=== PATIENT | female | born 1955 | race Caucasian/White ===

== ENCOUNTER → 2017-07-17 09:44 | Outpatient (CLI) | payer OTHER, SELFPAY ==
[2017-07-17 12:32] LABS: AST(SGOT) 17 U/L (15-37); Alanine Aminotransfer ALT/SGPT 29 U/L (13-56); Albumin, Serum 3.7 g/dL (3.2-5.0); Alkaline Phosphatase 55 U/L (45-117); Anion Gap 7 (5-15); BUN 16 mg/dL (7-18); Calcium,Total 8.9 mg/dL (8.5-10.1); Chloride 99 mmol/L (98-107); Cholesterol 250 mg/dL (200); Creatinine, Serum 0.89 mg/dL (0.55-1.02); EST Glomerular Filtration Rate 68 mL/min (>60); Est Glom Filt Rate - Afr Amer 82 mL/min (>60); Globulin 3.8 g/dL (2.2-4.2); Glucose 155 mg/dL (74-106); High Density Lipoprotein 63 mg/dL; Protein, Total 7.5 g/dL (6.4-8.2); Sodium Level 135 mmol/L (136-145); Triglycerides 165 mg/dL; Very Low Density Lipoprotein 33 mg/dL (5-40)
[2017-07-17 12:33] LABS: Hemoglobin A1c 7.2 % (4.2-6.3)
[2017-07-17 12:39] LABS: Microalbumin,Random Urine 6.4 mg/L (NO RANGE EST.); Microalbumin:Creatinine Ratio 12.1 mg/g CRE (<30 mg/g CRE)
== END ==
PROVIDERS: Family Provider Family Medicine; PCP Family Medicine; Visit Provider Family Medicine
DX: E11.9 Type 2 diabetes mellitus without complications (principal)
CPT/HCPCS: 36415; 80053; 80061; 82043; 82570; 83036

== ENCOUNTER → 2017-10-10 11:53 | Outpatient (CLI) | payer OTHER, SELFPAY ==
--- NOTE | 2017-10-10 11:53 | DT_ITS ---
This patient was seen during an EMR downtime October 06, 2017 - October 13, 2017. This patient may have a combination of paper and electronic documentation or all paper documentation. All documentation is viewable within the e-chart portion of [facility] for each patient visit.
[2017-10-11 06:08] LABS: Cholesterol 139 mg/dL (200); Free T3 2.9 pg/mL (2.18-3.98); High Density Lipoprotein 65 mg/dL; T4 Free Direct 1.27 ng/dL (0.76-1.46); Thyroid Stim Hormone (TSH) 0.29 uIU/mL (0.358-3.74); Triglycerides 185 mg/dL; Very Low Density Lipoprotein 37 mg/dL (5-40)
[2017-10-13 09:34] LABS: Vitamin B12 1177 pg/mL (211-911); Vitamin D,25 Hydroxy 42.1 ng/mL (29.95-100.01)
== END ==
PROVIDERS: Family Provider Family Medicine; PCP Family Medicine; Visit Provider Family Medicine
DX: Z00.00 Encounter for general adult medical examination without abnormal findings (principal); E03.9 Hypothyroidism, unspecified; E11.9 Type 2 diabetes mellitus without complications; E89.0 Postprocedural hypothyroidism; E78.00 Pure hypercholesterolemia, unspecified
CPT/HCPCS: 36415; 80061; 82306; 82607; 84439; 84443; 84481

== ENCOUNTER → 2018-02-02 09:44 | Outpatient (CLI) | payer OTHER, SELFPAY ==
[2018-02-02 12:11] LABS: Erythrocyte Sedimentation Rate 36 mm/hr (0-30)
[2018-02-02 12:22] LABS: ALB/GLOB Ratio 0.9 RATIO (0.9-2.4); AST(SGOT) 15 U/L (15-37); Alanine Aminotransfer ALT/SGPT 24 U/L (13-56); Albumin, Serum 3.8 g/dL (3.2-5.0); Alkaline Phosphatase 61 U/L (45-117); Anion Gap 11 (5-15); BUN 24 mg/dL (7-18); BUN/Creat Ratio 23.1 RATIO (10-20); Calcium,Total 9.5 mg/dL (8.5-10.1); Chloride 101 mmol/L (98-107); Cholesterol 156 mg/dL (200); Creatinine, Serum 1.04 mg/dL (0.55-1.02); EST Glomerular Filtration Rate 57 mL/min (>60); Est Glom Filt Rate - Afr Amer 69 mL/min (>60); Globulin 4.1 g/dL (2.2-4.2); Glucose 136 mg/dL (74-106); High Density Lipoprotein 65 mg/dL; Potassium 4.2 mmol/L (3.5-5.1); Protein, Total 7.9 g/dL (6.4-8.2); Rheumatoid Factor < 10.0 IU/mL (<15); Sodium Level 138 mmol/L (136-145); T4 Free Direct 1.23 ng/dL (0.76-1.46); Thyroid Stim Hormone (TSH) 0.99 uIU/mL (0.358-3.74); Triglycerides 135 mg/dL; Very Low Density Lipoprotein 27 mg/dL (5-40); Vitamin B12 1313 pg/mL (211-911); Vitamin D,25 Hydroxy 65.8 ng/mL (29.95-100.01)
[2018-02-02 12:28] LABS: Microalbumin,Random Urine < 5.0 mg/L (NO RANGE EST.)
[2018-02-04 11:43] LABS: ANTINUCLEAR ANTIBODIES DIRECT Negative (Negative)
[2018-02-05 13:31] LABS: C-Peptide 3.9 ng/mL (1.1-4.4)
== END ==
PROVIDERS: PCP Family Medicine; Visit Provider Internal Medicine Endocrinology, Diabetes & Metabolism
DX: E11.65 Type 2 diabetes mellitus with hyperglycemia (principal); R61 Generalized hyperhidrosis
CPT/HCPCS: 36415; 80053; 80061; 82043; 82306; 82570; 82607; 83520; 84439; 84443; 84681; 85652; 86038; 86431

== ENCOUNTER → 2018-03-17 10:37 | Outpatient (CLI) | payer OTHER, SELFPAY ==
--- NOTE | 2018-03-17 10:49 | BD_ITS ---
STUDY: DUAL ENERGY X-RAY ABSORPTIOMETRY / DXA REASON FOR EXAM: Female, 62 years old. The patient is postmenopausal. Loss of height. TECHNIQUE: Bone Mineral Density (BMD) measurements of lumbar spine and bilateral hips were obtained. COMPARISON: Comparison is made with prior study dated July 01, 2002. FINDINGS: Lumbar Spine (L1-L4): g/cm2 (0.915) / T-score (-2.2) / Z-score (-0.7) Findings are suggestive of osteopenia with a moderate fracture risk. Left Femur Total: g/cm2 (0.855) / T-score (-1.2) / Z-score (-0.1) Left Femoral Neck: g/cm2 (0.719) / T-score (-2.3) / Z-score (0.9) Right Femur Total: g/cm2 (0.846) / T-score (-1.3) / Z-score (-0.1) Right Femoral Neck: g/cm2 (0.761) / T-score (-2.0) / Z-score (-0.6) The T-Scores on the most recent prior examination were: Lumbar Spine (L1-L4): There has been worsening of bone density since the previous examination. Left Femur Total: which represents a worsening of 8.5%. BD/Dexa Bone Density Study IMPRESSION: The patient is considered osteopenic as outlined below according to World Randall Organization (WHO) criteria with a moderate fracture risk. There has been worsening of bone density since the previous examination. Reference Information: The T-score is the number of standard deviations above or below the standard which is normal for young adults at their peak bone mineral density. The World Health Organization (WHO) interprets the T-scores as follows: Above -1 Normal bone density Between -1 and -2.5 Osteopenia Equal to / or below -2.5 Osteoporosis As a practical clinical guideline, osteopenia may be graded as follows: Mild -1 through -1.5 Moderate -1.6 through -2.0 Severe -2.1 through -2.4 The Z-score is the number of standard deviations above or below age-matched controls. A Z-score of less than -1.5 would be considered abnormal. References: 1. NIH Osteoporosis and Related Bone Diseases http://www.osteo.org 2. International Society for Clinical Densitometry http://www.iscd.org 3. National Osteoporosis Foundation http://www.nof.org Electronically Signed: Kemal Adams MD at 15:44 EST Tel [phone], Service support ,
== END ==
PROVIDERS: PCP Family Medicine; Visit Provider Internal Medicine Endocrinology, Diabetes & Metabolism
DX: Z13.820 Encounter for screening for osteoporosis (principal)
CPT/HCPCS: 77080

== ENCOUNTER → 2018-05-27 08:54 | Outpatient (CLI) | payer OTHER, SELFPAY ==
[2018-05-27 12:50] LABS: AST(SGOT) 20 U/L (15-37); Alanine Aminotransfer ALT/SGPT 26 U/L (13-56); Albumin, Serum 3.9 g/dL (3.2-5.0); Alkaline Phosphatase 72 U/L (45-117); Anion Gap 12 (5-15); BUN 23 mg/dL (7-18); BUN/Creat Ratio 24.3 RATIO (10-20); Calcium,Total 9.7 mg/dL (8.5-10.1); Chloride 103 mmol/L (98-107); Cholesterol 164 mg/dL (200); Creatinine, Serum 0.95 mg/dL (0.55-1.02); EST Glomerular Filtration Rate 63 mL/min (>60); Est Glom Filt Rate - Afr Amer 76 mL/min (>60); Globulin 3.9 g/dL (2.2-4.2); Glucose 111 mg/dL (74-106); High Density Lipoprotein 66 mg/dL; Protein, Total 7.8 g/dL (6.4-8.2); Sodium Level 139 mmol/L (136-145); Triglycerides 192 mg/dL; Very Low Density Lipoprotein 38 mg/dL (5-40)
[2018-05-27 13:27] LABS: Hemoglobin A1c 7.3 % (4.2-6.3)
--- OUTSIDE RECORDS SUMMARY | 2018-07-29 05:25 | XMS RPT_ITS ---
:1955 Author Organization OHIP Care Team Providers Name Role Phone Betty Blake Attending Unavailable Betty Blake Attending Unavailable Betty Blake Primary Care Unavailable Betty Blake Attending Unavailable Betty Blake Primary Care Unavailable Sarita Khan Attending Unavailable Sarita Khan Attending Unavailable PROBLEMS PROBLEMS DATE TYPE CONDITION / CODE ATTENDING STATUS SOURCE 02/20/2018 Unknown E11.65 - Type 2 Erin Active [place] diabetes mellitus Sarita N. [facility] / E11.65(ICD-10) Repository 10/29/2017 Unknown Z00.00 - Encounter Betty Blake Active [place] for general adult [facility] without abnormal Repository findings / Z00.00(ICD-10) 08/11/2017 Active Unknown / NA Active [facility] UNK(Unknown) Main [place] Repository PROCEDURES PROCEDURES No Procedure Records FoundRESULTS RESULTS COMPREHENSIVE METABOLIC Collected: 05/27/2018 Status: F Source: [place] YARELY 8:56 AM [facility] REPOSITORY TYPE CODE TESTS RESULT OUT OF RANGE REFERENCE UNITS LAB L501.0100 74-106 mg/dL High GLU 111 Result Comment: Fasting Glucose result from 100 to 125 mg/dL suggests IMPAIRED HOMEOSTASIS per A.D.A. criteria. Please note revised GLUCOSE reference range effective 2017. LAB L501.1000 7-18 mg/dL High BUN 23 LAB L501.1100 0.55-1.02 mg/dL Normal CREAT,SERUM 0.95 Result Comment: The validity of the calculated GFR AND GFRAA in patients over 70 years has not been determined. Clinical correlation is essential. LAB L501.1110 >60 mL/min Normal EST GFR 63 Result Comment: Non- GFR Calc LAB L501.1115 >60 mL/min Normal EST GFR - AA 76 Result Comment: GFR Calc LAB L501.1300 10-20 RATIO High BUN/CRE 24.3 LAB L501.1500 6.4-8.2 g/dL T Normal PROT 7.8 LAB L501.1800 3.2-5.0 g/dL Normal ALB 3.9 LAB L501.1950 2.2-4.2 g/dL Normal GLOB 3.9 LAB L501.2000 0.9-2.4 RATIO Normal A/G 1.0 LAB L501.2200 8.5-10.1 mg/dL CA Normal 9.7 LAB L501.4100 15-37 U/L Normal AST 20 LAB L501.4305 45-117 U/L Normal ALK P 72 LAB L501.4405 13-56 U/L Normal ALT 26 LAB L501.4600 0.20-1.00 mg/dL T Normal BILI 0.40 LAB L501.5300 136-145 mmol/L NA Normal 139 LAB L501.5600 3.5-5.1 mmol/L K Normal 4.0 LAB L501.5900 98-107 mmol/L CL Normal 103 LAB L501.6100 21.0-32.0 mmol/L Normal CO2 24.0 LAB L501.6200 5-15 Normal GAP 12 Performed By: #### L500.4050, L500.4100, L501.9520 #### [facility] [address] [place], [place], [address] LIPID PROFILE Collected: 05/27/2018 Status: F Source: [place] 8:[address] [facility] REPOSITORY TYPE CODE TESTS RESULT OUT OF RANGE REFERENCE UNITS LAB L501.4900 200 mg/dL Normal CHOL 164 Result Comment: <200 mg/dL Desirable 200-240 mg/dL Borderline >240 mg/dL High Risk LAB L501.5000 mg/dL Normal TRIG 192 Result Comment: The drugs N-Acetylcysteine and Metamizole may falsely depress this assay. Serum Triglycerides Reference Interval Normal <150 mg/dL Borderline high 150 - 199 mg/dL High 200 - 499 mg/dL Very High > or = 500 mg/dL LAB L501.6400 mg/dL Normal HDL 66 Result Comment: The drugs N-Acetylcysteine and Metamizole may falsely depress this assay. Reference Range HDL <40 mg/dL Low HDL Cholesterol HDL >or= 60 mg/dL High HDL Cholesterol LAB L501.6500 0-130 mg/dL Normal LDL 60 LAB L501.6600 5-40 mg/dL Normal VLDL 38 Performed By: #### L500.4050, L500.4100, L501.9520 #### [facility] [address] [place], [address] THYROID STIM HORMONE Collected: 05/27/2018 Status: F Source: [place] (TSH) 8:[address] [facility] REPOSITORY TYPE CODE TESTS RESULT OUT OF RANGE REFERENCE UNITS LAB L501.9520 0.358-3.74 uIU/mL Normal TSH 0.60 Performed By: #### L500.4050, L500.4100, L501.9520 #### [facility] [address] [facility] [place], [address] HEMOGLOBIN A1C Collected: 05/27/2018 Status: F Source: [place] 8:[address] [facility] REPOSITORY TYPE CODE TESTS RESULT OUT OF RANGE REFERENCE UNITS LAB L501.9985 4.2-6.3 % High HGB A1C 7.3 Performed By: #### L501.9985 #### [facility] [address] [place], [address] DEXA BONE DENSITY Observed: 03/17/2018 Status: F Source: [place] STUDY 10:[address] [facility] REPOSITORY [facility] Imaging Services [address] [place] [address] Dexa Bone Density Study MR#: [id number] Acct: [id number] Name: CHAYA JAMA Rep #: [id number] : 1955 F 62 From: Kemal Adams MD PCP: Betty Blake MD Status: REG CLI Study: Dexa Bone Density Study Date of Exam: 03/17/18 Exam# [id number] Ordering Dr: Sarita Khan MD STUDY: DUAL ENERGY X-RAY ABSORPTIOMETRY / DXA REASON FOR EXAM: Female, 62 years old. The patient is postmenopausal. Loss of height. TECHNIQUE: Bone Mineral Density (BMD) measurements of lumbar spine and bilateral hips were obtained. COMPARISON: Comparison is made with prior study dated July 01, 2002. FINDINGS: Lumbar Spine (L1-L4): g/cm2 (0.915) / T-score (-2.2) / Z-score (-0.7) Findings are suggestive of osteopenia with a moderate fracture risk. Left Femur Total: g/cm2 (0.855) / T-score (-1.2) / Z- score (-0.1) Left Femoral Neck: g/cm2 (0.719) / T-score (-2.3) / Z- score (0.9) Right Femur Total: g/cm2 (0.846) / T-score (-1.3) / Z- score (-0.1) Right Femoral Neck: g/cm2 (0.761) / T-score (-2.0) / Z-score (-0.6) The T-Scores on the most recent prior examination were: Lumbar Spine (L1-L4): There has been worsening of bone density since the previous examination. Left Femur Total: which represents a worsening of 8.5%. BD/Dexa Bone Density Study IMPRESSION: The patient is considered osteopenic as outlined below according to World Randall Organization (WHO) criteria with a moderate fracture risk. There has been worsening of bone density since the previous examination. Reference Information: The T-score is the number of standard deviations above or below the standard which is normal for young adults at their peak bone mineral density. The World Health Organization (WHO) interprets the T-scores as follows: Above -1 Normal bone density Between -1 and -2.5 Osteopenia Equal to / or below -2.5 Osteoporosis As a practical clinical guideline, osteopenia may be graded as follows: Mild -1 through -1.5 Moderate -1.6 through -2.0 Severe -2.1 through -2.4 The Z-score is the number of standard deviations above or below age-matched controls. A Z-score of less than -1.5 would be considered abnormal. References: 1. NIH Osteoporosis and Related Bone Diseases http://www.osteo.org 2. International Society for Clinical Densitometry http://www.iscd.org 3. National Osteoporosis Foundation http://www.nof.org Electronically Signed: Kemal Adams MD at 15:44 EST Tel [phone], Service support , CC: Sarita Khan MD; Betty Blake MD Invas Tech: Signed ERYTHROCYTE SED RATE Collected: 02/02/2018 Status: F Source: [place] 9:[address] [facility] REPOSITORY TYPE CODE TESTS RESULT OUT OF RANGE REFERENCE UNITS LAB L102.0000 0-30 mm/hr High SED RATE 36 Performed By: #### L101.9900 #### [facility] [place], [place], [address] COMPREHENSIVE METABOLIC Collected: 02/02/2018 Status: F Source: [place]TT 9:[address] [facility] REPOSITORY Order Comment: Comments: [id number] METANEPHRINES EDTA PLASMA REF TYPE CODE TESTS RESULT OUT OF RANGE REFERENCE UNITS LAB L501.0100 74-106 mg/dL High GLU 136 Result Comment: Fasting Glucose result greater than or equal to 126 mg/dL suggests DIABETES MELLITUS per A.D.A. criteria. Please note revised GLUCOSE reference range effective 2017. LAB L501.1000 7-18 mg/dL High BUN 24 LAB L501.1100 0.55-1.02 mg/dL High CREAT,SERUM 1.04 Result Comment: The validity of the calculated GFR AND GFRAA in patients over 70 years has not been determined. Clinical correlation is essential. LAB L501.1110 >60 mL/min Low EST GFR 57 Result Comment: Non- GFR Calc LAB L501.1115 >60 mL/min Normal EST GFR - AA 69 Result Comment: GFR Calc LAB L501.1300 10-20 RATIO High BUN/CRE 23.1 LAB L501.1500 6.4-8.2 g/dL T Normal PROT 7.9 LAB L501.1800 3.2-5.0 g/dL Normal ALB 3.8 LAB L501.1950 2.2-4.2 g/dL Normal GLOB 4.1 LAB L501.2000 0.9-2.4 RATIO Normal A/G 0.9 LAB L501.2200 8.5-10.1 mg/dL CA Normal 9.5 LAB L501.4100 15-37 U/L Normal AST 15 LAB L501.4305 45-117 U/L Normal ALK P 61 LAB L501.4405 13-56 U/L Normal ALT 24 LAB L501.4600 0.20-1.00 mg/dL T Normal BILI 0.40 LAB L501.5300 136-145 mmol/L NA Normal 138 LAB L501.5600 3.5-5.1 mmol/L K Normal 4.2 LAB L501.5900 98-107 mmol/L CL Normal 101 LAB L501.6100 21.0-32.0 mmol/L Normal CO2 26.0 LAB L501.6200 5-15 Normal GAP 11 Performed By: #### L500.4050, L500.4100, L501.9520, L505.7010, L506.0400 #### [facility] [address] [place], [place], [address] LIPID PROFILE Collected: 02/02/2018 Status: F Source: [place] 9:[address] [facility] REPOSITORY Order Comment: Comments: [id number] METANEPHRINES EDTA PLASMA REF TYPE CODE TESTS RESULT OUT OF RANGE REFERENCE UNITS LAB L501.4900 200 mg/dL Normal CHOL 156 Result Comment: <200 mg/dL Desirable 200-240 mg/dL Borderline >240 mg/dL High Risk LAB L501.5000 mg/dL Normal TRIG 135 Result Comment: The drugs N-Acetylcysteine and Metamizole may falsely depress this assay. Serum Triglycerides Reference Interval Normal <150 mg/dL Borderline high 150 - 199 mg/dL High 200 - 499 mg/dL Very High > or = 500 mg/dL LAB L501.6400 mg/dL Normal HDL 65 Result Comment: The drugs N-Acetylcysteine and Metamizole may falsely depress this assay. Reference Range HDL <40 mg/dL Low HDL Cholesterol HDL >or= 60 mg/dL High HDL Cholesterol LAB L501.6500 0-130 mg/dL Normal LDL 64 LAB L501.6600 5-40 mg/dL Normal VLDL 27 Performed By: #### L500.4050, L500.4100, L501.9520, L505.7010, L506.0400 #### [facility] [address] [place], [place], [address] THYROID STIM HORMONE Collected: 02/02/2018 Status: F Source: [place] (TSH) 9:[address] [facility] REPOSITORY Order Comment: Comments: [id number] METANEPHRINES EDTA PLASMA REF TYPE CODE TESTS RESULT OUT OF RANGE REFERENCE UNITS LAB L501.9520 0.358-3.74 uIU/mL Normal TSH 0.99 Performed By: #### L500.4050, L500.4100, L501.9520, L505.7010, L506.0400 #### [facility] [address] [place], [address] RHEUMATOID FACTOR Collected: 02/02/2018 Status: F Source: [place] 9:[address] [facility] REPOSITORY Order Comment: Comments: [id number] METANEPHRINES EDTA PLASMA REF TYPE CODE TESTS RESULT OUT OF RANGE REFERENCE UNITS LAB L505.7010 <15 IU/mL Normal RHEUMATOID FAC < 10.0 Performed By: #### L500.4050, L500.4100, L501.9520, L505.7010, L506.0400 #### [facility] [address] [place], [address] T4 FREE DIRECT Collected: 02/02/2018 Status: F Source: [place] 9:[address] [facility] REPOSITORY Order Comment: Comments: [id number] METANEPHRINES EDTA PLASMA REF TYPE CODE TESTS RESULT OUT OF RANGE REFERENCE UNITS LAB L506.0400 0.76-1.46 ng/dL Normal T4 FREE 1.23 DIRECT Performed By: #### L500.4050, L500.4100, L501.9520, L505.7010, L506.0400 #### [facility] [address] [place], [address] VITAMIN B12 Collected: 02/02/2018 Status: F Source: [place] 9:[address] [facility] REPOSITORY TYPE CODE TESTS RESULT OUT OF REFERENCE UNITS RANGE LAB L503.0105 211-911 pg/mL High Vitamin B12 1313 Performed By: #### L503.0105, L506.1000 #### [facility] [address] [place], [address] VITAMIN D,25 HYDROXY Collected: 02/02/2018 Status: F Source: [place] 9:[address] [facility] REPOSITORY TYPE CODE TESTS RESULT OUT OF RANGE REFERENCE UNITS LAB L506.1000 29.95-100.01 ng/mL Normal Vitamin D 65.8 25-OH Result Comment: Vitamin D 25(OH) Status Range Deficiency <20 ng/mL (50nmol/L) Insuffciency 20 - 30 ng/mL (50 - 75 nmol/L) Sufficiency 30 - 100 ng/mL (75 - 250 nmol/L) Toxicity >100 ng/mL (>250 nmol/L) Performed By: #### L503.0105, L506.1000 #### [facility] [address] [place], [place], [address] MICROALB:CREAT Collected: 02/02/2018 Status: F Source: [place] RATIO,RANDOM UR 9:[address] [facility] REPOSITORY TYPE CODE TESTS RESULT OUT OF RANGE REFERENCE UNITS LAB L501.1200 NO RANGE EST. mg/dL 31.60 Normal UR CREAT LAB L502.0500 NO RANGE EST. mg/L < 5.0 Normal MICROALBUMI N,UR LAB L502.0600 <30 mg/g CRE mg/g CRE Test Normal not performed MALB:CREAT Performed By: #### L502.0250 #### [facility] [address], [address] ANTINUCLEAR ANTIBODIES Collected: 02/02/2018 Status: F Source: [place] DIRECT 9:[address] [facility] REPOSITORY TYPE CODE TESTS RESULT OUT OF RANGE REFERENCE UNITS LAB L3100.5475 Negative Normal Negative KIM-DIRECT Result Comment: Performed at: [address] [id number] Car Park Attendant: Jan Lorenzo PhD, Phone: [phone] Performed By: #### L3100.5475 #### [facility] (refer to report for specific site) refer to report for address and phone number C-PEPTIDE Collected: 02/02/2018 Status: F Source: [place] 9:[address] [facility] REPOSITORY TYPE CODE TESTS RESULT OUT OF RANGE REFERENCE UNITS LAB L3100.7750 1.1-4.4 ng/mL Normal C PEPTIDE 3.9 [address]258 Result Comment: C-Peptide reference interval is for fasting patients. Performed at: [address] [id number] [place] Attendant: Raj Granados MD, Phone: [phone] Performed at: [address], [place] [id number] [place] Attendant: Jan Lorenzo PhD, Phone: [phone] Performed By: #### L3100.7750, L3400.5105 #### [facility] (refer to report for specific site) refer to report for address and phone number TRYPTASE Collected: 02/02/2018 Status: F Source: [place] 9:[address] [facility] REPOSITORY TYPE CODE TESTS RESULT OUT OF REFERENCE UNITS RANGE LAB L3400.5105 2.2-13.2 ug/L High TRYPTASE 18.9 Performed By: #### L3100.7750, L3400.5105 #### [facility] (refer to report for specific site) refer to report for address and phone number MISCELLANEOUS LAB Collected: 02/02/2018 Status: F Source: [place] PROCEDURE 9:[address] [facility] REPOSITORY Order Comment: Comments: [id number] METANEPHRINES EDTA PLASMA REF Test(s) Ordered: [id number] METANEPHRINES EDTA PLASMA REF TYPE CODE TESTS RESULT OUT OF RANGE REFERENCE UNITS LAB L801.1541 Normal [facility] LAB TEST Result Comment: TEST RESULT LIMITS Metanephrines, Frac., Pl. Free Normetanephrine, Pl 101 pg/mL 0 - 145 Metanephrine, Pl 22 pg/mL 0 - 62 Concentrations of Normetanephrine between 146 and 487 pg/mL, and Metanephrine between 63 and 255 pg/mL are considered indeterminate. Follow-up biochemical testing is recommended when patient levels fall within this indeterminate range. These tests include repeat testing of plasma/urinary fractionated metanephrines and plasma catecholamines. TESTING PERFORMED AT [facility]. ORIGINAL REPORT ON FILE IN LAB CONTAINS ADDITIONAL TEST SITE INFORMATION. Performed By: #### L801.1541 #### [facility] [address] [place], [address] DOWNTIME REPORT Observed: 10/23/2017 Status: F Source: [place] 12:[address] [facility] REPOSITORY [facility] Medical Records Department [address] [place] [address] Downtime Report MR#: [id number] Acct: [id number] Name: CHAYA JAMA Rep #: [id number] : 1955 61 From: Martínez Russell PCP: Betty Blake MD Status: REG CLI This patient was seen during an EMR downtime October 06, 2017 - October 13, 2017. This patient may have a combination of paper and electronic documentation or all paper documentation. All documentation is viewable within the e-chart portion of [facility] for each patient visit. LIPID PROFILE Collected: 10/10/2017 Status: F Source: [place] 11:[address] [facility] REPOSITORY TYPE CODE TESTS RESULT OUT OF RANGE REFERENCE UNITS LAB L501.4900 200 mg/dL Normal CHOL 139 Result Comment: <200 mg/dL Desirable 200-240 mg/dL Borderline >240 mg/dL High Risk LAB L501.5000 mg/dL Normal TRIG 185 Result Comment: The drugs N-Acetylcysteine and Metamizole may falsely depress this assay. Serum Triglycerides Reference Interval Normal <150 mg/dL Borderline high 150 - 199 mg/dL High 200 - 499 mg/dL Very High > or = 500 mg/dL LAB L501.6400 mg/dL Normal HDL 65 Result Comment: The drugs N-Acetylcysteine and Metamizole may falsely depress this assay. Reference Range HDL <40 mg/dL Low HDL Cholesterol HDL >or= 60 mg/dL High HDL Cholesterol LAB L501.6500 0-130 mg/dL Normal LDL 37 LAB L501.6600 5-40 mg/dL Normal VLDL 37 Performed By: #### L500.4100, L501.49130, L501.9520, L506.0400 #### [facility] [address] [place], [address] FREE T3 Collected: 10/10/2017 Status: F Source: [place] 11:[address] [facility] REPOSITORY TYPE CODE TESTS RESULT OUT OF RANGE REFERENCE UNITS LAB L501.72741 2.18-3.98 pg/mL Normal FREE T3 2.9 Performed By: #### L500.4100, L501.49509, L501.9520, L506.0400 #### [facility] [address] [place], [address] THYROID STIM HORMONE Collected: 10/10/2017 Status: F Source: [place] (TSH) 11:[address] [facility] REPOSITORY TYPE CODE TESTS RESULT OUT OF RANGE REFERENCE UNITS LAB L501.9520 0.358-3.74 uIU/mL Low TSH 0.29 Performed By: #### L500.4100, L501.41445, L501.9520, L506.0400 #### [facility] [address] [place], [address] T4 FREE DIRECT Collected: 10/10/2017 Status: F Source: [place] 11:[address] [facility] REPOSITORY TYPE CODE TESTS RESULT OUT OF RANGE REFERENCE UNITS LAB L506.0400 0.76-1.46 ng/dL Normal T4 FREE 1.27 DIRECT Performed By: #### L500.4100, L501.40347, L501.9520, L506.0400 #### [facility] [address] [place], [address] VITAMIN B12 Collected: 10/10/2017 Status: F Source: [place] 11:[address] [facility] REPOSITORY TYPE CODE TESTS RESULT OUT OF REFERENCE UNITS RANGE LAB L503.0105 211-911 pg/mL High Vitamin B12 1177 Performed By: #### L503.0105, L506.1000 #### [facility] [address] [place], [address] VITAMIN D,25 HYDROXY Collected: 10/10/2017 Status: F Source: [place] 11:[address] [facility] REPOSITORY TYPE CODE TESTS RESULT OUT OF RANGE REFERENCE UNITS LAB L506.1000 29.95-100.01 ng/mL Normal Vitamin D 42.1 25-OH Result Comment: Vitamin D 25(OH) Status Range Deficiency <20 ng/mL (50nmol/L) Insuffciency 20 - 30 ng/mL (50 - 75 nmol/L) Sufficiency 30 - 100 ng/mL (75 - 250 nmol/L) Toxicity >100 ng/mL (>250 nmol/L) Performed By: #### L503.0105, L506.1000 #### [facility] [address] [place], [address] CNCO Observed: 08/11/2017 Status: COMPLETED Source: [place] 4:15 PM [facility] REPOSITORY HNO ID: [id number] Author: Mammography Coordinator Service: (none) Author Type: Physician Type: Letter Filed: 08/12/2017 11:33 PM Note Text: August 11, 2017 PID: [id number] Chaya Jama [address] [place] [address] Dear Nathan Tobias, We are pleased to inform you that the results of your recent breast imaging exam on 08/11/2017 are normal. Your mammogram demonstrates that you have dense breast tissue, which could hide abnormalities. Dense breast tissue, in and of itself, is a relatively common condition. Therefore, this information is not provided to cause undue concern; rather, it is to raise your awareness and promote discussion with your health care provider regarding the presence of dense breast tissue in addition to other risk factors. Early detection of cancer is very important. We also understand recommendations regarding breast cancer screening are controversial. Please discuss with your primary care provider which strategy is best for you and whether a mammogram is right for you. Your imaging studies and report will be kept on file at [facility] as part of your permanent medical record and are available for your continuing care. Thank you for allowing us to help in meeting your health care needs. Sincerely, Dr. Ro Interpreting Radiologist [facility] (Normal over 40) DELONTE SCREENING Observed: 08/11/2017 Status: F Source: [place] 1:35 PM [facility] REPOSITORY * * *Final Report* * * DATE OF EXAM: Aug 11 2017 1:35PM PUNEET 0581 - DELONTE SCREENING / PROCEDURE REASON: ROUTINE * * * * Physician Interpretation * * * * RESULT: #[id number] - [facility] SCREENING BILATERAL DIGITAL SCREENING MAMMOGRAM WITH CAD: 08/11/2017 HISTORY: Routine /Screening Mammogram - patient reports NO breast symptoms /Priors available for comparison. RESULT: TECHNIQUE: The study was acquired using full field digital technology and interpreted from soft copy. Current study was also evaluated with a Computer Aided Detection (CAD). Comparison is made to exams dated: 07/26/2016 mammogram, 07/26/2015 mammogram, and 04/12/2014 mammogram - [facility]. The tissue of both breasts is heterogeneously dense. This may lower the sensitivity of mammography. No significant masses, calcifications, or other findings are seen in either breast. There has been no significant interval change. IMPRESSION: NEGATIVE There is no mammographic evidence of malignancy.A 1 year screening mammogram is recommended. Jyoti aguillon/carrie:08/11/2017 16:15:04 Internal Sales Engineer: Pippa CORDOVA (R)), [facility] letter sent: Normal over 40 Mammogram BI-RADS: 1 Negative Invas Tech: Carrie Transcribe Date/Time: Aug 11 2017 1:20P Dictated by: JYOTI RO MD This examination was interpreted and the report reviewed and electronically signed by: JYOTI RO MD on Aug 11 2017 4:15PM EST [id number] COMPREHENSIVE METABOLIC Collected: 07/17/2017 Status: F Source: [facility] 9:[address] [facility] REPOSITORY TYPE CODE TESTS RESULT OUT OF RANGE REFERENCE UNITS LAB L501.0100 74-106 mg/dL High GLU 155 Result Comment: Fasting Glucose result greater than or equal to 126 mg/dL suggests DIABETES MELLITUS per A.D.A. criteria. Please note revised GLUCOSE reference range effective 2017. LAB L501.1000 7-18 mg/dL Normal BUN 16 LAB L501.1100 0.55-1.02 mg/dL Normal CREAT,SERUM 0.89 Result Comment: The validity of the calculated GFR AND GFRAA in patients over 70 years has not been determined. Clinical correlation is essential. LAB L501.1110 >60 mL/min Normal EST GFR 68 Result Comment: Non- GFR Calc LAB L501.1115 >60 mL/min Normal EST GFR - AA 82 Result Comment: GFR Calc LAB L501.1300 10-20 RATIO Normal BUN/CRE 18.0 LAB L501.1500 6.4-8.2 g/dL T Normal PROT 7.5 LAB L501.1800 3.2-5.0 g/dL Normal ALB 3.7 LAB L501.1950 2.2-4.2 g/dL Normal GLOB 3.8 LAB L501.2000 0.9-2.4 RATIO Normal A/G 1.0 LAB L501.2200 8.5-10.1 mg/dL CA Normal 8.9 LAB L501.4100 15-37 U/L Normal AST 17 LAB L501.4305 45-117 U/L Normal ALK P 55 LAB L501.4405 13-56 U/L Normal ALT 29 Result Comment: Please note revised ALT reference range effective 2017. LAB L501.4600 0.20-1.00 mg/dL Normal T BILI 0.40 LAB L501.5300 136-145 mmol/L Low NA 135 LAB L501.5600 3.5-5.1 mmol/L Normal K 4.0 LAB L501.5900 98-107 mmol/L Normal CL 99 LAB L501.6100 21.0-32.0 mmol/L Normal CO2 29.0 LAB L501.6200 5-15 Normal GAP 7 Performed By: #### L500.4050, L500.4100 #### [facility] [address] [place], [address] LIPID PROFILE Collected: 07/17/2017 Status: F Source: [place] 9:[address] [facility] REPOSITORY TYPE CODE TESTS RESULT OUT OF RANGE REFERENCE UNITS LAB L501.4900 200 mg/dL High CHOL 250 Result Comment: <200 mg/dL Desirable 200-240 mg/dL Borderline >240 mg/dL High Risk LAB L501.5000 mg/dL Normal TRIG 165 Result Comment: The drugs N-Acetylcysteine and Metamizole may falsely depress this assay. Serum Triglycerides Reference Interval Normal <150 mg/dL Borderline high 150 - 199 mg/dL High 200 - 499 mg/dL Very High > or = 500 mg/dL LAB L501.6400 mg/dL Normal HDL 63 Result Comment: The drugs N-Acetylcysteine and Metamizole may falsely depress this assay. Reference Range HDL <40 mg/dL Low HDL Cholesterol HDL >or= 60 mg/dL High HDL Cholesterol LAB L501.6500 0-130 mg/dL High LDL 154 LAB L501.6600 5-40 mg/dL Normal VLDL 33 Performed By: #### L500.4050, L500.4100 #### [facility] [address] [place], [address] HEMOGLOBIN A1C Collected: 07/17/2017 Status: F Source: TRUDY 9:[address] [facility] REPOSITORY TYPE CODE TESTS RESULT OUT OF RANGE REFERENCE UNITS LAB L501.9985 4.2-6.3 % High HGB A1C 7.2 Performed By: #### L501.9985 #### [facility] [address] [place], [address] MICROALB:CREAT Collected: 07/17/2017 Status: F Source: TRUDY RATIO,RANDOM UR 9:[address] [facility] REPOSITORY TYPE CODE TESTS RESULT OUT OF RANGE REFERENCE UNITS LAB L501.1200 NO RANGE EST. mg/dL Normal UR CREAT 52.90 LAB L502.0500 NO RANGE EST. mg/L Normal 6.4 MICROALBUMIN ,UR LAB L502.0600 <30 mg/g CRE mg/g CRE Normal 12.1 MALB:CREAT Performed By: #### L502.0250 #### [facility] [address] [place], [address] ALLERGIES ALLERGIES DATE TYPE / CODE NAME / CODE REACTION SEVERITY SOURCE Drug NO KNOWN [facility] Class/30412 ALLERGIES Main [place] 1003(SNOMED Repository CT) ENCOUNTERS ENCOUNTERS ADMIT/DISCHARGE ACCOUNT ADMITTING ENCOUNTER LOCATION SOURCE NUMBER CLASS 05/27/2018 [id number] [facility] ing:BFHLAB Repository 03/17/2018 [id number] [facility] ing:OPBD Repository 02/02/2018 [id number] [facility] ing:BFHLAB Repository 10/10/2017 [id number] [facility] ing:LAB.FUTUR Repository E 08/11/2017/08/14/19 [id number] Ambulatory [address] Repository 07/17/2017 [id number] Ambulatory Tr[place] [facility] ing:BFHLAB Repository PAYERS PAYERS ENCOUNTER GUARANTOR PAYER SUBSCRIBER SOURCE 05/27/2018 CHAYA K Primary CHAYA K Trudy [id number] [place] Insurance:[employer] WOODDOB: [place], [place] icy Number: [id number] [address]Wgc: [phone]) [id number] Repository [phone] () e Date:7197-14-81NR [facility] [address] [place] [id number]: 05/27/2018 Secondary NOT GIVENUNK Trudy Insurance:SELF PAY [facility] Number: Effective Repository Date:2018-05-27 03/17/2018 CHAYA K Primary CHAYA K [place] [id number] [facility]:[employer] WOODDOB: [place] Number: [id number] [id number]: [phone]) [id number] Repository [phone] () e Date:[id number] [address]EW: 03/17/2018 Secondary NOT GIVENUNK Trudy Insurance:SELF PAY [facility] Number: Effective Repository Date:2018-03-09 02/02/2018 CHAYA K Primary CHAYA K [place] [id number] [place] Insurance:[employer] WOODDOB: [place] Number: [id number] [address]Pxz: [phone]) [id number] Repository [phone] () e Date:0844-08-29IO[address] [address]FI: 02/02/2018 Secondary NOT GIVENUNK [place] Insurance:SELF PAY [facility] Number: Effective Repository Date:2018-02-02 10/10/2017 ELIAS [id number] Primary CHAYA K [place] Insurance:[employer] WOODDOB: [place] Number: [id number] [address]Kvd: 330 [id number] Repository [phone] () e Date:0798-04-10BO [address] [address]DY: 10/10/2017 Secondary NOT GIVENUNK Trudy Insurance:SELF PAY [facility] Number: Effective Repository Date:2017-09-23 07/17/2017 ELIAS [id number] Primary CHAYA Zeinab Yates [place] Insurance:[facility]: [place] icy Number: [id number] [address]Mgm: ([phone] [id number] Repository [phone] () e Date:0523-11-30EQ [facility] [address] [place] [id number]: 07/17/2017 Secondary NOT GIVENUNK [place] Insurance:SELF PAY [facility] Number: Effective Repository Date:2017-07-17
== END ==
PROVIDERS: PCP Family Medicine; Visit Provider Family Medicine
DX: R74.8 Abnormal levels of other serum enzymes (principal)
CPT/HCPCS: 36415; 80053; 80061; 83036; 84443

== ENCOUNTER 2018-07-21 05:21 | Day surgery (SDC) | payer OTHER, SELFPAY ==
[2018-07-21] VITALS (13 sets, daily range): BP systolic 53–123; BP diastolic 24–89; PULSE 61–83; RESP 16–18; TEMP 36.1–36.4; O2SAT 92–100; BMI 22.8
[2018-07-21] MEDS: Ondansetron 4 MG/2 ML Vial (06:23)
--- NOTE | 2018-07-21 06:26 | SUR.PREOP ---
PT. GO NAUSEATED AND HAD EMESIS. WHILE HAVING EMESIS HAD SOME STOOL THAT WAS BROWN. DR. RIVERS NOTIFIED AND NS ENEMA GIVEN.
--- NOTE | 2018-07-21 06:30 | COLBX_PTH ---
PATIENT: CHAYA JAMA LOC: EN U#:[id number] AGE/SX: 62/F ROOM: RE07/21/[address]: Dr. Rafael Riley MD : [id number] BED: DIS: 07/21/2018 SPEC #: [id number] RECD: 07/21/18 08:59 STATUS: DIEGO SARITA #: [id number] ESTEE: 07/21/18 06:[address]: Rafael Riley DEPT: SURGICAL PATHOLOGY RECD BY: Gato Box ENTERED: 07/21/18 12:58 SP TYPE: COLON BX KANDI DR: Dr. Betty Blake MD Tissues: A - Sigmoid colon biopsy B - Transverse colon Procedures: Surgery Specimen Level IV HEADER OPERATION: Colonoscopy (MOD) PRE-OP DIAGNOSIS: Screening TISSUE SUBMITTED: A - Proximal sigmoid polyp, B - Mid transverse polyp biopsy MICROSCOPIC DIAGNOSIS A. Proximal sigmoid colon polyp, biopsy: Fragments of tubular adenoma. B. Mid transverse colon polyp, biopsy: Tubular adenoma. AM:tacho 07/22/18 COMMENT Case has been reviewed in consultation with Dr. Bobo who concurs with the above diagnosis. IDC:JUSTINE MICROSCOPIC DESCRIPTION Slides are reviewed. GROSS DESCRIPTION A - Received in fixative is one container labeled with the patient's name and designated proximal sigmoid polyp. The specimen consists of multiple irregular fragments of light jorgensen soft tissue that in aggregate measure 0.5 x 0.5 x 0.1 cm. The specimen is totally submitted in one cassette. B - Received in fixative is one container labeled with the patient's name and designated mid transverse polyp. The specimen consists of one irregular fragment of light jorgensen soft tissue that measures 0.3 x 0.3 x 0.1 cm. The specimen is totally submitted in one cassette. / JUSTINE:tacho 07/21/18 TC:5 CPT: 44420 x2
--- NOTE | 2018-07-21 06:31 | PCM.HP.STD ---
Problem List (1) Screening for intestinal cancer Status: Acute History of Present Illness Date of Admission: 07/21/18 The patient is a 62 year old F presents for screening for intestinal cancer. She has had 2 previous colonoscopies performed by Dr. Inderjit Yang. She denies bright red blood per rectum or melena. No abdominal pain. She is a strong family history of colon cancer with colon cancer in her father and her brother and extended relatives. She otherwise enjoys good health. She is diabetic. She has never had DVT. Past Medical History Allergies No Known Allergies Allergy (Verified 07/16/18 16:04) Home Medications: Ambulatory Orders Medication Instructions Recorded Aspirin [Aspir 81] 81 mg PO DAILY 07/16/18 Biotin 5 mg PO DAILY 07/16/18 Calcium Carbonate/Vitamin D3 1 each PO BID 07/16/18 [Caltrate 600 Plus D3 Tablet] Dulaglutide [Trulicity] 1.5 mg SQ QWEEK 07/16/18 Ertugliflozin Pidolate [Steglatro] 15 mg PO DAILY 07/16/18 Glucosamine/MSM/Chondroitin A 1 each PO BID 07/16/18 [Glucosamine Chondroit MSM Tab] Levothyroxine Sodium [Synthroid] 100 mcg PO DAILY 07/16/18 Lisinopril 5 mg PO DINNER 07/16/18 Metformin HCl 500 mg PO BID 07/16/18 Mv,Aditya,Iron,Mn/Folic Acid/Chol 2 each PO BID 07/16/18 [Hair, Skin and Nails Capsule] Omeprazole 20 mg PO DAILY 07/16/18 Rosuvastatin Calcium [Crestor] 5 mg PO QHS 07/16/18 Smoking Status: Never smoker Review of Systems Constitutional: Denies: Anorexia HEENT: Denies: Difficulty Swallowing Cardiovascular: Denies: Chest Pain, Claudication Respiratory: Denies: Cough Gastrointestinal: Denies: Abdominal Pain, Melena Skin: Denies: Jaundice Endocrine: Denies: Change in Body Habitus VTE Information - Inpt Only VTE Present on Admission: No Patient Problems: Active and Suspected Problems Screening for intestinal cancer (Acute) - Physical Exam General: Alert, Oriented x3, Cooperative, No apparent distress HEENT: Atraumatic Oral: Moist Mucosa Neck: Supple, No JVD Lungs: Clear to auscultation Cardiovascular: Regular rate, Regular Rhythm Abdomen: Bowel Sounds Present, Soft, Non Tender Extremities: No clubbing Psych/Mental Status: Normal Affect Vital Signs Temp Pulse Resp BP Pulse Ox 97.5 F L 83 16 113/79 97 07/21/18 05:45 07/21/18 05:45 07/21/18 05:45 07/21/18 05:45 07/21/18 05:45 Oxygen Delivery Method Room Air Weight: 137 lb 9.095 oz Body Mass Index (BMI) 22.8 Assessment/Plan All Active Problems Screening for intestinal cancer (Acute) I am recommending the patient a colonoscopy with possible biopsy or polypectomy as indicated. She is aware of the technique, benefits, risks and alternatives. She has had an opportunity to ask and have questions answered. She presents via our open access program. We will proceed as noted. Rafael Riley M.D., F.A.C.S.
--- NOTE | 2018-07-21 07:00 | OP.ENDO_ITS ---
07/21/2018 Betty Blake [place] [id number] [address] Re : Colonoscopy procedure for Gabriela Collado Dear Dr. Blake This procedure was performed on Saturday, July 21, 2018. My impressions and recommendations are as follows: Impressions : - Hemorrhoids found on perianal exam. - Diverticulosis in the sigmoid colon. - One 4 mm polyp in the mid transverse colon. Biopsied. - One 8 mm polyp in the proximal sigmoid colon, removed with a cold snare. Resected and retrieved. Recommendations : - Discharge patient to home. - Resume previous diet. - Continue present medications. - Repeat colonoscopy in 5 years for surveillance. - Telephone my office for pathology results in 1 week. My findings are described in the full procedure note, which is enclosed. If I can be of further assistance, please feel free to contact me at Doctor phone number(s): Work: . Sincerely, Rafael Riley MD 07/21/2018 7:00:10 AM This report has been signed electronically.
[2018-07-21 07:15] LABS: Bedside Glucose 134 mg/dL (70-110)
== END 2018-07-21 09:01 | disposition home or self-care (01) ==
LOC: EN 05:22 → AC 05:24
PROVIDERS: Family Provider Family Medicine; PCP Family Medicine; Referring Provider Surgery; Visit Provider Surgery
PROC: 0DJD8ZZ Inspection of Lower Intestinal Tract, Via Natural or Artificial Opening Endoscopic (ICD-10-PCS; CPT 45378; principal; 2018-07-21 06:25)
DX: Z12.11 Encounter for screening for malignant neoplasm of colon (principal); D12.5 Benign neoplasm of sigmoid colon; D12.3 Benign neoplasm of transverse colon; K57.30 Diverticulosis of large intestine without perforation or abscess without bleeding; K64.9 Unspecified hemorrhoids; E11.9 Type 2 diabetes mellitus without complications; Z79.82 Long term (current) use of aspirin; Z79.84 Long term (current) use of oral hypoglycemic drugs; Z79.899 Other long term (current) drug therapy; Z80.0 Family history of malignant neoplasm of digestive organs
CPT/HCPCS: 45380; 45385; 82962; 88305; 99152; 99153; J7120; J2405

== ENCOUNTER → 2018-07-28 15:38 | Outpatient (CLI) | payer OTHER, SELFPAY ==
[2018-07-28 13:58] VITALS: BMI 22.8
[2018-08-03 12:15] LABS: HPV APTIMA, High Risk Negative (Negative)
== END ==
PROVIDERS: Family Provider Family Medicine; PCP Family Medicine; Referring Provider Nurse Practitioner Women's Health; Visit Provider Nurse Practitioner Women's Health
DX: N89.8 Other specified noninflammatory disorders of vagina (principal); Z12.4 Encounter for screening for malignant neoplasm of cervix
CPT/HCPCS: 87086; 87088; 87624; 88175; G0145

== ENCOUNTER → 2018-08-04 09:23 | Outpatient (CLI) | payer OTHER, SELFPAY ==
[2018-07-28 13:58] VITALS: BMI 22.8
[2018-08-04 12:26] LABS: Hemoglobin A1c 7.8 % (4.2-6.3)
[2018-08-04 12:30] LABS: ALB/GLOB Ratio 1.1 RATIO (0.9-2.4); AST(SGOT) 19 U/L (15-37); Alanine Aminotransfer ALT/SGPT 24 U/L (13-56); Albumin, Serum 4.2 g/dL (3.2-5.0); Alkaline Phosphatase 68 U/L (45-117); Anion Gap 7 (5-15); BUN 19 mg/dL (7-18); BUN/Creat Ratio 18.6 RATIO (10-20); Calcium,Total 9.4 mg/dL (8.5-10.1); Chloride 100 mmol/L (98-107); Cholesterol 168 mg/dL (200); Creatinine, Serum 1.02 mg/dL (0.55-1.02); EST Glomerular Filtration Rate 58 mL/min (>60); Est Glom Filt Rate - Afr Amer 70 mL/min (>60); Globulin 3.7 g/dL (2.2-4.2); Glucose 162 mg/dL (74-106); High Density Lipoprotein 55 mg/dL; Potassium 4.1 mmol/L (3.5-5.1); Protein, Total 7.9 g/dL (6.4-8.2); Sodium Level 134 mmol/L (136-145); Thyroid Stim Hormone (TSH) 0.48 uIU/mL (0.358-3.74); Triglycerides 196 mg/dL; Very Low Density Lipoprotein 39 mg/dL (5-40)
== END ==
PROVIDERS: Family Provider Family Medicine; PCP Family Medicine; Visit Provider Internal Medicine Endocrinology, Diabetes & Metabolism
DX: E03.9 Hypothyroidism, unspecified (principal); E11.65 Type 2 diabetes mellitus with hyperglycemia
CPT/HCPCS: 36415; 80053; 80061; 83036; 84439; 84443

== ENCOUNTER → 2018-08-25 | Outpatient (CLI) | payer OTHER, SELFPAY ==
[2018-07-28 13:58] VITALS: BMI 22.8
[2018-08-25 11:31] VITALS: BMI 22.8
--- NOTE | 2018-08-25 11:49 | BI_ITS ---
MAMMOGRAPHY - BILATERAL SCREENING 3-D TOMOSYNTHESIS REASON FOR EXAM: Female, 62 years old. Bilateral Screening 3-D tomosynthesis PERTINENT HISTORY: No significant family history. TECHNIQUE: 2-D mammograms and 3-D Tomosynthesis of the breast (s) were performed. CAD was performed. COMPARISON: August 11, 2017 FINDINGS: The breast composition is composed of scattered fibroglandular density. Scattered benign calcifications are seen. No dense spiculated masses or suspicious microcalcifications are identified. No architectural distortion is identified. There is no skin thickening or retraction. There has been no significant change since the prior study. BI/SCREEN MAMM (CAD) W/ALEXI BILAT IMPRESSION: No mammographic signs of malignancy. Routine yearly mammograms recommended. ASSESSMENT CATEGORY: BIRADS Category 2: Benign. A letter regarding these results will be sent to the patient by the facility within 30 days. FOLLOW UP RECOMMENDATION: Yearly follow up mammogram recommended. (A) Approximately 10% of breast cancers are not detected by mammography. A normal mammogram should not delay biopsy of a clinically suspicious abnormality. Electronically Signed: Sha Raymond MD at 13:30 EDT , Service support ,
== END | disposition home or self-care (01) ==
PROVIDERS: Family Provider Family Medicine; PCP Family Medicine; Referring Provider Nurse Practitioner Women's Health; Visit Provider Nurse Practitioner Women's Health
DX: Z12.31 Encounter for screening mammogram for malignant neoplasm of breast (principal); N95.2 Postmenopausal atrophic vaginitis
CPT/HCPCS: 77063; 77067; 87070; 87106; 87205

== ENCOUNTER → 2018-11-12 | Outpatient (CLI) | payer OTHER, SELFPAY ==
[2018-08-25 11:31] VITALS: BMI 22.8
[2018-11-12 13:04] LABS: AST(SGOT) 16 U/L (15-37); Alanine Aminotransfer ALT/SGPT 24 U/L (13-56); Albumin, Serum 3.7 g/dL (3.2-5.0); Alkaline Phosphatase 54 U/L (45-117); Anion Gap 8 (5-15); BUN 19 mg/dL (7-18); BUN/Creat Ratio 21.5 RATIO (10-20); Chloride 105 mmol/L (98-107); Creatinine, Serum 0.88 mg/dL (0.55-1.02); EST Glomerular Filtration Rate 68 mL/min (>60); Est Glom Filt Rate - Afr Amer 82 mL/min (>60); Globulin 3.8 g/dL (2.2-4.2); Glucose 94 mg/dL (74-106); Potassium 4.3 mmol/L (3.5-5.1); Protein, Total 7.5 g/dL (6.4-8.2); Sodium Level 139 mmol/L (136-145); T4 Total, Thyroxin 11.2 ug/dL (4.8-13.9); Thyroid Stim Hormone (TSH) 0.45 uIU/mL (0.358-3.74)
[2018-11-12 13:09] LABS: Hemoglobin A1c 7.2 % (4.2-6.3)
[2018-11-12 15:29] LABS: T4 Free Direct 1.25 ng/dL (0.76-1.46)
== END | disposition home or self-care (01) ==
LOC: BFHLAB 09:57
PROVIDERS: Family Provider Family Medicine; PCP Family Medicine; Visit Provider Internal Medicine Endocrinology, Diabetes & Metabolism
DX: E11.65 Type 2 diabetes mellitus with hyperglycemia (principal); E03.9 Hypothyroidism, unspecified
CPT/HCPCS: 36415; 80053; 83036; 84436; 84439; 84443

== ENCOUNTER → 2019-09-20 14:06 | Outpatient (CLI) | payer MEDICARE, SELFPAY ==
[2018-08-25 11:31] VITALS: BMI 22.8
[2019-09-20 13:12] VITALS: BMI 22.8
--- NOTE | 2019-09-20 14:16 | BI_ITS ---
MAMMOGRAPHY - BILATERAL SCREENING REASON FOR EXAM: Female, 63 years old. Routine annual screening examination. PERTINENT HISTORY: NO FM HX , CURRENT ESTRACE CREAM USE SINCE 07/2018 TECHNIQUE: Digital bilateral breast alexi (3D mammographic acquisition) in the CC and MLO projections. 2-D mediolateral oblique (MLO) and craniocaudad (CC) views of both breasts were obtained. CAD: Full Field Digital Mammography with Computer Added Detection was performed. COMPARISON: MG Breast Bilateral Aug 25 2018 12:22pm. FINDINGS: Breast Composition: The breasts are heterogeneously dense, which may obscure small masses. There are no dominant masses or suspicious calcifications. No other significant abnormalities are identified. BI/SCREEN MAMM (CAD) W/ALEXI BILAT IMPRESSION: Stable bilateral screening mammogram. Yearly follow-up mammogram recommended. (A) ASSESSMENT CATEGORY: BIRADS Category 2: Benign. A letter regarding these results will be sent to the patient by the facility within 30 days. Approximately 10% of breast cancers are not detected by mammography. A normal mammogram should not delay biopsy of a clinically suspicious abnormality. [id number] Electronically Signed: Albert Méndez, at 13:57 EDT Tel , Service support ,
== END ==
PROVIDERS: PCP Family Medicine; Referring Provider Obstetrics & Gynecology; Visit Provider Obstetrics & Gynecology
DX: Z12.31 Encounter for screening mammogram for malignant neoplasm of breast (principal)
CPT/HCPCS: 77063; 77067

== ENCOUNTER → 2019-11-03 | Outpatient (CLI) | payer MEDICARE, SELFPAY ==
[2019-11-03 09:49] VITALS: BMI 22.8
[2019-11-07 23:45] LABS: HSV Culture Without Typing Positive (.)
== END | disposition home or self-care (01) ==
LOC: LABSPEC 17:05
PROVIDERS: PCP Family Medicine; Referring Provider Nurse Practitioner Women's Health; Visit Provider Nurse Practitioner Women's Health
DX: N89.8 Other specified noninflammatory disorders of vagina (principal)
CPT/HCPCS: 87255

== ENCOUNTER → 2019-12-03 14:55 | Outpatient (CLI) | payer MEDICARE, SELFPAY ==
[2019-11-23 09:19] VITALS: BMI 22.8
[2019-12-03 15:46] LABS: Absolute Lymphocyte Count 3.69 X10^3/uL (0.83-4.51); Basophil# 0.09 X10^3/uL; Basophil% 0.9 % (0-1); Eosinophil# 0.46 X10^3/uL; Eosinophils% 4.5 % (0-5); Hematocrit 36.7 % (37-47); Hemoglobin 11.7 g/dL (12.0-15.0); Lymphocyte # 3.69 X10^3/ul (4.0); Lymphocyte % 35.9 % (19-41); Mean Corp Hgb Conc 31.9 g/dL (32-36); Mean Corpuscular Hgb 22.5 pg (27.0-32.0); Mean Corpuscular Volume 70.4 fL (81-99); Mean Platelet Vol. 9.8 fl (6.2-12.0); Monocyte% 9.7 % (0-10); NRBC Flagged by Analyzer 0 % (0-5); Neutrophil # 5.01 X10^3/uL (2.7-7.7); Neutrophil % 48.8 % (47-70); Platelet Count 385 K/mm3 (150-450); RBC Distribution Width CV 17.5 % (11.6-14.6); RBC Distribution Width SD 40.1 fl (35.1-43.9); Red Blood Count 5.21 M/mm3 (4.2-5.4); White Blood Count 10.3 K/mm3 (4.4-11.0)
[2019-12-03 16:10] LABS: CRP 3.88 mg/L (0.0-3.0)
[2019-12-03 16:16] LABS: Erythrocyte Sedimentation Rate 71 mm/hr (0-30)
== END ==
PROVIDERS: PCP Internal Medicine; Referring Provider Orthopaedic Surgery; Visit Provider Orthopaedic Surgery
DX: M51.36 Other intervertebral disc degeneration, lumbar region (principal)
CPT/HCPCS: 36415; 85025; 85652; 86140

== ENCOUNTER → 2020-09-13 12:25 | Outpatient (CLI) | payer MEDICARE, SELFPAY ==
[2019-11-23 09:19] VITALS: BMI 22.8
--- NOTE | 2020-09-13 12:47 | EKG12_ITS ---
Test Reason : PRE OP Blood Pressure : / mmHG Vent. Rate : 075 BPM Atrial Rate : 075 BPM P-R Int : 144 ms QRS Dur : 088 ms QT Int : 398 ms P-R-T Axes : 046 -19 054 degrees QTc Int : 444 ms Normal sinus rhythm Low voltage QRS Borderline ECG Confirmed by JASON JONES, UMANG ([id number]), video effects editor JESICA BENTON ([id number]) on 09/14/2020 1:58:16 PM Referred By: Lg Talbot Confirmed By:UMANG GOMEZ MD
[2020-09-13 13:20] LABS: Hematocrit 37.4 % (37-47); Hemoglobin 11.6 g/dL (12.0-15.0); Mean Corpuscular Hgb 21.8 pg (27.0-32.0); Mean Corpuscular Volume 70.2 fL (81-99); Mean Platelet Vol. 10.3 fl (6.2-12.0); Platelet Count 313 K/mm3 (150-450); RBC Distribution Width CV 15.7 % (11.6-14.6); RBC Distribution Width SD 38.8 fl (35.1-43.9); Red Blood Count 5.33 M/mm3 (4.2-5.4); White Blood Count 6.7 K/mm3 (4.4-11.0)
[2020-09-13 13:53] LABS: Anion Gap 7 (5-15); BUN 16 mg/dL (7-18); BUN/Creat Ratio 16.8 RATIO (10-20); Calcium,Total 9.3 mg/dL (8.5-10.1); Chloride 104 mmol/L (98-107); Creatinine, Serum 0.95 mg/dL (0.55-1.02); EST Glomerular Filtration Rate 62 mL/min (>60); Est Glom Filt Rate - Afr Amer 75 mL/min (>60); Glucose 159 mg/dL (74-106); Hemoglobin A1c 6.8 % (3.8-5.6); Potassium 4.1 mmol/L (3.5-5.1); Sodium Level 136 mmol/L (136-145)
== END ==
PROVIDERS: PCP Internal Medicine; Referring Provider Physician Assistant; Visit Provider Physician Assistant
DX: Z01.810 Encounter for preprocedural cardiovascular examination (principal); Z01.818 Encounter for other preprocedural examination
CPT/HCPCS: 36415; 80048; 83036; 85027; 93005

== ENCOUNTER → 2020-09-20 12:41 | Outpatient (CLI) | payer MEDICARE, SELFPAY ==
[2019-11-23 09:19] VITALS: BMI 22.8
--- NOTE | 2020-09-20 12:43 | BI_ITS ---
MAMMOGRAPHY - BILATERAL SCREENING 3-D TOMOSYNTHESIS REASON FOR EXAM: Female, 64 years old. Routine screening PERTINENT HISTORY: History of hormone use.. TECHNIQUE: 2-D mammograms and 3-D Tomosynthesis of the breast (s) were performed. CAD was performed. COMPARISON: 09/20/2019 FINDINGS: The breast composition is heterogeneously dense that can obscure small breast masses. Scattered benign calcifications are seen. No dense spiculated masses or suspicious microcalcifications are identified. No architectural distortion is identified. There is no skin thickening or retraction. There has been no significant change since the prior study. BI/SCRN MAMM (CAD)W/ALEXI BILAT IMPRESSION: No mammographic signs of malignancy. Routine yearly mammograms recommended. ASSESSMENT CATEGORY: BIRADS Category 1: Negative. A letter regarding these results will be sent to the patient by the facility within 30 days. FOLLOW UP RECOMMENDATION: Yearly follow up mammogram recommended. (A) Approximately 10% of breast cancers are not detected by mammography. A normal mammogram should not delay biopsy of a clinically suspicious abnormality. Electronically Signed: Donnell Guido MD at 13:21 EDT , Service support ,
== END ==
PROVIDERS: PCP Internal Medicine; Referring Provider Internal Medicine; Visit Provider Internal Medicine
DX: Z12.31 Encounter for screening mammogram for malignant neoplasm of breast (principal)
CPT/HCPCS: 77063; 77067

== ENCOUNTER → 2021-09-25 | Outpatient (CLI) | payer MEDICARE, SELFPAY ==
--- NOTE | 2021-09-25 10:14 | BI_ITS ---
MAMMOGRAPHY - BILATERAL SCREENING REASON FOR EXAM: Female, 65 years old. Routine annual screening examination. PERTINENT HISTORY: History of hormone use. TECHNIQUE: Digital bilateral breast alexi (3D mammographic acquisition) in the CC and MLO projections. 2-D mediolateral oblique (MLO) and craniocaudad (CC) views of both breasts were obtained. CAD: Full Field Digital Mammography with Computer Added Detection was performed. COMPARISON: Screening mammogram from 09/20/2020 09/20/2019, 08/25/2018. FINDINGS: Breast Composition: The breasts are heterogeneously dense, which may obscure small masses. There are no dominant masses or suspicious calcifications. No other significant abnormalities are identified. There has been no significant change since the prior study. BI/SCRN MAMM (CAD)W/ALEXI BILAT IMPRESSION: Stable bilateral screening mammogram. Yearly follow-up mammogram recommended. (A) ASSESSMENT CATEGORY: BIRADS Category 1: Negative. A letter regarding these results will be sent to the patient by the facility within 30 days. Approximately 10% of breast cancers are not detected by mammography. A normal mammogram should not delay biopsy of a clinically suspicious abnormality. [id number] Electronically Signed: Guillaume Massey, at 11:42 EDT ,
== END | disposition home or self-care (01) ==
LOC: OPBI 10:12
PROVIDERS: PCP Internal Medicine; Visit Provider Internal Medicine
DX: Z12.31 Encounter for screening mammogram for malignant neoplasm of breast (principal)
CPT/HCPCS: 77063; 77067

== ENCOUNTER → 2022-09-26 | Outpatient (CLI) | payer MEDICARE, SELFPAY ==
--- NOTE | 2022-09-26 10:19 | BI_ITS ---
MAMMOGRAPHY - BILATERAL SCREENING REASON FOR EXAM: Female, 66 years old. Routine annual screening examination. PERTINENT HISTORY: Non-contributory. TECHNIQUE: Digital bilateral breast alexi (3D mammographic acquisition) in the CC and MLO projections. 2-D mediolateral oblique (MLO) and craniocaudad (CC) views of both breasts were obtained. CAD: Full Field Digital Mammography with Computer Added Detection was performed. COMPARISON: Screening mammogram from 09/25/2021, 09/20/2020. FINDINGS: Breast Composition: The breasts are heterogeneously dense, which may obscure small masses. There are no dominant masses or suspicious calcifications. No other significant abnormalities are identified. There has been no significant change since the prior study. BI/SCRN MAMM (CAD)W/ALEXI BILAT IMPRESSION: Stable bilateral screening mammogram. Yearly follow-up mammogram recommended. (A) ASSESSMENT CATEGORY: BIRADS Category 1: Negative. A letter regarding these results will be sent to the patient by the facility within 30 days. Approximately 10% of breast cancers are not detected by mammography. A normal mammogram should not delay biopsy of a clinically suspicious abnormality. Electronically Signed: Guillaume Massey DO at 9:20 EDT ,
== END | disposition home or self-care (01) ==
PROVIDERS: PCP Internal Medicine; Referring Provider Internal Medicine; Visit Provider Internal Medicine
DX: Z12.31 Encounter for screening mammogram for malignant neoplasm of breast (principal)
CPT/HCPCS: 77063; 77067

== ENCOUNTER → 2023-05-14 | Outpatient (CLI) | payer MEDICARE, SELFPAY ==
--- NOTE | 2023-05-14 13:06 | RAD_ITS ---
INDICATION: PRE OP EXAMINATION/TECHNIQUE: X-RAY - XR Chest 2 Views COMPARISON: No relevant prior comparison study available FINDINGS: LINES/DEVICES: None. LUNGS: No consolidation, edema or effusion. No pneumothorax. MEDIASTINUM AND CARDIOVASCULAR STRUCTURES: Cardiac silhouette not enlarged. Central airways and mediastinal contour are unremarkable. BONES AND SOFT TISSUES: Degenerative changes of the thoracic spine. Surgical pin overlying the left humeral head. RAD/Chest PA and Lateral IMPRESSION: No radiographic evidence of acute cardiopulmonary disease. Electronically Signed: Red Wylie MD at 13:44 EST ,
[2023-05-14 13:27] LABS: Absolute Lymphocyte Count 1.99 X10^3/uL (0.83-4.51); Absolute Neutrophil Count 4.3 X10^3/uL (2.0-7.7); Basophil# 0.06 X10^3/uL; Basophil% 0.8 % (0-1); Eosinophil# 0.14 X10^3/uL; Eosinophils% 1.9 % (0-5); Hematocrit 35.5 % (37-47); Lymphocyte # 1.99 X10^3/ul (0.83-4.51); Lymphocyte % 27.5 % (19-41); Mean Corpuscular Hgb 21.6 pg (27.0-32.0); Mean Corpuscular Volume 69.7 fL (81-99); Mean Platelet Vol. 9.9 fl (6.2-12.0); Monocyte# 0.74 X10^3/uL; Monocyte% 10.2 % (0-10); NRBC Flagged by Analyzer 0 % (0-5); Neutrophil # 4.28 X10^3/uL (2.7-7.7); Neutrophil % 59.2 % (47-70); Platelet Count 366 K/mm3 (150-450); RBC Distribution Width CV 16.6 % (11.6-14.6); RBC Distribution Width SD 40.9 fl (35.1-43.9); Red Blood Count 5.09 M/mm3 (4.2-5.4); White Blood Count 7.2 K/mm3 (4.4-11.0)
[2023-05-14 13:35] LABS: International Normalized Ratio 0.9; Prothrombin Time (Protime)PT. 12.2 SECONDS (11.7-14.9)
[2023-05-14 13:36] LABS: Partial Thromboplast Time 26.1 Seconds (24.1-36.2)
[2023-05-14 14:01] LABS: Anion Gap 7 (5-15); BUN 16 mg/dL (7-18); BUN/Creat Ratio 15.8 RATIO (10-20); Calcium,Total 9.1 mg/dL (8.5-10.1); Chloride 102 mmol/L (98-107); Creatinine, Serum 1.01 mg/dL (0.55-1.02); EST Glomerular Filtration Rate 58 mL/min (>60); Est Glom Filt Rate - Afr Amer 70 mL/min (>60); Glucose 165 mg/dL (74-106); Potassium 4.1 mmol/L (3.5-5.1); Sodium Level 136 mmol/L (136-145)
== END | disposition home or self-care (01) ==
PROVIDERS: PCP Internal Medicine; Referring Provider Orthopaedic Surgery; Visit Provider Orthopaedic Surgery
DX: Z01.810 Encounter for preprocedural cardiovascular examination (principal); Z01.811 Encounter for preprocedural respiratory examination; Z01.818 Encounter for other preprocedural examination; Z01.812 Encounter for preprocedural laboratory examination
CPT/HCPCS: 36415; 71046; 80048; 85025; 85610; 85730

== ENCOUNTER → 2023-05-22 | Outpatient (CLI) | payer MEDICARE, SELFPAY ==
[2023-05-22 14:04] LABS: Hemoglobin A1c 6.7 % (3.8-5.6)
== END | disposition home or self-care (01) ==
LOC: LAB 10:43
PROVIDERS: PCP Internal Medicine; Referring Provider Physician Assistant Surgical; Visit Provider Physician Assistant Surgical
DX: M47.896 Other spondylosis, lumbar region (principal)
CPT/HCPCS: 36415; 83036

== ENCOUNTER 2023-07-03 07:18 | Observation (INO) | payer MEDICARE, SELFPAY ==
[2023-07-03] VITALS (15 sets, daily range): BP systolic 73–130; BP diastolic 39–109; PULSE 57–84; RESP 16–18; TEMP 36.1–37.3; O2SAT 92–99; BMI 22.3
--- NOTE | 2023-07-03 06:30 | RAD_ITS ---
PROCEDURE: T9-T10 laminectomy. DATE OF EXAMINATION: July 03, 2023 INDICATION: Female, 67 years old. Spinal cord stimulator device FLUOROSCOPY TIME (if supplied): (22.3 seconds) minutes/seconds. 3.95 mGy Intraoperative imaging provided for T9-T10 laminectomy and spinal cord stimulator insertion. RAD/Thoracic Spine 2 Views IMPRESSION: Intraoperative imaging provided for T9-T10 laminectomy and spinal cord stimulator insertion. Electronically Signed: Kemal Adams MD at 9:49 EST ,
[2023-07-03] MEDS: Lactated Ringers 1,000 ML 15 ML IV (06:52)
--- OUTSIDE RECORDS SUMMARY | 2023-07-03 07:03 | XMS RPT_ITS | CCD ---
Author Name Unknown Address [address] [place] [address] Organization [facility] Care Team Providers Care Edge Baster Name Role Phone Wesley JONES, Jesika Primary Care Provider Tucker Andrews Unavailable Patrick MEDINAAudrey Unavailable GANTA, JESIKA Primary Care Unavailable GANTA, JESIKA Referring Unavailable GANTA, JESIKA Primary Care Unavailable GANTA, JESIKA Attending Unavailable DEVEN, KENDALL Ellsworth Attending Unavailable GANTA, JESIKA Primary Care Unavailable GANTA, JESIKA Referring Unavailable GANTA, JESIKA Primary Care Unavailable GANTA, JESIKA Attending Unavailable FELICIANO, NATALIIA Attending Unavailable GANTA, JESIKA Primary Care Unavailable GANTA, JESIKA Primary Care Unavailable GANTA, JESIKA Referring Unavailable DENBOW, JESICA Referring Unavailable GANTA, JESIKA Primary Care Unavailable GANTA, JESIKA Primary Care Unavailable DENBOW, JESICA Attending Unavailable GANTA, JESIKA Primary Care Unavailable DENBOW, JESICA Referring Unavailable GANTA, JESIKA Primary Care Unavailable DENBOW, JESICA Attending Unavailable DENBOW, JESICA Referring Unavailable GANTA, JESKIA Primary Care Unavailable GANTA, JESIKA Primary Care Unavailable DENBOW, JESICA Attending Unavailable GANTA, JESIKA Primary Care Unavailable GANTA, JESIKA Referring Unavailable GANTA, JESIKA Primary Care Unavailable Allergies Allergy Classification Reported Allergen(s) Allergy Type Date of Onset Reaction(s) Facility (14 sources) diphenhydrAMINE; Translations: [DIPHENHYDRAMINE ] Drug Allergy 09-19-2022 Other: See Comments [facility] Medications Current Medications Medication Drug Class(es) Dates Sig (Normalized) Sig (Original) carbamide peroxide 65 mg/ml otic solution (1 source) Start: 08-20-2022 End: 08-27-2022 carbamide peroxide (DEBROX) 6.5 % otic solution Use 5 Drops in both ears twice daily for 7 days. 15 mL 1 08/20/2022 08/27/2022 Active Completed/Discontinued Medications Medication Drug Class(es) Dates Sig (Normalized) Sig (Original) alendronic acid 70 mg oral tablet (20 sources) Bisphosphonate Start: 03-23-2021 End: 01-08-2023 take 1 tablet by mouth every week alendronate (FOSAMAX) 70 mg tablet Indications: Osteopenia of multiple sites TAKE 1 TABLET BY MOUTH WEEKLY WITH 8 OZ OF PLAIN WATER 30 MINUTES BEFORE FIRST FOOD, DRINK OR MEDS. STAY UPRIGHT FOR 30 MINS 12 tablet 3 01/08/2023 Active Problems Active Problems Problem Classification Problem Date Documented Date Episodic/Chronic Complications of surgical procedures or medical care (20 sources) Postoperative hypothyroidism; Translations: [Postprocedural hypothyroidism] Onset: 04-25-2011 04-30-2021 Chronic Deficiency and other anemia (1 source) Anemia; Translations: [Anemia, unspecified] Episodic Deficiency and other anemia (1 source) Microcytic anemia; Translations: [Iron deficiency anemia, unspecified] 02-12-2023 Episodic Diabetes mellitus with complications (20 sources) Type 2 diabetes mellitus; Translations: [Type 2 diabetes mellitus with hypoglycemia with coma] Onset: 09-01-2006 07-11-2020 Chronic Diabetes mellitus without complication (20 sources) Type 2 diabetes mellitus without complication; Translations: [Type 2 diabetes mellitus without complications] Onset: 09-01-2006 Chronic Disorders of lipid metabolism (20 sources) Mixed hyperlipidemia; Translations: [Mixed hyperlipidemia] 07-11-2020 Chronic Esophageal disorders (20 sources) Gastroesophageal reflux disease; Translations: [Gastro-esophageal reflux disease without esophagitis] 11-20-2009 Chronic Essential hypertension (20 sources) Benign essential hypertension; Translations: [Essential (primary) hypertension] Onset: 03-15-2014 09-13-2014 Chronic Genitourinary symptoms and ill-defined conditions (1 source) Dysuria; Translations: [Dysuria] 02-12-2023 Episodic Headache; including migraine (1 source) Headache; Translations: [Headache, unspecified headache type] Episodic Headache; including migraine (1 source) Headache; including migraine; Translations: [Headache, unspecified headache type] Onset: 07-24-2022 Nonmalignant breast conditions (20 sources) Fibrocystic disease of breast; Translations: [Diffuse cystic mastopathy of unspecified breast] Onset: 04-01-2011 04-01-2011 Chronic Nutritional deficiencies (3 sources) Cobalamin deficiency; Translations: [Deficiency of other specified B group vitamins] Episodic Other ear and sense organ disorders (1 source) Bilateral tinnitus; Translations: [Tinnitus, bilateral] Episodic Other ear and sense organ disorders (1 source) Impacted cerumen in left ear; Translations: [Impacted cerumen, left ear] Episodic Other nervous system disorders (1 source) Other chronic pain; Translations: [Chronic midline low back pain without sciatica] Onset: 11-20-2009 Chronic Other skin disorders (3 sources) Loss of hair; Translations: [Nonscarring hair loss, unspecified] Episodic Other skin disorders (1 source) Telogen effluvium; Translations: [Telogen effluvium] 03-20-2023 Episodic Prolapse of female genital organs (20 sources) Midline cystocele; Translations: [Cystocele, midline] Onset: 03-14-2010 11-18-2016 Chronic Spondylosis; intervertebral disc disorders; other back problems (3 sources) Spondylitis; Translations: [Unspecified inflammatory spondylopathy, lumbar region] 03-20-2023 Chronic Unclassified (1 source) Chronic midline low back pain without sciatica; Translations: [Chronic midline low back pain without sciatica] Onset: 11-20-2009 Urinary tract infections (1 source) Acute cystitis; Translations: [Acute cystitis with hematuria] 02-12-2023 Episodic Past or Other Problems Problem Classification Problem Date Documented Da te Episodic/Chronic Cardiac dysrhythmias (2 sources) Intermittent palpitations; Translations: [Palpitations] Onset: 03-20-2023 03-20-2023 Episodic Deficiency and other anemia (1 source) Iron deficiency anemia, unspecified; Translations: [Microcytic anemia] Onset: 03-19-2023 Episodic Nausea and vomiting (2 sources) Nausea; Translations: [Nausea] Onset: 07-24-2022 Episodic Other aftercare (1 source) laborer marine terminal (current) use of insulin; Translations: [Type 2 diabetes mellitus without complication, with long-term current use of insulin (HCC)] Onset: 07-22-2022 Episodic Other bone disease and musculoskeletal deformities (20 sources) Osteopenia; Translations: [Other specified disorders of bone density and structure, multiple sites] Onset: 09-20-2015 07-01-2019 Episodic Other ear and sense organ disorders (1 source) Tinnitus, bilateral; Translations: [Tinnitus of both ears] Onset: 07-24-2022 Episodic Other ear and sense organ disorders (1 source) Impacted cerumen, left ear; Translations: [Impacted cerumen of left ear] Onset: 07-24-2022 Episodic Other hematologic conditions (20 sources) Microcytosis; Translations: [Other abnormality of red blood cells] Onset: 11-14-2009 01-16-2011 Episodic Other hematologic conditions (1 source) Other abnormality of red blood cells; Translations: [Microcytosis] Onset: 01-16-2011 Episodic Other screening for suspected conditions (not mental disorders or infectious disease) (20 sources) Patient encounter status; Translations: [Encounter for screening for malignant neoplasm of colon] Onset: 06-30-2009 Episodic Other skin disorders (1 source) Telogen effluvium; Translations: [Telogen effluvium] Onset: 03-20-2023 Episodic Other skin disorders (1 source) Nonscarring hair loss, unspecified; Translations: [Hair loss] Onset: 02-10-2023 Episodic Residual codes; unclassified (20 sources) Family history of cancer of colon; Translations: [Family history of malignant neoplasm of digestive organs] Onset: 12-04-2011 12-04-2011 Episodic Spondylosis; intervertebral disc disorders; other back problems (20 sources) Chronic back pain ; Translations: [Dorsalgia, unspecified] Onset: 07-27-2009 11-20-2009 Episodic Varicose veins of lower extremity (20 sources) Varicose veins of left lower limb; Translations: [Asymptomatic varicose veins of left lower extremity] Onset: 10-03-2014 10-17-2015 Episodic Results Test Name Value Interpretation Reference Range Facil ity Vital Signs Date Time Vital Sign Value Performing Clinician Fritz garza 03-20-2023 09:12-0500 Body height 165.1 cm Jesica Valdovinos PA-C Work Phone: [facility] 03-20-2023 09:12-0500 Body temperature 97.5 [degF] Jesica Valdovinos PA-C Work Phone: [facility] 03-20-2023 09:12-0500 Body weight 62.14 kg Jesica Denbow PA-C Work Phone: [facility] 03-20-2023 09:12-0500 Diastolic blood pressure 60 mm[Hg] Jesica Denbow PA-C Work Phone: [facility] 03-20-2023 09:12-0500 Heart rate 68 /min Jesica Denbow PA-C Work Phone: [facility] 03-20-2023 09:12-0500 Respiratory rate 12 /min Jesica Denbow PA-C Work Phone: [facility] 03-20-2023 09:12-0500 SaO2% (BldA) [Mass fraction] 96 % Jesica Denbow PA-C Work Phone: [facility] 03-20-2023 09:12-0500 Systolic blood pressure 126 mm[Hg] Jesica Denbow PA-C Work Phone: [facility] 02-12-2023 12:31-0400 Body height 165.1 cm Jesica Denbow PA-C Work Phone: [facility] 02-12-2023 12:31-0400 Body temperature 98.4 [degF] Jesica Denbow PA-C Work Phone: [facility] 02-12-2023 12:31-0400 Body weight 61.69 kg Jesica Denbow PA-C Work Phone: [facility] 02-12-2023 12:31-0400 Diastolic blood pressure 70 mm[Hg] Jesica Denbow PA-C Work Phone: [facility] 02-12-2023 12:31-0400 Heart rate 82 /min Jesica Denbow PA-C Work Phone: [facility] 02-12-2023 12:31-0400 Respiratory rate 12 /min Jesica Denbow PA-C Work Phone: [facility] 02-12-2023 12:31-0400 SaO2% (BldA) [Mass fraction] 98 % Jesica Denbow PA-C Work Phone: [facility] 02-12-2023 12:31-0400 Systolic blood pressure 126 mm[Hg] Jesica Denbow PA-C Work Phone: [facility] 12-31-2022 13:54-0400 Body height 165.1 cm Jesica Denbow PA-C Work Phone: [facility] 12-31-2022 13:54-0400 Body weight 61.24 kg Jesica Denbow PA-C Work Phone: [facility] 12-31-2022 13:54-0400 Diastolic blood pressure 70 mm[Hg] Jesica Denbow PA-C Work Phone: [facility] 12-31-2022 13:54-0400 Heart rate 87 /min Jesica Denbow PA-C Work Phone: [facility] 12-31-2022 13:54-0400 Respiratory rate 12 /min Jesica Denbow PA-C Work Phone: [facility] 12-31-2022 13:54-0400 SaO2% (BldA) [Mass fraction] 98 % Jesica Denbow PA-C Work Phone: [facility] 12-31-2022 13:54-0400 Systolic blood pressure 130 mm[Hg] Jesica Denbow PA-C Work Phone: [facility] 09-19-2022 09:55-0400 Heart rate 66 /min Kendall Javier MD Work Phone: [facility] 09-19-2022 09:55-0400 SaO2% (BldA) [Mass fraction] 98 % Kendall Javier MD Work Phone: [facility] 09-19-2022 09:45-0400 Diastolic blood pressure 72 mm[Hg] Kendall Javier MD Work Phone: [facility] 09-19-2022 09:45-0400 Respiratory rate 16 /min Kendall Javier MD Work Phone: [facility] 09-19-2022 09:45-0400 Systolic blood pressure 119 mm[Hg] Kendall Javier MD Work Phone: [facility] 09-19-2022 08:11-0400 Body temperature 97.5 [degF] Kendall Javier MD Work Phone: [facility] 09-19-2022 08:11-0400 Body weight 62.1 kg Kendall Javier MD Work Phone: [facility] 08-20-2022 13:35-0400 Body height 165.1 cm Jesika Olson MD Work Phone: [facility] 08-20-2022 13:35-0400 Body temperature 98.29 [degF] Jesika Olson MD Work Phone: [facility] 08-20-2022 13:35-0400 Body weight 62.14 kg Jesika Olson MD Work Phone: [facility] 08-20-2022 13:35-0400 Diastolic blood pressure 56 mm[Hg] Jesika Olson MD Work Phone: [facility] 08-20-2022 13:35-0400 Heart rate 76 /min Jesika Olson MD Work Phone: [facility] 08-20-2022 13:35-0400 Respiratory rate 12 /min Jesika Olson MD Work Phone: [facility] 08-20-2022 13:35-0400 SaO2% (BldA) [Mass fraction] 98 % Jesika Olson MD Work Phone: [facility] 08-20-2022 13:35-0400 Systolic blood pressure 114 mm[Hg] Jesika Olson MD Work Phone: [facility] 04-08-2022 08:56-0500 Body height 165.1 cm Jesika Olson MD Work Phone: [facility] 04-08-2022 08:56-0500 Body temperature 98.01 [degF] Jesika Olson MD Work Phone: [facility] 04-08-2022 08:56-0500 Body weight 63.05 kg Jesika Olson MD Work Phone: [facility] 04-08-2022 08:56-0500 Diastolic blood pressure 72 mm[Hg] Jesika Olson MD Work Phone: [facility] 04-08-2022 08:56-0500 Heart rate 92 /min Jesika Olson MD Work Phone: [facility] 04-08-2022 08:56-0500 Respiratory rate 12 /min Jesika Olson MD Work Phone: [facility] 04-08-2022 08:56-0500 SaO2% (BldA) [Mass fraction] 99 % Jesika Olson MD Work Phone: [facility] 04-08-2022 08:56-0500 Systolic blood pressure 130 mm[Hg] Jesika Olson MD Work Phone: [facility] 11-16-2021 13:29-0400 Body height 165.1 cm Jesika Olson MD Work Phone: [facility] 11-16-2021 13:29-0400 Body temperature 98.6 [degF] Jesika Olson MD Work Phone: [facility] 11-16-2021 13:29-0400 Body weight 63.05 kg Jesika Olson MD Work Phone: [facility] 11-16-2021 13:29-0400 Diastolic blood pressure 56 mm[Hg] Jesika Olson MD Work Phone: [facility] 11-16-2021 13:29-0400 Heart rate 78 /min Jesika Olson MD Work Phone: [facility] 11-16-2021 13:29-0400 Respiratory rate 12 /min Jesika Olson MD Work Phone: [facility] 11-16-2021 13:29-0400 SaO2% (BldA) [Mass fraction] 98 % Jesika Olson MD Work Phone: [facility] 11-16-2021 13:29-0400 Systolic blood pressure 114 mm[Hg] Jesika Olson MD Work Phone: [facility] Encounters Encounter Date Encounter Type Care Provider Facility Start: 06-20-2023 Telephone encounter Jesika springer MD Work Phone: [facility] Procedures Date Procedure Procedure Detail Performing Clinician Start: 03-20-2023 INFLUENZA VACCINE, P RSV FREE, AGE 65+ YR, HIGH DOSE, QUADRIVALENT (FLUZONE HIGH-DOSE) Jesica Valdovinos PA-C Work Phone: Start: 02-12-2023 Urnls dip stick/tabl et rgnt auto w/o microscopy Jesica Valdovinos PA-C Work Phone: Start: 09-19-2022 Level iv surg pathol ogy gross&microscopic exam Kendall Javier MD Work Phone: Start: 09-19-2022 Colonoscopy flx dx w /collj spec when pfrmd Jesika Olson MD Work Phone: Start: 09-19-2022 Colonoscopy Jesika springer MD Work Phone: Start: 09-25-2021 Mammography Jesika springer MD Work Phone: Start: 09-20-2020 Mammography Audrey Nguyen [facility] Work Phone: Start: 07-04-2020 Adult depression scr eening assessment Audrey Nguyen [facility] Work Phone: Start: 07-21-2018 Colonoscopy Audrey Nguyen [facility] Work Phone: Plan of Treatment Date Care Activity Detail Author Start: 09-19-2025 Colonoscopy COLONOSCOPY [facility] Start: 09-19-2025 COLORECTAL CANCER SCREENING COLORECTAL CANCER SCREENING [facility] Start: 09-19-2025 Screening for malign ant neoplasm of colon [facility] Start: 03-20-2024 Annual PCP Team Adult Literacy Instructor lauri Disease Visit Annual PCP Team Chronic Disease Visit [facility] Start: 03-20-2024 BP Controlled (<130/80) BP Controlle d (<130/80) [facility] Start: 02-14-2024 Fecal Occult Blood Fecal Occult Bloo d [facility] Start: 02-14-2024 Screening for malign ant neoplasm of colon Fecal Occult Blood [facility] Start: 02-13-2024 Annual PCP Team Adult Literacy Instructor lauri Disease Visit Annual PCP Team Chronic Disease Visit [facility] Start: 02-13-2024 BP Controlled (<130/80) BP Controlle d (<130/80) [facility] Start: 01-01-2024 ANNUAL PCP TEAM AIRPLANE ENGINEER LAURI DISEASE VISIT ANNUAL PCP TEAM CHRONIC DISEASE VISIT [facility] Start: 12-31-2023 Hepatitis B surface antibody level LDL CHOLESTEROL [facility] Start: 11-20-2023 Hemoglobin A1c measurement HbA1C [facility] Start: 10-09-2023 Glaucoma screening Dilated Retinal E xam [facility] Start: 10-09-2023 Hepatitis C antibody , confirmatory test DILATED RETINAL EXAM [facility] Start: 09-27-2023 Hepatitis B screening URINE AL BUMIN:CREATININE RATIO [facility] Start: 09-25-2023 ANNUAL PCP TEAM AIRPLANE ENGINEER LAURI DISEASE VISIT ANNUAL PCP TEAM CHRONIC DISEASE VISIT [facility] Start: 09-25-2023 BP CONTROLLED (<130/80) BP CONTROLLE D (<130/80) [facility] Start: 08-21-2023 3 comp foot exam completed DIABETIC FOOT EXAM [facility] Start: 08-21-2023 ANNUAL PCP TEAM ODELL LAURI DISEASE VISIT ANNUAL PCP TEAM CHRONIC DISEASE VISIT [facility] Start: 08-21-2023 BP CONTROLLED (<130/80) BP CONTROLLE D (<130/80) [facility] Start: 08-21-2023 Diabetic foot examination Diabetic F oot Exam [facility] Start: 07-25-2023 COVID-19 VACCINE (5 - Booster for Pfizer series) COVID-19 VACCINE (5 - Booster for Pfizer series) [facility] Immunizations Immunization Date Immunization Notes Care Provider Fa irene 03-20-2023 influenza (HD-IIV4) vaccine, age 65+ yr, high dose, quadrivalent, PF (FLUZONE HIGH-DOSE) Jesica Valdovinos PA-C Work Phone: [facility] Work Phone: 03-25-2022 zoster vaccine recombinant Jesika Olson MD Work Phone: [facility] Work Phone: 01-17-2022 influenza virus vacc ine, unspecified formulation Jesica Valdovinos PA-C Work Phone: [facility] 01-16-2022 zoster vaccine recombinant Jesika Olson MD Work Phone: [facility] Work Phone: 05-01-2021 COVID-19 vaccine, ag e 12+ yr (PFIZER-BIONTECH - PURPLE TOP) [facility] Work Phone: [facility] 03-23-2021 influenza, high-dose , quadrivalent vaccine (FLUZONE HIGH DOSE QUADRIVALENT) [facility] Work Phone: [facility] Work Phone: 08-16-2020 COVID-19 vaccine, ag e 12+ yr (PFIZER-BIONTECH - PURPLE TOP) [facility] Work Phone: [facility] Work Phone: 07-26-2020 COVID-19 vaccine, ag e 12+ yr (PFIZER-BIONTECH - PURPLE TOP) [facility] Work Phone: [facility] Work Phone: 07-11-2020 pneumococcal polysaccharide vaccine, 23 valent [facility] Work Phone: [facility] Work Phone: 02-11-2020 influenza, high-dose , quadrivalent vaccine (FLUZONE HIGH DOSE QUADRIVALENT) [facility] Work Phone: [facility] 03-24-2019 pneumococcal conjuga te vaccine, 13 valent [facility] Work Phone: [facility] Work Phone: 03-17-2019 influenza, high dose seasonal, preservative-free [facility] Work Phone: [facility] Work Phone: 01-29-2016 influenza, injectabl e, quadrivalent, contains preservative [facility] Work Phone: [facility] Work Phone: 04-17-2015 influenza, injectabl e, quadrivalent, contains preservative [facility] Work Phone: [facility] Work Phone: 04-17-2015 zoster vaccine, live [facility] Work Phone: [facility] Work Phone: 03-15-2014 influenza, seasonal, injectable [facility] Work Phone: [facility] 03-18-2013 influenza virus vacc ine, unspecified formulation [facility] Work Phone: [facility] 01-16-2011 tetanus toxoid, redu portia diphtheria toxoid, and acellular pertussis vaccine, adsorbed [facility] Work Phone: [facility] Work Phone: 12-20-2008 pneumococcal polysaccharide vaccine, 23 valent [facility] Work Phone: [facility] Work Phone: 07-21-2000 diphtheria and tetan us toxoids, adsorbed for pediatric use [facility] Work Phone: [facility] Work Phone: Payers Date Payer Category Payer Medicare UHC AARP MEDICAR E UHC AARP MEDICARE HMO [id number] 2019-Present [phone] [address] [address] [place] [address] [facility] [id number] 2019 Medicare UHC AARP MEDICAR E UHC AARP MEDICARE HMO [id number] 2019-Present [phone] [address] [address] [place] [address] O [id number] 2019 Medicare [id number] Social History Date Type Detail Facility Start: 02-28-2011 End: 04-08-2022 Tobacco smoking status NHIS Never smoked tobacco [facility] Work Phone: Start: 07-18-2021 End: 03-20-2023 Alcohol intake Current drinker of alcohol (finding) [facility] Start: 02-11-2020 End: 04-07-2022 History SDOH Alcohol Frequency 2 [facility] Start: 02-11-2020 End: 07-04-2020 History SDOH Alcohol Std Drinks 1 [facility] Start: 06-29-2019 End: 04-07-2022 History SDOH Social Connections Phone 5 [facility] Start: 06-29-2019 End: 04-07-2022 History SDOH Social Connections Get Together 4 [facility] Start: 02-04-2020 History SDOH Social Connections Denominational 98 [facility] Start: 06-29-2019 End: 04-07-2022 History SDOH Social Connections Living 3 [facility] Start: 02-04-2020 End: 04-07-2022 History SDOH Physical Activity MPS 6 [facility] Start: 06-28-2019 Education 15 [facility] Start: 1955 Sex Assigned At Female [facility] Start: 07-07-2021 End: 04-08-2022 Exposure to SARS-CoV-2 (event) Not sure [facility] Work Phone: Start: 02-28-2011 End: 04-08-2022 Tobacco use and exposure Smokeless tobacco non-user [facility] Work Phone: Start: 04-07-2022 End: 09-24-2022 History of Social function [facility] Start: 04-07-2022 End: 09-24-2022 Social connection and isolation panel [facility] Do you belong to any clubs or organizations such as muslim groups, unions, fraternal or athletic groups, or school groups? Yes [facility] Attends Club or Organization Meetings Not on file [facility] Are you now , , , , never or living with a partner? [facility] How often to you hav e a drink containing alcohol? Monthly or less [facility] How many standard dr inks containing alcohol do you have on a typical day? 1 or 2 [facility] How often do you hav e 6 or more drinks on 1 occasion? Never [facility] Do you feel stress - tense, restless, nervous, or anxious, or unable to sleep at night because your mind is troubled all the time - these days [OSQ] To some extent [facility] (I/We) worried wheth er (my/our) food would run out before (I/we) got money to buy more. Never true [facility] In the past 12 month s, was there a time when you were not able to pay the mortgage or rent on time? No [facility] Start: 11-09-2018 Gender identity Identifies as female gender (finding) [facility] Start: 11-09-2018 Sexual orientation Heterosexual (finding) [facility] Medical Equipment Procedure Code Equipment Code Equipment Original Text Equipment Identifier Dates Inject 1 Each subcutaneously once daily. Dx: Diabetes (E11.65) Start: 10-23-2020 End: 07-30-2021 Clinical Notes 12-14-2018 to 06-20-2023 Telephone Encounter - Luna Damico RN - 06/20/2023 4:18 PM ESTTelephone Encounter - Tara Dudley - 04/16/2023 7:53 AM Jesica Landa PA-C - 03/20/2023 9:13 AM ESTPatient Instructions Note Date & Type Note Facility 06-20-2023 Miscellaneous Notes Lor from [facility] Pre surgical Testing calls and is requesting TSH and EKG results to be faxed to [phone]. Faxed as requested. Luna Damico RN documented in this encounter [facility] 04-16-2023 Miscellaneous Notes Patient has been identified by name and date of : No Patient phones for refill(s): Requested Prescriptions Pending Prescriptions Disp Refills metFORMIN (GLUCOPHAGE) 500 mg tablet [Pharmacy Med Name: metFORMIN HCl 500 MG Oral Tablet] 280 tablet 4 Sig: TAKE 2 TABLETS BY MOUTH TWICE DAILY WITH MEALS Date of last office visit in primary care: 03/20/2023 Date of next office visit in primary care: 07/16/2023 Last 2 Encounter Wt Readings: Date: Wt: 03/20/2023 62.1 kg (137 lb) 02/12/2023 61.7 kg (136 lb) Previous labs/tests for medication: Diabetes: Hemoglobin A1C (%) Date Value 12/30/2022 7.0 07/22/2022 7.4 11/16/2020 7.2 05/16/2020 7.5 Hemoglobin A1C (POCT) (%) Date Value 03/23/2021 6.9 Please advise. Thank you. Tara Dudley. documented in this encounter [facility] 03-20-2023 Note HNO ID: [id number] Author: Jesica Valdovinos PA-C Service: ? Author Type: Physician Technical Training Specialist Type: Progress Notes Filed: 03/20/2023 2:04 PM Note Text: CC: Patient presents with: PreOp Call: surgery date is undetermined at this time for insertion of spinal cord stimulator trial leads Dr. kodak Mathew and dropping off paper work for patient assistance HPI Gabriela Collado is a 67 year old female who presents today for pre-op evaluation. Surgical Procedure: Implantation of medtronic spinal cord stimulator trial leads Date of Procedure: TBD Surgeon: Dr. Kodak Mathew (orthopedic exercise specialist) METS: Walk indoors, such as around the house (1.75 METs): YES Do light work around the house, such as dusting or washing dishes (2.70 METs): YES Take care of self; that is eating, dressing, bathing, using the toilet (2.75 METs): YES Walk a block or two on level ground (2.75 METs): YES Do moderate work around the house such as vacuuming, sweeping floors, or carrying in groceries (3.50 METs): YES Do yardwork, such as raking leaves, weeding,or pushing a power mower (4.50 METs): YES Climb a flight of stairs or walk up a hill (5.50 METs): YES Participate in moderate recreational activities, such as golf, bowling, dancing, doubles tennis, or throwing a baseball or football (6.00 METs): YES Participate in strenuous sport, such as swimming, singles tennis, football, basketball, or skiing (7.50 METs): YES Do heavy work around the house, such as scrubbing floors, lifting or moving heavy furniture (8.00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 Overview: Migraine OSTEOPENIA 07/01/2019 Overview: 2004 --2008 bone mass down 10% Unspecified constipation 016 Unspecified hemorrhoids without mention of compl ication 07/01/2019 Overview: Hemorrhoids documented as of this encounter (statuses as of 07/17/2022) [facility] History of Past illness Narrative* Problem Noted Date Resolved Date Stage 3 chronic kidney disease 12/14/2018 0 07/01/2019 Hypothyroidism 09/13/2014 07/01/2019 Last Assessment & Plan: Her thyroid is doing good. Routine general medical exam ination at a health care facility 06/30/2009 09/20/2015 Overview: 06/30/2009, from Dr. Davison 08/16/2010, yearly check Routine gynecological examination 06/30/2009 09/20/2015 Overview: [facility] [place] Menopause syndrome 06/30/2009 09/20/2015 Migraine, unspecified, with intractable migraine, so stated, without mention of status migrainosus 07/01/2019 Overview: Migraine OSTEOPENIA 07/01/2019 Overview: 2004 --2008 bone mass down 10% Unspecified constipation 016 Unspecified hemorrhoids without mention of compl ication 07/01/2019 Overview: Hemorrhoids documented as of this encounter (statuses as of 08/21/2022) [facility] History of Past illness Narrative* Problem Noted Date Resolved Date Stage 3 chronic kidney disease 12/14/2018 0 07/01/2019 Hypothyroidism 09/13/2014 07/01/2019 Last Assessment & Plan: Her thyroid is doing good. Routine general medical exam ination at a health care facility 06/30/2009 09/20/2015 Overview: 06/30/2009, from Dr. Davison 08/16/2010, yearly check Routine gynecological examination 06/30/2009 09/20/2015 Overview: [facility] [place] Menopause syndrome 06/30/2009 09/20/2015 Migraine, unspecified, with intractable migraine, so stated, without mention of status migrainosus 07/01/2019 Overview: Migraine OSTEOPENIA 07/01/2019 Overview: 2004 --> 2008 bone mass down 10% Unspecified constipation 016 Unspecified hemorrhoids without mention of compl ication 07/01/2019 Overview: Hemorrhoids documented as of this encounter (statuses as of 09/05/2022) [facility] History of Past illness Narrative* Problem Noted Date Resolved Date Stage 3 chronic kidney disease 12/14/2018 0 07/01/2019 Hypothyroidism 09/13/2014 07/01/2019 Last Assessment & Plan: Her thyroid is doing good. Routine general medical exam ination at a health care facility 06/30/2009 09/20/2015 Overview: 06/30/2009, from Dr. Davison 08/16/2010, yearly check Menopause syndrome 06/30/2009 09/20/2015 Migraine, unspecified, with intractable migraine, so stated, without mention of status migrainosus 07/01/2019 Overview: Migraine OSTEOPENIA 07/01/2019 Overview: 2004 --2008 bone mass down 10% Unspecified constipation 016 Unspecified hemorrhoids without mention of compl ication 07/01/2019 Overview: Hemorrhoids documented as of this encounter (statuses as of 10/02/2022) [facility] History of Past illness Narrative* Problem Noted Date Resolved Date Stage 3 chronic kidney disease 12/14/2018 0 07/01/2019 Hypothyroidism 09/13/2014 07/01/2019 Last Assessment & Plan: Her thyroid is doing good. Routine general medical exam ination at a health care facility 06/30/2009 09/20/2015 Overview: 06/30/2009, from Dr. Davison 08/16/2010, yearly check Menopause syndrome 06/30/2009 09/20/2015 Migraine, unspecified, with intractable migraine, so stated, without mention of status migrainosus 07/01/2019 Overview: Migraine OSTEOPENIA 07/01/2019 Overview: 2004 --2008 bone mass down 10% Unspecified constipation 016 Unspecified hemorrhoids without mention of compl ication 07/01/2019 Overview: Hemorrhoids documented as of this encounter (statuses as of 10/10/2022) [facility] History of Past illness Narrative* Problem Noted Date Resolved Date Stage 3 chronic kidney disease 12/14/2018 0 07/01/2019 Hypothyroidism 09/13/2014 07/01/2019 Last Assessment & Plan: Her thyroid is doing good. Routine general medical exam ination at a health care facility 06/30/2009 09/20/2015 Overview: 06/30/2009, from Dr. Davison 08/16/2010, yearly check Menopause syndrome 06/30/2009 09/20/2015 Migraine, unspecified, with intractable migraine, so stated, without mention of status migrainosus 07/01/2019 Overview: Migraine OSTEOPENIA 07/01/2019 Overview: 2004 --> 2008 bone mass down 10% Unspecified constipation 016 Unspecified hemorrhoids without mention of compl ication 07/01/2019 Overview: Hemorrhoids documented as of this encounter (statuses as of 10/25/2022) [facility] History of Past illness Narrative* Problem Noted Date Diagnosed Date Resolved Date Stage 3 chronic kidney disease 12/14/2018 07/01/2019 Hypothyroidism 09/13/2014 07/01/2019 Last Assessment & Plan: Her thyroid is doing good. Routine general medical exam ination at a health care facility 06/30/2009 09/20/2015 Overview: 06/30/2009, from Dr. Davison 08/16/2010, yearly check Menopause syndrome 06/30/2009 6 Migraine, unspecified, with intractable migraine, so stated, without mention of status migrainosus 07/01/2019 Overview: Migraine OSTEOPENIA 07/01/2019 Overview: 2004 --2008 bone mass down 10% Unspecified constipation Unspecified hemorrhoids with out mention of complication 07/01/2019 Overview: Hemorrhoids documented as of this encounter (statuses as of 12/10/2022) [facility] History of Past illness Narrative* Problem Noted Date Diagnosed Date Resolved Date Stage 3 chronic kidney disease 12/14/2018 07/01/2019 Hypothyroidism 09/13/2014 07/01/2019 Last Assessment & Plan: Her thyroid is doing good. Routine general medical exam ination at a health care facility 06/30/2009 09/20/2015 Overview: 06/30/2009, from Dr. Davison 08/16/2010, yearly check Menopause syndrome 06/30/2009 6 Migraine, unspecified, with intractable migraine, so stated, without mention of status migrainosus 07/01/2019 Overview: Migraine OSTEOPENIA 07/01/2019 Overview: 2004 bone mass down 10% Unspecified constipation Unspecified hemorrhoids with out mention of complication 07/01/2019 Overview: Hemorrhoids documented as of this encounter (statuses as of 12/27/2022) [facility] History of Past illness Narrative* Problem Noted Date Diagnosed Date Resolved Date Stage 3 chronic kidney disease 12/14/2018 07/01/2019 Hypothyroidism 09/13/2014 07/01/2019 Last Assessment & Plan: Her thyroid is doing good. [facility] 06/30/2009 09/20/2015 Overview: 06/30/2009, from Dr. Davison 08/16/2010, yearly check Menopause syndrome 06/30/2009 6 Migraine, unspecified, with intractable migraine, so stated, without mention of status migrainosus 07/01/2019 Overview: Migraine OSTEOPENIA 07/01/2019 Overview: 2004 bone mass down 10% Unspecified constipation Unspecified hemorrhoids with out mention of complication 07/01/2019 Overview: Hemorrhoids documented as of this encounter (statuses as of 01/01/2023) [facility] History of Past illness Narrative* Problem Noted Date Diagnosed Date Resolved Date Stage 3 chronic kidney disease 12/14/2018 07/01/2019 Hypothyroidism 09/13/2014 07/01/2019 Last Assessment & Plan: Her thyroid is doing good. Routine general medical exam ination at a health care facility 06/30/2009 09/20/2015 Overview: 06/30/2009, from Dr. Davison 08/16/2010, yearly check Menopause syndrome 06/30/2009 6 Migraine, unspecified, with intractable migraine, so stated, without mention of status migrainosus 07/01/2019 Overview: Migraine OSTEOPENIA 07/01/2019 Overview: 2004 bone mass down 10% Unspecified constipation Unspecified hemorrhoids with out mention of complication 07/01/2019 Overview: Hemorrhoids documented as of this encounter (statuses as of 01/08/2023) [facility] History of Past illness Narrative* Problem Noted Date Diagnosed Date Resolved Date Stage 3 chronic kidney disease 12/14/2018 07/01/2019 Hypothyroidism 09/13/2014 07/01/2019 Last Assessment & Plan: Her thyroid is doing good. Routine general medical exam [facility] 06/30/2009 09/20/2015 Overview: 06/30/2009, from Dr. Davison 08/16/2010, yearly check Menopause syndrome 06/30/2009 6 Migraine, unspecified, with intractable migraine, so stated, without mention of status migrainosus 07/01/2019 Overview: Migraine OSTEOPENIA 07/01/2019 Overview: 2004 bone mass down 10% Unspecified constipation Unspecified hemorrhoids with out mention of complication 07/01/2019 Overview: Hemorrhoids documented as of this encounter (statuses as of 02/10/2023) [facility] History of Past illness Narrative* Problem Noted Date Diagnosed Date Resolved Date Stage 3 chronic kidney disease 12/14/2018 07/01/2019 Hypothyroidism 09/13/2014 07/01/2019 Last Assessment & Plan: Her thyroid is doing good. Routine general medical exam ination at a health care facility 06/30/2009 09/20/2015 Overview: 06/30/2009, from Dr. Davison 08/16/2010, yearly check Menopause syndrome 06/30/2009 6 Migraine, unspecified, with intractable migraine, so stated, without mention of status migrainosus 07/01/2019 Overview: Migraine OSTEOPENIA 07/01/2019 Overview: 2004 --2008 bone mass down 10% Unspecified constipation Unspecified hemorrhoids with out mention of complication 07/01/2019 Overview: Hemorrhoids documented as of this encounter (statuses as of 02/12/2023) [facility] History of Past illness Narrative* Problem Noted Date Diagnosed Date Resolved Date Stage 3 chronic kidney disease 12/14/2018 07/01/2019 Hypothyroidism 09/13/2014 07/01/2019 Last Assessment & Plan: Her thyroid is doing good. Routine general medical exam ination at a health care facility 06/30/2009 09/20/2015 Overview: 06/30/2009, from Dr. Davison 08/16/2010, yearly check Menopause syndrome 06/30/2009 6 Migraine, unspecified, with intractable migraine, so stated, without mention of status migrainosus 07/01/2019 Overview: Migraine OSTEOPENIA 07/01/2019 Overview: 2004 --2008 bone mass down 10% Unspecified constipation Unspecified hemorrhoids with out mention of complication 07/01/2019 Overview: Hemorrhoids documented as of this encounter (statuses as of 03/09/2023) [facility] History of Past illness Narrative* Problem Noted Date Diagnosed Date Resolved Date Stage 3 chronic kidney disease 12/14/2018 07/01/2019 Hypothyroidism 09/13/2014 07/01/2019 Last Assessment & Plan: Her thyroid is doing good. Routine general medical exam ination at a health care facility 06/30/2009 09/20/2015 Overview: 06/30/2009, from Dr. Davison 08/16/2010, yearly check Menopause syndrome 06/30/2009 6 Migraine, unspecified, with intractable migraine, so stated, without mention of status migrainosus 07/01/2019 Overview: Migraine OSTEOPENIA 07/01/2019 Overview: 2004 --2008 bone mass down 10% Unspecified constipation Unspecified hemorrhoids with out mention of complication 07/01/2019 Overview: Hemorrhoids documented as of this encounter (statuses as of 03/20/2023) [facility] History of Past illness Narrative* Problem Noted Date Diagnosed Date Resolved Date Stage 3 chronic kidney disease 12/14/2018 07/01/2019 Hypothyroidism 09/13/2014 07/01/2019 Last Assessment & Plan: Her thyroid is doing good. Routine general medical exam ination at a health care facility 06/30/2009 09/20/2015 Overview: 06/30/2009, from Dr. Davison 08/16/2010, yearly check Menopause syndrome 06/30/2009 6 Migraine, unspecified, with intractable migraine, so stated, without mention of status migrainosus 07/01/2019 Overview: Migraine OSTEOPENIA 07/01/2019 Overview: 2004 bone mass down 10% Unspecified constipation Unspecified hemorrhoids with out mention of complication 07/01/2019 Overview: Hemorrhoids documented as of this encounter (statuses as of 04/17/2023) [facility] History of Past illness Narrative* Problem Noted Date Diagnosed Date Resolved Date Stage 3 chronic kidney disease 12/14/2018 07/01/2019 Hypothyroidism 09/13/2014 07/01/2019 Last Assessment & Plan: Her thyroid is doing good. Routine general medical exam ination at a health care facility 06/30/2009 09/20/2015 Overview: 06/30/2009, from Dr. Davison 08/16/2010, yearly check Menopause syndrome 06/30/2009 6 Migraine, unspecified, with intractable migraine, so stated, without mention of status migrainosus 07/01/2019 Overview: Migraine OSTEOPENIA 07/01/2019 Overview: 2004 --> 2008 bone mass down 10% Unspecified constipation Unspecified hemorrhoids with out mention of complication 07/01/2019 Overview: Hemorrhoids documented as of this encounter (statuses as of 06/20/2023) [facility] Diagnosis Type 2 diabetes mellitus without complication, with long-term current use of insulin (HCC)- [facility] Type 2 diabetes mellitus without complication, with long-term current use of insulin (HCC)- [facility] Diagnosis Type 2 diabetes mellitus without complication, with long-term current use of insulin (HCC) [facility] Diagnosis Uncontrolled type 2 diabetes mellitus with hypoglycemia and coma (HCC)- Primary Essential hypertension, benign Mixed hyperlipidemia [facility] Diagnosis Osteopenia of multiple sites Essential hypertension, benign Mixed hyperlipidemia [facility] Diagnosis Screening for colon cancer Special screening for malignant neoplasms, colon [facility] Diagnosis Hair loss- Primary Alopecia, unspecified Vitamin B12 deficiency Other B-complex deficiencies Iron deficiency Iron deficiency anemia, unspecified [facility] Diagnosis Anemia, unspecified type- Primary Iron deficiency Iron deficiency anemia, unspecified Hair loss Alopecia, unspecified Uncontrolled type 2 diabetes mellitus with hypoglycemia and coma (HCC) Mixed hyperlipidemia Essential hypertension, benign [facility] Diagnosis Essential hypertension, benign [facility] Diagnosis Post-surgical hypothyroidism Postsurgical hypothyroidism documented in this encounter [facility] note* Diagnosis Type 2 diabetes mellitus without complication, with long-term current use of insulin (HCC) documented in this encounter [facility] note* Diagnosis Nausea- Primary Nausea alone Tinnitus of both ears Unspecified tinnitus Impacted cerumen of left ear Impacted cerumen Headache, unspecified headache type Type 2 diabetes mellitus without complication, with long-term current use of insulin (HCC) Breast cancer screening by mammogram documented in this encounter [facility] note* Diagnosis Mixed hyperlipidemia [facility] Diagnosis Essential hypertension, benign documented in this encounter [facility] note* Diagnosis Type 2 diabetes mellitus without complication, with long-term current use of insulin (HCC)- Primary Essential hypertension, benign Post-surgical hypothyroidism Postsurgical hypothyroidism Hair loss Alopecia, unspecified Microcytosis Other abnormality of red blood cells Chronic midline low back pain without sciatica documented in this encounter [facility] note* Diagnosis Osteopenia of multiple sites documented in this encounter [facility] note* Diagnosis Microcytic anemia- Primary Iron deficiency anemia, unspecified Dysuria Acute cystitis with hematuria Acute cystitis documented in this encounter [facility] note* Diagnosis Encounter for screening for malignant neoplasm of colon- Primary Special screening for malignant neoplasms, colon Screening for colon cancer Special screening for malignant neoplasms, colon documented in this encounter [facility] note* Diagnosis 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 Degeneration, intervertebral disc, lumbar Degeneration of lumbar or lumbosacral intervertebral disc Other spondylosis, lumbar region Preoperative clearance Preoperative examination, unspecified Telogen effluvium Type 2 diabetes mellitus without complication, with long-term current use of insulin (HCC) Encounter for immunization Need for other specified prophylactic vaccination against single bacterial disease Intermittent palpitations documented in this encounter [facility] for referral (narrative)* Outpatient Procedure (Routine) - Pending Review Specialty Diagnoses / Procedures Referred By Shaggy cisneros Referred To Contact [facility] Diagnoses Screening for colon cancer Procedures COLONOSCOPY SCREENING COLONOSCOPY FLX DX W/COLLJ SPEC WHEN PFJesika Hatfield MD [address] [place] [address] [facility] [address] [place] [id number] Referral ID Status Reason Start Date Expiration Date Visits Requested Visits Authorized [id number] Pending Review Auto-Generat ed Referral 03/13/2022 03/13/2023 1 1 [facility] for referral (narrative)* Diagnostic Procedure Only (Routine) - Pending Review Specialty Diagnoses / Procedures Referred By Shaggy cisneros Referred To Contact [facility] Diagnoses Breast cancer screening by mammogram Procedures DELONTE SCREENING W ALEXI SCREENING DIGITAL BREAST TOMOSYNTHESIS BI SCREENING MAMMOGRAPHY BI 2-VIEW BREAST INC Jesika Fair MD [address] [place] [address] [facility] [address] [place] [id number] Referral ID Status Reason Start Date Expiration Date Visits Requested Visits Authorized [id number] Pending Review Auto-Generat ed Referral 08/20/2022 09/19/2023 1 1 T [facility] for referral (narrative)* Outpatient Procedure (Routine) - Closed Specialty Diagnoses / Procedures Referred By Shaggy cisneros Referred To Contact [facility] Diagnoses Screening for colon cancer Procedures COLONOSCOPY SCREENING COLONOSCOPY FLX DX W/COLLJ SPEC WHEN Jesika Anderson MD [address] [place] [address] [facility] [address] [place] [phone] Referral ID Status Reason Start Date Expiration Date V isits Requested Visits Authorized [id number] Closed Auto-Generate d Referral 03/13/2022 03/13/2023 1 1 T [facility] for referral (narrative)* Outpatient Procedure (Routine) - Pending Review Specialty Diagnoses / Procedures Referred By Shaggy cisneros [facility] Diagnoses Preoperative clearance Procedures ECG COMPLETE ECG ROUTINE ECG W/LEAST 12 LDS W/I&R Jesica Valdovinos PA-C [address] [place] [address] [facility] [address] [place] [address] Referral ID Status Reason Start Date Expiration Date Visits Requested Visits Authorized [id number] Pending Review Auto-Generat ed Referral 3 03/19/2024 1 1 [facility] Advance Directives No Advanced Directives Records FoundDocuments on File Type Date Recorded Patient Director Of Convention Services Expl anation Advance Directive(s) 10/24/2015 11:28 AM Documents on File Type Date Recorded Patient Director Of Convention Services Expl anation Advance Directive(s) 10/24/2015 11:28 AM Documents on File Type Date Recorded Patient Director Of Convention Services Expl anation Advance Directive(s) 10/24/2015 11:28 AM A DVANCE DIRECTIVE Documents on File Type Date Recorded Patient Director Of Convention Services Expl anation Advance Directive(s) 10/24/2015 11:28 AM A DVANCE DIRECTIVE Medications Administered Section Inactive Administered Medications - up to 3 most recent administrations Medication Order MAR Action Action Date Dose Rate Site fentaNYL 50 mcg/mL 25-100 mcg injection (SUBLIMAZE) 25-100 mcg, INTRAVENOUS, DIRECTED, Starting on Prisca 09/19/22 at 0900, Until Prisca 09/19/22 at 1259, DOSING DIRECTED BY PHYSICIAN FOR PROCEDURAL SEDATION ONLY, Intraprocedure Given 09/19/2022 8:45 AM EDT 50 mcg Summary Purpose Family History No Family History Records Found Additional Source Comments Source Comments (unrecognize d section and content) In the event this informatio n is protected by the Federal Confidentiality of Alcohol and Drug Abuse Patient Records regulations: The Federal rules restrict any use of the information to criminally investigate or prosecute any alcohol or drug abuse patient.[facility] the event this information is protected by the Federal Confidentiality of Alcohol and Drug Abuse Patient Records regulations: The Federal rules restrict any use of the information to criminally investigate or prosecute any alcohol or drug abuse patient.[facility] the event this information is protected by the Federal Confidentiality of Alcohol and Drug Abuse Patient Records regulations: The Federal rules restrict any use of the information to criminally investigate or prosecute any alcohol or drug abuse patient.[facility] the event this information is protected by the Federal Confidentiality of Alcohol and Drug Abuse Patient Records regulations: The Federal rules restrict any use of the information to criminally investigate or prosecute any alcohol or drug abuse patient.[facility]In the event this information is protected by the Federal Confidentiality of Alcohol and Drug Abuse Patient Records regulations: The Federal rules restrict any use of the information to criminally investigate or prosecute any alcohol or drug abuse patient.[facility] the event this information is protected by the Federal Confidentiality of Alcohol and Drug Abuse Patient Records regulations: The Federal rules restrict any use of the information to criminally investigate or prosecute any alcohol or drug abuse patient.[facility] the event this information is protected by the Federal Confidentiality of Alcohol and Drug Abuse Patient Records regulations: The Federal rules restrict any use of the information to criminally investigate or prosecute any alcohol or drug abuse patient.[facility] the event this information is protected by the Federal Confidentiality of Alcohol and Drug Abuse Patient Records regulations: The Federal rules restrict any use of the information to criminally investigate or prosecute any alcohol or drug abuse patient.[facility] the event this information is protected by the Federal Confidentiality of Alcohol and Drug Abuse Patient Records regulations: The Federal rules restrict any use of the information to criminally investigate or prosecute any alcohol or drug abuse patient.[facility] HospitalIn the event this information is protected by the Federal Confidentiality of Alcohol and Drug Abuse Patient Records regulations: The Federal rules restrict any use of the information to criminally investigate or prosecute any alcohol or drug abuse patient.[facility] HospitalIn the event this information is protected by the Federal Confidentiality of Alcohol and Drug Abuse Patient Records regulations: The Federal rules restrict any use of the information to criminally investigate or prosecute any alcohol or drug abuse patient.[facility] HospitalIn the event this information is protected by the Federal Confidentiality of Alcohol and Drug Abuse Patient Records regulations: The Federal rules restrict any use of the information to criminally investigate or prosecute any alcohol or drug abuse patient.[facility] HospitalIn the event this information is protected by the Federal Confidentiality of Alcohol and Drug Abuse Patient Records regulations: The Federal rules restrict any use of the information to criminally investigate or prosecute any alcohol or drug abuse patient.[facility] the event this information is protected by the Federal Confidentiality of Alcohol and Drug Abuse Patient Records regulations: The Federal rules restrict any use of the information to criminally investigate or prosecute any alcohol or drug abuse patient.[facility]In the event this information is protected by the Federal Confidentiality of Alcohol and Drug Abuse Patient Records regulations: The Federal rules restrict any use of the information to criminally investigate or prosecute any alcohol or drug abuse patient.[facility] HospitalIn the event this information is protected by the Federal Confidentiality of Alcohol and Drug Abuse Patient Records regulations: The Federal rules restrict any use of the information to criminally investigate or prosecute any alcohol or drug abuse patient.[facility] HospitalIn the event this information is protected by the Federal Confidentiality of Alcohol and Drug Abuse Patient Records regulations: The Federal rules restrict any use of the information to criminally investigate or prosecute any alcohol or drug abuse patient.[facility] HospitalIn the event this information is protected by the Federal Confidentiality of Alcohol and Drug Abuse Patient Records regulations: The Federal rules restrict any use of the information to criminally investigate or prosecute any alcohol or drug abuse patient.[facility] HospitalIn the event this information is protected by the Federal Confidentiality of Alcohol and Drug Abuse Patient Records regulations: The Federal rules restrict any use of the information to criminally investigate or prosecute any alcohol or drug abuse patient.[facility] HospitalIn the event this information is protected by the Federal Confidentiality of Alcohol and Drug Abuse Patient Records regulations: The Federal rules restrict any use of the information to criminally investigate or prosecute any alcohol or drug abuse patient.[facility] HospitalIn the event this information is protected by the Federal Confidentiality of Alcohol and Drug Abuse Patient Records regulations: The Federal rules restrict any use of the information to criminally investigate or prosecute any alcohol or drug abuse patient.[facility] the event this information is protected by the Federal Confidentiality of Alcohol and Drug Abuse Patient Records regulations: The Federal rules restrict any use of the information to criminally investigate or prosecute any alcohol or drug abuse patient.[facility] Hospital[facility] the event this information is protected by the Federal Confidentiality of Alcohol and Drug Abuse Patient Records regulations: The Federal rules restrict any use of the information to criminally investigate or prosecute any alcohol or drug abuse patient.[facility] HospitalIn the event this information is protected by the Federal Confidentiality of Alcohol and Drug Abuse Patient Records regulations: The Federal rules restrict any use of the information to criminally investigate or prosecute any alcohol or drug abuse patient.[facility] HospitalIn the event this information is protected by the Federal Confidentiality of Alcohol and Drug Abuse Patient Records regulations: The Federal rules restrict any use of the information to criminally investigate or prosecute any alcohol or drug abuse patient.[facility] HospitalIn the event this information is protected by the Federal Confidentiality of Alcohol and Drug Abuse Patient Records regulations: The Federal rules restrict any use of the information to criminally investigate or prosecute any alcohol or drug abuse patient.[facility] HospitalIn the event this information is protected by the Federal Confidentiality of Alcohol and Drug Abuse Patient Records regulations: The Federal rules restrict any use of the information to criminally investigate or prosecute any alcohol or drug abuse patient.[facility] HospitalIn the event this information is protected by the Federal Confidentiality of Alcohol and Drug Abuse Patient Records regulations: The Federal rules restrict any use of the information to criminally investigate or prosecute any alcohol or drug abuse patient.[facility] HospitalIn the event this information is protected by the Federal Confidentiality of Alcohol and Drug Abuse Patient Records regulations: The Federal rules restrict any use of the information to criminally investigate or prosecute any alcohol or drug abuse patient.[facility] HospitalIn the event this information is protected by the Federal Confidentiality of Alcohol and Drug Abuse Patient Records regulations: The Federal rules restrict any use of the information to criminally investigate or prosecute any alcohol or drug abuse patient.[facility] HospitalIn the event this information is protected by the Federal Confidentiality of Alcohol and Drug Abuse Patient Records regulations: The Federal rules restrict any use of the information to criminally investigate or prosecute any alcohol or drug abuse patient.[facility] HospitalIn the event this information is protected by the Federal Confidentiality of Alcohol and Drug Abuse Patient Records regulations: The Federal rules restrict any use of the information to criminally investigate or prosecute any alcohol or drug abuse patient.[facility] HospitalIn the event this information is protected by the Federal Confidentiality of Alcohol and Drug Abuse Patient Records regulations: The Federal rules restrict any use of the information to criminally investigate or prosecute any alcohol or drug abuse patient.[facility] HospitalIn the event this information is protected by the Federal Confidentiality of Alcohol and Drug Abuse Patient Records regulations: The Federal rules restrict any use of the information to criminally investigate or prosecute any alcohol or drug abuse patient.[facility] Reason for Visit (unrecogniz ed section and content) Specialty Diagnoses / Procedures Referred By Shaggy cisneros Referred To Contact Pharmacy / PHARMACY Diagnoses DM follow up Procedures EST PHARMACY Self Audrey Nguyen [facility] [address] [place] [address] Referral ID Status Reason Start Date Expiration Date V isits Requested Visits Authorized [id number] Closed Financial Clearance Required - OON Payor Patient Cleared INN/SMCP Payor Auth Obtained 07/30/2021 05/04/2022 1 1 Reason Comments Follow Up Forms Reason Comments Orders Appointment Reason Comments Established Patient 4 molnth follow up-D M Specialty Diagnoses / Procedures Referred By Shaggy cisneros Referred To Contact Internal Medicine / INTERNAL MEDICINE Diagnoses 4 month follow up Procedures OFFICE/OUTPATIENT ESTABLISHED MOD MDM 30-39 MIN 4C EST Jesika Olson MD [address] [place] [address] Jesika Olson MD [address] [place] [address] Referral ID Status Reason Start Date Expiration Date Visits Re quested Visits Authorized [id number] Closed 11/16/2021 05/04/2022 1 1 Reason Onset Date Comments Refill Request 02/13/2022 Reason Onset Date Comments Population Health Navigation Outreach 03/14/2022 [facility] Reason Comments Recheck hair loss x 4 months Reason Comments Results Reason Onset Date Comments Refill Request 04/24/2022 Reason Comments Refill Request Reason Comments Faxed to Dr. Moise/podiatry Reason Comments Medication Problem Reason Comments Follow Up Reason Comments [facility] Reason Comments imaging-mammogram Reason Comments Patient Question Reason Comments [facility] Forms Reason Onset Date Comments Refill Request Refill Request 12/09/2022 Reason Comments F/U Diabetes 3 Month 3 month follow up d iabetes,review labs, worried about thyroid Reason Comments 6-week follow-up, urinary symptoms Specialty Diagnoses / Procedures Referred By Shaggy cisneros Referred To Contact [facility] Diagnoses Encounter for screening for malignant neoplasm of colon Procedures COLONOSCOPY FLX W/REMOVAL OF FOREIGN BODY(S) [facility] [address] [place] [address] Referral ID Status Reason Start Date Expiration Date Visits Re quested Visits Authorized [id number] 1 1 Reason Comments PreOp Call surgery date is unde termined at this time for insertion of spinal cord stimulator trial leads Dr. kodak Mathew and dropping off paper work for patient assistance Reason Comments Faxed Results TSH and EKG Care Teams (unrecognized sec tion and content) Edge [facility]aster Relationship Specialty Start Date End Date Jesika Olson MD [address] [place] [address] PCP - General Internal Medicine 12/15/18 Tucker Andrews [address] [place] [address] Physician Optometry 09/20/19 Audrey Nguyen, [facility] [address] [place], [place] [id number] Pharmacist Pharmacy 02/21/20 [facility] Relationship Specialty Start Date End Date Jesika Olson MD [address] [place] [address] PCP - General Internal Medicine 12/15/18 Tucker Andrews [address] [facility] [place] [address] Physician Optometry 09/20/19 Audrey Nguyen, [facility] [address] [place] [address] Pharmacist Pharmacy 02/21/20 [facility] Relationship Specialty Start Date End Date Jesika Olson MD [address] [place] [address] PCP - General Internal Medicine 12/15/18 Tucker Andrews [address] [place] [address] Physician Optometry 09/20/19 Audrey Nguyen, [facility] [address] [place] [address] Pharmacist Pharmacy 02/21/20 Edge Baster Relationship Specialty Start Date End Date Jesika Olson MD [address] [place] [address] PCP - General Internal Medicine 12/15/18 Tucker Andrews [address] [place] [address] Physician Optometry 09/20/19 Audrey Nguyen, [facility] [address] [place] [address] Pharmacist Pharmacy 02/21/20 Edge [facility] Relationship Specialty Start Date End Date Jesika Olson MD [address] [place] [address] PCP - General Internal Medicine 12/15/18 Tucker Andrews [address] [place] [address] Physician Optometry 09/20/19 Audrey Nguyen, [facility] [address] [place] [address] Pharmacist Pharmacy 02/21/20 Edge Baster Relationship Specialty Start Date End Date Jesika Olson MD [address] [place] [address] PCP - General Internal Medicine 12/15/18 Tucker Andrews [address] [place] [address] Physician Optometry 09/20/19 [facility] [address] [place] [address] Pharmacist Pharmacy 02/21/20 Edge Baster Relationship Specialty Start Date End Date Jesika Olson MD [address] [place] [address] PCP - General Internal Medicine 12/15/18 Tucker Andrews [address] [place] [address] Physician Optometry 09/20/19 [facility] [address] [place] [address] Pharmacist Pharmacy 02/21/20 Edge Baster Relationship Specialty Start Date End Date Jesika Olson MD [address] [facility] [place] [address] PCP - General Internal Medicine 12/15/18 Tucker Andrews [address] [place] [address] Physician Optometry 09/20/19 Audrey Nguyen, [facility] [address] [place] [address] Pharmacist Pharmacy 02/21/20 Edge Baster Relationship Specialty Start Date End Date Jesika Olson MD [address] [place] [address] PCP - General Internal Medicine 12/15/18 Tucker Andrews [address] [place] [address] Physician Optometry 09/20/19 Audrey Nguyen, [facility] [address] [place] [address] Pharmacist Pharmacy 02/21/20 Edge Baster Relationship Specialty Start Date End Date Jesika Olson MD [address] [place] [address] PCP - General Internal Medicine 12/15/18 Tucker Andrews [address] [place] [address] Physician Optometry 09/20/19 Audrey Nguyen, [facility] [address] [place] [address] Pharmacist Pharmacy 02/21/20 Edge Baster Relationship Specialty Start Date End Date Jesika Olson MD [address] [place] [address] PCP - General Internal Medicine 12/15/18 Tucker Andrews [address] [place] [address] Physician Optometry 09/20/19 Audrey Nguyen, [facility] [address] [place] [address] Pharmacist Pharmacy 02/21/20 Edge Baster Relationship Specialty Start Date End Date Jesika Olson MD [address] [place] [address] PCP - General Internal Medicine 12/15/18 Tucker Andrews [address] [facility] [address] Physician Optometry 09/20/19 Audrey Nguyen, [facility] [address] [place] [address] Pharmacist Pharmacy 02/21/20 Edge Baster Relationship Specialty Start Date End Date Jesika Olson MD [address] [facility] [place] [address] PCP - General Internal Medicine 12/15/18 Tucker Andrews [address] [place] [address] Physician Optometry 09/20/19 Audrey Nguyen, [facility] [address] [facility] [place] [address] Pharmacist Pharmacy 02/21/20 Edge Baster Relationship Specialty Start Date End Date Jesika Olson MD [address] [facility] [place] [address] PCP - General Internal Medicine 12/15/18 Tucker Andrews [address] [place] [place] [address] Physician Optometry 09/20/19 Audrey Nguyen, [facility] [address] [facility] [place] [address] Pharmacist Pharmacy 02/21/20 Edge Baster Relationship Specialty Start Date End Date Jesika Olson MD [address] [facility] [place] [address] PCP - General Internal Medicine 12/15/18 Tucker Andrews [address] [place] [address] Physician Optometry 09/20/19 Audrey Nguyen, [facility] [address] [place] [address] Pharmacist Pharmacy 02/21/20 Edge Baster Relationship Specialty Start Date End Date Jesika Olson MD [address] [place] [address] PCP - General Internal Medicine 12/15/18 Tucker Andrews [address] [place] [address] Physician Optometry 09/20/19 Audrey Nguyen, [facility] [address] [place] [address] Pharmacist Pharmacy 02/21/20 Edge Baster Relationship Specialty Start Date End Date Jesika Olson MD [address] [place] [address] PCP - General Internal Medicine 12/15/18 Tucker Andrews [address] [place] [address] Physician Optometry 09/20/19 Audrey Nguyen, [facility] [address] [place] [address] Pharmacist Pharmacy 02/21/20 Edge Baster Relationship Specialty Start Date End Date Jesika Olson MD [address] [place] [address] PCP - General Internal Medicine 12/15/18 Tucker Andrews [address] [place] [address] Physician Optometry 09/20/19 Audrey Nguyen, [facility] [address] [place] [address] Pharmacist Pharmacy 02/21/20 Edge Baster Relationship Specialty Start Date End Date Jesika Olson MD [address] [place] [address] PCP - General Internal Medicine 12/15/18 Tuckre Andrews [address] [place] [address] Physician Optometry 09/20/19 Audrey Nguyen, [facility] [address] [place] [address] Pharmacist Pharmacy 02/21/20 Edge Baster Relationship Specialty Start Date End Date Jesika Olson MD [address] [place] [address] PCP - General Internal Medicine 12/15/18 Tucker Andrews [address] [place] [address] Physician Optometry 09/20/19 Audrey Nguyen, [facility] [address] [place] [address] Pharmacist Pharmacy 02/21/20 Edge Baster Relationship Specialty Start Date End Date Jesika Olson MD [address] [place] [address] PCP - General Internal Medicine 12/15/18 Tucker nAdrews [address] [place] [address] Physician Optometry 09/20/19 Audrey Nguyen, [facility] [address] [place] [address] Pharmacist Pharmacy 02/21/20 Edge Baster Relationship Specialty Start Date End Date Jesika Olson MD [address] [place] [address] PCP - General Internal Medicine 12/15/18 Tucker Andrews [address] [place] [address] Physician Optometry 09/20/19 Audrey Nguyen, [facility] [address] [place] [address] Pharmacist Pharmacy 02/21/20 Edge Baster Relationship Specialty Start Date End Date Jesika Olson MD [address] [place] [address] PCP - General Internal Medicine 12/15/18 Tucker Andrews [address] [place] [address] Physician Optometry 09/20/19 Audrey Nguyen, [facility] [address] [place] [address] Pharmacist Pharmacy 02/21/20 INFORMATION SOURCE (unrecogn ized section and content) FOR RECORDS PERTAINING TO PATIENTS WHO ARE OR HAVE BEEN ENROLLED IN A CHEMICAL DEPENDENCY/SUBSTANCEABUSE PROGRAM, SOME INFORMATION MAY BE OMITTED. This clinical summary was aggregated from multiple sources. Caution should be exercised in using it in the provision of clinical care. This summary normalizes information from multiple sources, and as a consequence, information in this document may materially change the coding, format and clinical context of patient data. In addition, data may be omitted in some cases. CLINICAL DECISIONS SHOULD BE BASED ON THE PRIMARY CLINICAL RECORDS. [employer] [facility]. provides no warranty or guarantee of the accuracy or completeness of information in this document.
--- OUTSIDE RECORDS SUMMARY | 2023-07-03 07:04 | XMS RPT_ITS | CCD ---
Author Name Unknown Address [address] [place] [address] Organization [facility] Care Team Providers Care Back Tender Paper Machine Name Role Phone Wesley JONES, Jesika Primary [...] Attending Unavailable DENBOW, JESICA Referring Unavailable GANTA, JESIKA Primary Care Unavailable GANTA, JESIKA Primary Care Unavailable DENBOW, JESICA Attending Unavailable GANTA, JESIKA Primary Care Unavailable GANTA, JESIKA Referring Unavailable GANTA, JESIKA Primary Care Unavailable Allergies Allergy Classification Reported Allergen(s) Allergy Type Date of Onset Reaction(s) Facility (14 sources) diphenhydrAMINE; Translations: [DIPHENHYDRAMINE ] Drug Allergy 09-19-2022 Other: See Comments [facility] Medications Current Medications Medication Drug Class(es) [...] Onset: 07-24-2022 Episodic Other aftercare (1 source) director long term care (current) use of insulin; Translations: [Type 2 [...] 165.1 cm Jesica Valdovinos PA-C Work Phone: [facility] 03-20-2023 09:12-0500 Body temperature 97.5 [degF] Jesica Valdovinos PA-C Work Phone: [facility] 03-20-2023 09:12-0500 Body weight 62.14 kg Jesica Denbow PA-C Work Phone: [facility] 03-20-2023 09:12-0500 Diastolic blood pressure 60 mm[Hg] Jesica Denbow PA-C Work Phone: [facility] 03-20-2023 09:12-0500 Heart rate 68 /min Jesica Denbow PA-C Work Phone: [facility] 03-20-2023 09:12-0500 Respiratory rate 12 /min Jesica Denbow PA-C Work Phone: [facility] 03-20-2023 09:12-0500 SaO2% (BldA) [Mass fraction] 96 % Jesica Denbow PA-C Work Phone: [facility] 03-20-2023 09:12-0500 Systolic blood pressure 126 mm[Hg] Jesica Denbow PA-C Work Phone: [facility] 02-12-2023 12:31-0400 Body height 165.1 cm Jesica Denbow PA-C Work Phone: [facility] 02-12-2023 12:31-0400 Body temperature 98.4 [degF] Jesica Denbow PA-C Work Phone: [facility] 02-12-2023 12:31-0400 Body weight 61.69 kg Jesica Denbow PA-C Work Phone: [facility] 02-12-2023 12:31-0400 Diastolic blood pressure 70 mm[Hg] Jesica Denbow PA-C Work Phone: [facility] 02-12-2023 12:31-0400 Heart rate 82 /min Jesica Denbow PA-C Work Phone: [facility] 02-12-2023 12:31-0400 Respiratory rate 12 /min Jesica Denbow PA-C Work Phone: [facility] 02-12-2023 12:31-0400 SaO2% (BldA) [Mass fraction] 98 % Jesica Denbow PA-C Work Phone: [facility] 02-12-2023 12:31-0400 Systolic blood pressure 126 mm[Hg] Jesica Denbow PA-C Work Phone: [facility] 12-31-2022 13:54-0400 Body height 165.1 cm Jesica Denbow PA-C Work Phone: [facility] 12-31-2022 13:54-0400 Body weight 61.24 kg Jesica Denbow PA-C Work Phone: [facility] 12-31-2022 13:54-0400 Diastolic blood pressure 70 mm[Hg] Jesica Denbow PA-C Work Phone: [facility] 12-31-2022 13:54-0400 Heart rate 87 /min Jesica Denbow PA-C Work Phone: [facility] 12-31-2022 13:54-0400 Respiratory rate 12 /min Jesica Denbow PA-C Work Phone: [facility] 12-31-2022 13:54-0400 SaO2% (BldA) [Mass fraction] 98 % Jesica Denbow PA-C Work Phone: [facility] 12-31-2022 13:54-0400 Systolic blood pressure 130 mm[Hg] Jesica Denbow PA-C Work Phone: [facility] 09-19-2022 09:55-0400 Heart rate 66 /min Kendall Javier MD Work Phone: [facility] 09-19-2022 09:55-0400 SaO2% (BldA) [Mass fraction] 98 % Kendall Javier MD Work Phone: [facility] 09-19-2022 09:45-0400 Diastolic blood pressure 72 mm[Hg] Kendall Javier MD Work Phone: [facility] 09-19-2022 09:45-0400 Respiratory rate 16 /min Kendall Javier MD Work Phone: [facility] 09-19-2022 09:45-0400 Systolic blood pressure 119 mm[Hg] Kendall Javier MD Work Phone: [facility] 09-19-2022 08:11-0400 Body temperature 97.5 [degF] Kendall Javier MD Work Phone: [facility] 09-19-2022 08:11-0400 Body weight 62.1 kg Kendall Javier MD Work Phone: [facility] 08-20-2022 13:35-0400 Body height 165.1 cm Jesika Olson MD Work Phone: [facility] 08-20-2022 13:35-0400 Body temperature 98.29 [degF] Jesika Olson MD Work Phone: [facility] 08-20-2022 13:35-0400 Body weight 62.14 kg Jesika Olson MD Work Phone: [facility] 08-20-2022 13:35-0400 Diastolic blood pressure 56 mm[Hg] Jesika Olson MD Work Phone: [facility] 08-20-2022 13:35-0400 Heart rate 76 /min Jesika Olson MD Work Phone: [facility] 08-20-2022 13:35-0400 Respiratory rate 12 /min Jesika Olson MD Work Phone: [facility] 08-20-2022 13:35-0400 SaO2% (BldA) [Mass fraction] 98 % Jesika Olson MD Work Phone: [facility] 08-20-2022 13:35-0400 Systolic blood pressure 114 mm[Hg] Jesika lOson MD Work Phone: [facility] 04-08-2022 08:56-0500 Body height 165.1 cm Jesika Olson MD Work Phone: [facility] 04-08-2022 08:56-0500 Body temperature 98.01 [degF] Jesika Olson MD Work Phone: [facility] 04-08-2022 08:56-0500 Body weight 63.05 kg Jesika Olson MD Work Phone: [facility] 04-08-2022 08:56-0500 Diastolic blood pressure 72 mm[Hg] Jesika Olson MD Work Phone: [facility] 04-08-2022 08:56-0500 Heart rate 92 /min Jesika Olson MD Work Phone: [facility] 04-08-2022 08:56-0500 Respiratory rate 12 /min Jesika Olson MD Work Phone: [facility] 04-08-2022 08:56-0500 SaO2% (BldA) [Mass fraction] 99 % Jesika Olson MD Work Phone: [facility] 04-08-2022 08:56-0500 Systolic blood pressure 130 mm[Hg] Jesika Olson MD Work Phone: [facility] 11-16-2021 13:29-0400 Body height 165.1 cm Jesika Olson MD Work Phone: [facility] 11-16-2021 13:29-0400 Body temperature 98.6 [degF] Jesika Olson MD Work Phone: [facility] 11-16-2021 13:29-0400 Body weight 63.05 kg Jesika Olson MD Work Phone: [facility] 11-16-2021 13:29-0400 Diastolic blood pressure 56 mm[Hg] Jesika Olson MD Work Phone: [facility] 11-16-2021 13:29-0400 Heart rate 78 /min Jesika Olson MD Work Phone: [facility] 11-16-2021 13:29-0400 Respiratory rate 12 /min Jesika Olson MD Work Phone: [facility] 11-16-2021 13:29-0400 SaO2% (BldA) [Mass fraction] 98 % Jesika Olson MD Work Phone: [facility] 11-16-2021 13:29-0400 Systolic blood pressure 114 mm[Hg] Jesika Olson MD Work Phone: [facility] Encounters Encounter Date Encounter Type Care Provider Facility Start: 06-20-2023 Telephone encounter Jesika springer MD Work Phone: [facility] Procedures Date Procedure Procedure Detail Performing Clinician [...] Work Phone: Start: 09-20-2020 Mammography Audrey Nguyen [facility] Work Phone: Start: 07-04-2020 Adult depression scr eening assessment Audrey Nguyen [facility] Work Phone: Start: 07-21-2018 Colonoscopy Audrey Nguyen [facility] Work Phone: Plan of Treatment Date Care Activity Detail Author Start: 09-19-2025 Colonoscopy COLONOSCOPY [facility] Start: 09-19-2025 COLORECTAL CANCER SCREENING COLORECTAL CANCER SCREENING [facility] Start: 09-19-2025 Screening for malign ant neoplasm of colon [facility] Start: 03-20-2024 Annual PCP Team Injection Molding Machine Offbearer lauri Disease Visit Annual PCP Team Chronic Disease Visit [facility] Start: 03-20-2024 BP Controlled (<130/80) BP Controlle d (<130/80) [facility] Start: 02-14-2024 Fecal Occult Blood Fecal Occult Bloo d [facility] Start: 02-14-2024 Screening for malign ant neoplasm of colon Fecal Occult Blood [facility] Start: 02-13-2024 Annual PCP Team Injection Molding Machine Offbearer lauri Disease Visit Annual PCP Team Chronic Disease Visit [facility] Start: 02-13-2024 BP Controlled (<130/80) BP Controlle d (<130/80) [facility] Start: 01-01-2024 ANNUAL PCP TEAM HELP DESK MANAGER LAURI DISEASE VISIT ANNUAL PCP TEAM CHRONIC DISEASE VISIT [facility] Start: 12-31-2023 Hepatitis B surface antibody level LDL CHOLESTEROL [facility] Start: 11-20-2023 Hemoglobin A1c measurement HbA1C [facility] Start: 10-09-2023 Glaucoma screening Dilated Retinal E xam [facility] Start: 10-09-2023 Hepatitis C antibody , confirmatory test DILATED RETINAL EXAM [facility] Start: 09-27-2023 Hepatitis B screening URINE AL BUMIN:CREATININE RATIO [facility] Start: 09-25-2023 ANNUAL PCP TEAM HELP DESK MANAGER LAURI DISEASE VISIT ANNUAL PCP TEAM CHRONIC DISEASE VISIT [facility] Start: 09-25-2023 BP CONTROLLED (<130/80) BP CONTROLLE D (<130/80) [facility] Start: 08-21-2023 3 comp foot exam completed DIABETIC FOOT EXAM [facility] Start: 08-21-2023 ANNUAL PCP TEAM ODELL LAURI DISEASE VISIT ANNUAL PCP TEAM CHRONIC DISEASE VISIT [facility] Start: 08-21-2023 BP CONTROLLED (<130/80) BP CONTROLLE D (<130/80) [facility] Start: 08-21-2023 Diabetic foot examination Diabetic F oot Exam [facility] Start: 07-25-2023 COVID-19 VACCINE (5 - Booster for Pfizer series) COVID-19 VACCINE (5 - Booster for Pfizer series) [facility] Immunizations Immunization Date Immunization Notes Care Provider Fa irene 03-20-2023 influenza (HD-IIV4) vaccine, age 65+ yr, high dose, quadrivalent, PF (FLUZONE HIGH-DOSE) Jesica Valdovinos PA-C Work Phone: [facility] Work Phone: 03-25-2022 zoster vaccine recombinant Jesika Olson MD Work Phone: [facility] Work Phone: 01-17-2022 influenza virus vacc ine, unspecified formulation Jesica Valdovinos PA-C Work Phone: [facility] 01-16-2022 zoster vaccine recombinant Jesika Olson MD Work Phone: [facility] Work Phone: 05-01-2021 COVID-19 vaccine, ag e 12+ yr (PFIZER-BIONTECH - PURPLE TOP) [facility] Work Phone: [facility] 03-23-2021 influenza, high-dose , quadrivalent vaccine (FLUZONE HIGH DOSE QUADRIVALENT) [facility] Work Phone: [facility] Work Phone: 08-16-2020 COVID-19 vaccine, ag e 12+ yr (PFIZER-BIONTECH - PURPLE TOP) [facility] Work Phone: [facility] Work Phone: 07-26-2020 COVID-19 vaccine, ag e 12+ yr (PFIZER-BIONTECH - PURPLE TOP) [facility] Work Phone: [facility] Work Phone: 07-11-2020 pneumococcal polysaccharide vaccine, 23 valent [facility] Work Phone: [facility] Work Phone: 02-11-2020 influenza, high-dose , quadrivalent vaccine (FLUZONE HIGH DOSE QUADRIVALENT) [facility] Work Phone: [facility] 03-24-2019 pneumococcal conjuga te vaccine, 13 valent [facility] Work Phone: [facility] Work Phone: 03-17-2019 influenza, high dose seasonal, preservative-free [facility] Work Phone: [facility] Work Phone: 01-29-2016 influenza, injectabl e, quadrivalent, contains preservative [facility] Work Phone: [facility] Work Phone: 04-17-2015 influenza, injectabl e, quadrivalent, [facility]ative [facility] Work Phone: [facility] Work Phone: 04-17-2015 zoster vaccine, live [facility] Work Phone: [facility] Work Phone: 03-15-2014 influenza, seasonal, injectable [facility] Work Phone: [facility] 03-18-2013 influenza virus vacc ine, unspecified formulation [facility] Work Phone: [facility] 01-16-2011 tetanus toxoid, redu portia diphtheria toxoid, and acellular pertussis vaccine, adsorbed [facility] Work Phone: [facility] Work Phone: 12-20-2008 pneumococcal polysaccharide vaccine, 23 valent [facility] Work Phone: [facility] Work Phone: 07-21-2000 diphtheria and tetan us toxoids, adsorbed for pediatric use [facility] Work Phone: [facility] Work Phone: Payers Date Payer Category Payer Medicare UHC AARP MEDICAR E UHC AARP MEDICARE HMO [id number] 2019-Present [phone] [address] [address] [place] [address] [facility] [id number] 2019 Medicare UHC AARP MEDICAR E UHC AARP MEDICARE HMO [id number] 2019-Present [phone] [address] [address] [place] [address] O [id number] 2019 Medicare [id number] Social History Date Type Detail Facility Start: 02-28-2011 End: 04-08-2022 Tobacco smoking status NHIS Never smoked tobacco [facility] Work Phone: Start: 07-18-2021 End: 03-20-2023 Alcohol intake Current drinker of alcohol (finding) [facility] Start: 02-11-2020 End: 04-07-2022 History SDOH Alcohol Frequency 2 [facility] Start: 02-11-2020 End: 07-04-2020 History SDOH Alcohol Std Drinks 1 [facility] Start: 06-29-2019 End: 04-07-2022 History SDOH Social Connections Phone 5 [facility] Start: 06-29-2019 End: 04-07-2022 History SDOH Social Connections Get Together 4 [facility] Start: 02-04-2020 History SDOH Social Connections Hindu 98 [facility] Start: 06-29-2019 End: 04-07-2022 History SDOH Social Connections Living 3 [facility] Start: 02-04-2020 End: 04-07-2022 History SDOH Physical Activity MPS 6 [facility] Start: 06-28-2019 Education 15 [facility] Start: 1955 Sex Assigned At Female [facility] Start: 07-07-2021 End: 04-08-2022 Exposure to SARS-CoV-2 (event) Not sure [facility] Work Phone: Start: 02-28-2011 End: 04-08-2022 Tobacco use and exposure Smokeless tobacco non-user [facility] Work Phone: Start: 04-07-2022 End: 09-24-2022 History of Social function [facility] Start: 04-07-2022 End: 09-24-2022 Social connection and isolation panel [facility] Do you belong to any clubs or organizations such as amish groups, unions, fraternal or athletic groups, or school groups? Yes [facility] Attends Club or Organization Meetings Not on file [facility] Are you now , , , , never or living with a partner? [facility] How often to you hav e a drink containing alcohol? Monthly or less [facility] How many standard dr inks containing alcohol do you have on a typical day? 1 or 2 [facility] How often do you hav e 6 or more drinks on 1 occasion? Never [facility] Do you feel stress - tense, restless, nervous, or anxious, or unable to sleep at night because your mind is troubled all the time - these days [OSQ] To some extent [facility] (I/We) worried wheth er (my/our) food would run out before (I/we) got money to buy more. Never true [facility] In the past 12 month s, was there a time when you were not able to pay the mortgage or rent on time? No [facility] Start: 11-09-2018 Gender identity Identifies as female gender (finding) [facility] Start: 11-09-2018 Sexual orientation Heterosexual (finding) [facility] Medical Equipment Procedure Code Equipment Code [...] Note Facility 06-20-2023 Miscellaneous Notes Lor from [facility] Pre surgical Testing calls and is requesting TSH and EKG results to be faxed to [phone]. Faxed as requested. Luna Damico RN documented in this encounter [facility] 04-16-2023 Miscellaneous Notes Patient has been [...] you. Tara Dudley. documented in this encounter [facility] 03-20-2023 Note HNO ID: [id number] Author: Jesica Valdovinos PA-C Service: ? Author Type: Physician Shield Cleaner Type: Progress Notes Filed: 03/20/2023 2:04 PM [...] Procedure: TBD Surgeon: Dr. Kodak Mathew (orthopedic career placement specialist) METS: Walk indoors, such as around [...] stomach 30 alex (more content not included)... [facility] 03-20-2023 History of Present illness Narrative CC: [...] Procedure: TBD Surgeon: Dr. Kodak Mathew (orthopedic career placement specialist) METS: Walk indoors, such as around [...] of age Thyroid Sister Heart Paternal Grandmother [place] at the age of 64 Arthritis Sister [...] Labs ordered as requested by Cherie at [facility] dermatology - KIM BY IFA WITH REFLEX [...] Jesica Valdovinos PA-C documented in this encounter [facility] 02-12-2023 Note HNO ID: [id number] Author: Jesica Valdovinos PA-C Service: ? Author Type: Physician Shield Cleaner Type: Progress Notes Filed: 02/12/2023 2:47 PM [...] of age Thyroid Sister Heart Paternal Grandmother [place] at the age of 64 Arthritis Sister [...] 16.4 (H) Platemichael (more content not included)... [facility] 02-12-2023 History of Present illness Narrative CC: [...] of age Thyroid Sister Heart Paternal Grandmother [place] at the age of 64 Arthritis Sister [...] Abs Lymph 1.00 - 4.00 k/uL 1.93 Graves% % 8.0 Abs Graves <0.87 k/uL 0.57 Eosin% % 2.0 Abs [...] Jesica Valdovinos PA-C documented in this encounter [facility] 01-07-2023 Miscellaneous Notes Patient has been [...] Tara Dudley LPN documented in this encounter [facility] 12-31-2022 Note HNO ID: [id number] Author: Jesica Valdovinos PA-C Service: ? Author Type: Physician Shield Cleaner Type: Progress Notes Filed: 01/01/2023 7:30 AM [...] for alopecia with oral minoxidil solution at [facility]. States she was supposed to follow-up with [...] of age Thyroid Sister Heart Paternal Grandmother [place] at the age of 64 Arthritis Sister [...] normal for age; (more content not included)... [facility] 12-31-2022 History of Present illness Narrative CC: [...] for alopecia with oral minoxidil solution at [facility]. States she was supposed to follow-up with [...] of age Thyroid Sister Heart Paternal Grandmother [place] at the age of 64 Arthritis Sister [...] complication, with long-term current use of insulin ([facility]) - ICD9: 250.00, V58.67, ICD10: E11.9, Z79.4 [...] Jesica Valdovinos PA-C documented in this encounter [facility] 12-27-2022 Miscellaneous Notes Patient has been [...] Tara Ibrahim LPN documented in this encounter [facility] 12-09-2022 Miscellaneous Notes Addended by: JESICA [...] Tara Ibrahim LPN documented in this encounter [facility] 10-24-2022 Miscellaneous Notes See Telephone note from 10/04. Forms filled out and faxed. Luna Damico, RN Pt calls to report that she spoke to [facility] and was advised they finally got pg 5 of form for Trulicity but they are still missing pg 5. Pt reports she cannot get Trulicity from them until they receive page 5. Pt is asking for this to be taken care of massiel. documented in this encounter [facility] 10-10-2022 Miscellaneous Notes Forms have been completed and faxed on 06/04/22, 07/17/22 and again today. Verified all pages completed and signed. Received phone call from patient regarding patient assistance forms that were faxed to [facility]. Patient does not follow with pharmacy, these [...] complete pages 5 and 6 for Trulicity [facility] program and fax to program. Form can be downloaded from: https://[email or web address]-application Audrey Nguyen PharmD, BCACP Primary Care Clinical Pharmacist documented in this encounter [facility] 10-01-2022 Note HNO ID: [id number] Author: Marina Dickson LPN Service: ? Author Type: ? Type: Progress Notes Filed: 10/01/2022 1:44 PM Note Text: Mammogram- [facility] Ordering Scan on 09/27/2022 9:26 AM by External Provider, PA-C: Mammography [facility] 10-01-2022 History of Present illness Narrative Mammogram- [facility] Ordering Scan on 09/27/2022 9:26 AM by External Provider, BRIANNA: Mammography documented in this encounter [facility] 09-24-2022 Note HNO ID: [id number] Author: Jesika Olson MD Service: ? Author [...] 7.4 although her log book on the ascentify shows fairly good control. has lesser appetite [...] today . Will get in touch with [facility] She is enjoying the free style due [...] of age Thyroid Sister Heart Paternal Grandmother [place] at the age of 64 Arthritis Sister [...] 98% BMI 22.47 (more content not included)... [facility] 09-19-2022 Nurse Note Ambulated to [facility] with assistance. Patient reports she passed a [...] Sada Bauman RN documented in this encounter [facility] 09-19-2022 History and physical note HPI [...] 7.4 although her og book on the ascentify shows fairly good control. has lesser appetite [...] of age Thyroid Sister Heart Paternal Grandmother [place] at the age of 64 Arthritis Sister [...] for annual exam in one year. - [facility] SCREENING W ALEXI Olson MD UPDATED HISTORY [...] TIME: 8:34 AM documented in this encounter [facility] 09-05-2022 Miscellaneous Notes Fax has been received and has been faxed to number on form. Vanessa with [employer] calling to let you know they faxed over order for supplies for Saad 2 sensors and did not hear back. Re-faxing. Pt has monitor. Please watch for this. If there is any problems please call PH: [phone] FAX: [phone] Cara Brock LPN documented in this encounter [facility] 08-20-2022 Note HNO ID: [id number] Author: Jesika Olson MD Service: ? Author [...] of age Thyroid Sister Heart Paternal Grandmother [place] at the age of 64 Arthritis Sister [...] 22.80 kg/m? Gen (more content not included)... [facility] 08-20-2022 History of Present illness Narrative Reason [...] 7.4 although her og book on the [employer]ify shows fairly good control. has lesser appetite [...] of age Thyroid Sister Heart Paternal Grandmother [place] at the age of 64 Arthritis Sister [...] ALEXI Olson MD documented in this encounter [facility] 07-24-2022 Note HNO ID: [id number] Author: Nataliia Feliciano APRN.ADVERTISING TRAFFIC MANAGER Service: ? Author Type: Nurse Practitioner Type: [...] of age Thyroid Sister Heart Paternal Grandmother [place] at the age of 64 Arthritis Sister [...] visualize d/t cerumen (more content not included)... [facility] 07-17-2022 Miscellaneous Notes [employer] forms faxed again. Pt is asking if she is still supposed to be on Trulicity. If so she needs the forms to go to [facility] Assistance Program. She was advised by them that they did not receive pgs 5&6 of the form. Pastora Stephens LPN documented in this encounter [facility] 06-27-2022 Miscellaneous Notes Faxed to number provided along with original form with fax number provided. I printed both the tx Please fax them as requested and also sent the patient our fax no as requested Regards, Jesika Olson MD Patient calls and states that she has not received her insulin from [facility]. Patient said they needed a prescription and amount of medication that she is supposed to take of Trulicity and Basaglar. Fax number is . [facility] is also requesting that PCP fax number also be sent. Please review and advise, Luna Damico RN documented in this encounter [facility] 06-17-2022 Miscellaneous Notes Faxed ov notes to Dr. Moise, per office request. documented in this encounter [facility] 05-16-2022 Miscellaneous Notes Duplicate reqest. Luz Maria Shen LPN documented in this encounter [facility] 05-15-2022 Miscellaneous Notes Patient has been [...] advise. Negin Gilbert documented in this encounter [facility] 04-24-2022 Miscellaneous Notes Patient has been [...] advise. Radha Sotomayor documented in this encounter [facility] [facility] Miscellaneous Notes Patient notified. ----- Message from Jesika Olson MD sent at 04/12/2022 2:05 PM EST ----- Ifobt is negative documented in this encounter [facility] 04-08-2022 History of Present illness Narrative [...] of age Thyroid Sister Heart Paternal Grandmother [place] at the age of 64 Arthritis Sister [...] Jesika Olson MD documented in this encounter [facility] 03-14-2022 History of Present illness Narrative POPULATION HEALTH NAVIGATION OUTREACH Action/ Outcome: 1st attempt- phone answered and then disconnected ,No answer for patient to return my call to schedule. 2nd attempt- LuminalHART message sent. [facility] GAPS: Annual Exam/PCP visit/ BP - already scheduled 05/20/2022 Flu Shot CRC - previously ordered HBA1C- previously ordered Pt identified by name and : NO Outreach Outcome/Action Unable to reach patient: Phone number not valid / voicemail full Yippee Artst message sent Did you use a PCP flex slot to schedule this appointment? N/A Reason for Outreach Care Gap or Scheduling/Wellness visits Payer: Payor: [facility] MEDICARE / Plan: UHC AARP MEDICARE HMO [...] 2022 3:03 PM documented in this encounter [facility] 02-13-2022 Miscellaneous Notes Patient has been [...] advise. Radha Sotomayor documented in this encounter [facility] 11-16-2021 History of Present illness Narrative Reason for Visit Patient presents with: Established Patient: 4 [facility] follow up-DM Gabriela Collado is a 65 [...] of age Thyroid Sister Heart Paternal Grandmother [place] at the age of 64 Arthritis Sister [...] Jesika Olson MD documented in this encounter [facility] 08-31-2021 Miscellaneous Notes Pt called over and wanted to cancel her mammogram being done here in September, canceled for her. Faxed orders over to [facility] [phone], for her to have done over there. documented in this encounter [facility] 08-29-2021 History of Present illness Narrative [...] On July 26, pt sent message via [employer] reporting low BG, advised pt to change [...] 107 11/16/2020 The 10-year ASCVD risk score ([place] ALEXEI Jr., et al., 2013) is: 11.3% [...] for continued use HbA1c: 10/12/21 - ZOEAGLBEN GRMIMPEN U-100 INSULIN 100 UNIT/ML (3 ML) SUBCUTANEOUS [...] was 22 minutes. documented in this encounter [facility] 08-29-2021 Instructions Audrey Nguyen RPh - 08/29/2021 10:00 AM EDT Continue medications at same doses Ways to help sensor stay on: Skin Tac(skin adhesive) Tegaderm (clear film) documented in this encounter [facility] 07-31-2021 Miscellaneous Notes Yes, patient has initiated Freestyle Saad 2 request from [employer]. She has Medicare, I have explained to [...] Pharmacist [facility] documented in this encounter [facility] 07-30-2021 History of Present illness Narrative [...] On July 26, pt sent message via [employer] reporting low BG, advised pt to change [...] 1 g vaginally as directed. mv-mn/folic acid/vit [id number] (ALIVE ONCE DAILY WOMEN 50 PLUS ORAL) [...] complication, with long-term current use of insulin ([facility]) - ICD9: 250.00, V58.67, ICD10: E11.9, Z79.4 [...] was 26 minutes. documented in this encounter [facility] 07-30-2021 Instructions Audrey Nguyen RPh - 07/30/2021 10:30 AM EDT Decrease Basaglar to 22 units once daily - If having low blood sugars after 3 days, decrease to 20 units daily Continue all other medications at same dose documented in this encounter [facility] 07-18-2021 History of Present illness Narrative [...] 1 g vaginally as directed. mv-mn/folic acid/vit [id number] (ALIVE ONCE DAILY WOMEN 50 PLUS ORAL) [...] complication, with long-term current use of insulin ([facility]) - ICD9: 250.00, V58.67, ICD10: E11.9, Z79.4 A1c goal < 7%; not at goal (last A1c 7.5%); Limited SMBG readings to review; reports s/sx hypoglycemia; denies s/sx hyperglycemia. Pt interested in resuming CGM. Provided sample Saad 2 sensor. She receives DM testing supplies from [employer] at this time. Reviewed with her medicare [...] was 28 minutes. documented in this encounter [facility] documented as of this encounter (statuses as of 07/30/2021) [facility] History of Past illness Narrative* Problem Noted Date Resolved Date Stage 3 chronic kidney disease 12/14/2018 0 07/01/2019 Hypothyroidism 09/13/2014 07/01/2019 Last Assessment & Plan: Her thyroid is doing good. Routine general medical exam ination at a health care facility 06/30/2009 09/20/2015 Overview: 06/30/2009, from Dr. Davison 08/16/2010, yearly check Routine gynecological examination 06/30/2009 09/20/2015 Overview: [facility], [facility] [place] Menopause syndrome 06/30/2009 09/20/2015 Migraine, unspecified, with intractable migraine, so stated, without mention of status migrainosus 07/01/2019 Overview: Migraine OSTEOPENIA 07/01/2019 Overview: 2004 --2008 bone mass down 10% Unspecified constipation 016 Unspecified hemorrhoids without mention of compl ication 07/01/2019 Overview: Hemorrhoids documented as of this encounter (statuses as of 07/30/2021) [facility] History of Past illness Narrative* Problem Noted Date Resolved Date Stage 3 chronic kidney disease 12/14/2018 0 07/01/2019 Hypothyroidism 09/13/2014 07/01/2019 Last Assessment & Plan: Her thyroid is doing good. Routine general medical exam ination at a health care facility 06/30/2009 09/20/2015 Overview: 06/30/2009, from Dr. Davison 08/16/2010, yearly check Routine gynecological examination 06/30/2009 09/20/2015 Overview: [facility], [facility] [place] Menopause syndrome 06/30/2009 09/20/2015 Migraine, unspecified, with intractable migraine, so stated, without mention of status migrainosus 07/01/2019 Overview: Migraine OSTEOPENIA 07/01/2019 Overview: 2004 --2008 bone mass down 10% Unspecified constipation 016 Unspecified hemorrhoids without mention of compl ication 07/01/2019 Overview: Hemorrhoids documented as of this encounter (statuses as of 07/31/2021) [facility] History of Past illness Narrative* Problem Noted Date Resolved Date Stage 3 chronic kidney disease 12/14/2018 0 07/01/2019 Hypothyroidism 09/13/2014 07/01/2019 Last Assessment & Plan: Her thyroid is doing good. Routine general medical exam ination at a health care facility 06/30/2009 09/20/2015 Overview: 06/30/2009, from Dr. Davison 08/16/2010, yearly check Routine gynecological examination 06/30/2009 09/20/2015 Overview: [facility], [facility] [place] Menopause syndrome 06/30/2009 09/20/2015 Migraine, unspecified, with intractable migraine, so stated, without mention of status migrainosus 07/01/2019 Overview: Migraine OSTEOPENIA 07/01/2019 Overview: 2004 --> 2008 bone mass down 10% Unspecified constipation 016 Unspecified hemorrhoids without mention of compl ication 07/01/2019 Overview: Hemorrhoids documented as of this encounter (statuses as of 08/14/2021) [facility] History of Past illness Narrative* Problem Noted Date Resolved Date Stage 3 chronic kidney disease 12/14/2018 0 07/01/2019 Hypothyroidism 09/13/2014 07/01/2019 Last Assessment & Plan: Her thyroid is doing good. Routine general medical exam ination at a health care facility 06/30/2009 09/20/2015 Overview: 06/30/2009, from Dr. Davison 08/16/2010, yearly check Routine gynecological examination 06/30/2009 09/20/2015 Overview: [facility], [facility] [place] Menopause syndrome 06/30/2009 09/20/2015 Migraine, unspecified, with intractable migraine, so stated, without mention of status migrainosus 07/01/2019 Overview: Migraine OSTEOPENIA 07/01/2019 Overview: 2004 --2008 bone mass down 10% Unspecified constipation 016 Unspecified hemorrhoids without mention of compl ication 07/01/2019 Overview: Hemorrhoids documented as of this encounter (statuses as of 08/31/2021) [facility] History of Past illness Narrative* Problem Noted Date Resolved Date Stage 3 chronic kidney disease 12/14/2018 0 07/01/2019 Hypothyroidism 09/13/2014 07/01/2019 Last Assessment & Plan: Her thyroid is doing good. Routine general medical exam ination at a health care facility 06/30/2009 09/20/2015 Overview: 06/30/2009, from Dr. Davison 08/16/2010, yearly check Routine gynecological examination 06/30/2009 09/20/2015 Overview: [facility], [facility] [place] Menopause syndrome 06/30/2009 09/20/2015 Migraine, unspecified, with intractable migraine, so stated, without mention of status migrainosus 07/01/2019 Overview: Migraine OSTEOPENIA 07/01/2019 Overview: 2004 --2008 bone mass down 10% Unspecified constipation 016 Unspecified hemorrhoids without mention of compl ication 07/01/2019 Overview: Hemorrhoids documented as of this encounter (statuses as of 09/03/2021) [facility] History of Past illness Narrative* Problem Noted Date Resolved Date Stage 3 chronic kidney disease 12/14/2018 0 07/01/2019 Hypothyroidism 09/13/2014 07/01/2019 Last Assessment & Plan: Her thyroid is doing good. Routine general medical exam ination at a health care facility 06/30/2009 09/20/2015 Overview: 06/30/2009, from Dr. Davison 08/16/2010, yearly check Routine gynecological examination 06/30/2009 09/20/2015 Overview: [facility], [facility] [place] Menopause syndrome 06/30/2009 09/20/2015 Migraine, unspecified, with intractable migraine, so stated, without mention of status migrainosus 07/01/2019 Overview: Migraine OSTEOPENIA 07/01/2019 Overview: 2004 --2008 bone mass down 10% Unspecified constipation 016 Unspecified hemorrhoids without mention of compl ication 07/01/2019 Overview: Hemorrhoids documented as of this encounter (statuses as of 11/16/2021) [facility] History of Past illness Narrative* Problem Noted Date Resolved Date Stage 3 chronic kidney disease 12/14/2018 0 07/01/2019 Hypothyroidism 09/13/2014 07/01/2019 Last Assessment & Plan: Her thyroid is doing good. Routine general medical exam ination at a health care facility 06/30/2009 09/20/2015 Overview: 06/30/2009, from Dr. Davison 08/16/2010, yearly check Routine gynecological examination 06/30/2009 09/20/2015 Overview: [facility], [facility] [place] Menopause syndrome 06/30/2009 09/20/2015 Migraine, unspecified, with intractable migraine, so stated, without mention of status migrainosus 07/01/2019 Overview: Migraine OSTEOPENIA 07/01/2019 Overview: 2004 --2008 bone mass down 10% Unspecified constipation 016 Unspecified hemorrhoids without mention of compl ication 07/01/2019 Overview: Hemorrhoids documented as of this encounter (statuses as of 02/13/2022) [facility] History of Past illness Narrative* Problem Noted Date Resolved Date Stage 3 chronic kidney disease 12/14/2018 0 07/01/2019 Hypothyroidism 09/13/2014 07/01/2019 Last Assessment & Plan: Her thyroid is doing good. Routine general medical exam ination at a health care facility 06/30/2009 09/20/2015 Overview: 06/30/2009, from Dr. Davison 08/16/2010, yearly check Routine gynecological examination 06/30/2009 09/20/2015 Overview: [facility], [facility] [place] Menopause syndrome 06/30/2009 09/20/2015 Migraine, unspecified, with intractable migraine, so stated, without mention of status migrainosus 07/01/2019 Overview: Migraine OSTEOPENIA 07/01/2019 Overview: 2004 --2008 bone mass down 10% Unspecified constipation 016 Unspecified hemorrhoids without mention of compl ication 07/01/2019 Overview: Hemorrhoids documented as of this encounter (statuses as of 03/14/2022) [facility] History of Past illness Narrative* Problem Noted Date Resolved Date Stage 3 chronic kidney disease 12/14/2018 0 07/01/2019 Hypothyroidism 09/13/2014 07/01/2019 Last Assessment & Plan: Her thyroid is doing good. Routine general medical exam ination at a health care facility 06/30/2009 09/20/2015 Overview: 06/30/2009, from Dr. Davison 08/16/2010, yearly check Routine gynecological examination 06/30/2009 09/20/2015 Overview: [facility] [place] Menopause syndrome 06/30/2009 09/20/2015 Migraine, unspecified, with intractable migraine, so stated, without mention of status migrainosus 07/01/2019 Overview: Migraine OSTEOPENIA 07/01/2019 Overview: 2004 --2008 bone mass down 10% Unspecified constipation 016 Unspecified hemorrhoids without mention of compl ication 07/01/2019 Overview: Hemorrhoids documented as of this encounter (statuses as of 03/18/2022) [facility] History of Past illness Narrative* Problem Noted Date Resolved Date Stage 3 chronic kidney disease 12/14/2018 0 07/01/2019 Hypothyroidism 09/13/2014 07/01/2019 Last Assessment & Plan: Her thyroid is doing good. Routine general medical exam ination at a health care facility 06/30/2009 09/20/2015 Overview: 06/30/2009, from Dr. Davison 08/16/2010, yearly check Routine gynecological examination 06/30/2009 09/20/2015 Overview: [facility], [facility] [place] Menopause syndrome 06/30/2009 09/20/2015 Migraine, unspecified, with intractable migraine, so stated, without mention of status migrainosus 07/01/2019 Overview: Migraine OSTEOPENIA 07/01/2019 Overview: 2004 --2008 bone mass down 10% Unspecified constipation 016 Unspecified hemorrhoids without mention of compl ication 07/01/2019 Overview: Hemorrhoids documented as of this encounter (statuses as of 03/25/2022) [facility] History of Past illness Narrative* Problem Noted Date Resolved Date Stage 3 chronic kidney disease 12/14/2018 0 07/01/2019 Hypothyroidism 09/13/2014 07/01/2019 Last Assessment & Plan: Her thyroid is doing good. Routine general medical exam ination at a health care facility 06/30/2009 09/20/2015 Overview: 06/30/2009, from Dr. Davison 08/16/2010, yearly check Routine gynecological examination 06/30/2009 09/20/2015 Overview: [facility], [facility] [place] Menopause syndrome 06/30/2009 09/20/2015 Migraine, unspecified, with intractable migraine, so stated, without mention of status migrainosus 07/01/2019 Overview: Migraine OSTEOPENIA 07/01/2019 Overview: 2004 --2008 bone mass down 10% Unspecified constipation 016 Unspecified hemorrhoids without mention of compl ication 07/01/2019 Overview: Hemorrhoids documented as of this encounter (statuses as of 04/08/2022) [facility] History of Past illness Narrative* Problem Noted Date Resolved Date Stage 3 chronic kidney disease 12/14/2018 0 07/01/2019 Hypothyroidism 09/13/2014 07/01/2019 Last Assessment & Plan: Her thyroid is doing good. Routine general medical exam ination at a health care facility 06/30/2009 09/20/2015 Overview: 06/30/2009, from Dr. Davison 08/16/2010, yearly check Routine gynecological examination 06/30/2009 09/20/2015 Overview: [facility], [facility] [place] Menopause syndrome 06/30/2009 09/20/2015 Migraine, unspecified, with intractable migraine, so stated, without mention of status migrainosus 07/01/2019 Overview: Migraine OSTEOPENIA 07/01/2019 Overview: 2004 --2008 bone mass down 10% Unspecified constipation 016 Unspecified hemorrhoids without mention of compl ication 07/01/2019 Overview: Hemorrhoids documented as of this encounter (statuses as of 04/12/2022) [facility] History of Past illness Narrative* Problem Noted Date Resolved Date Stage 3 chronic kidney disease 12/14/2018 0 07/01/2019 Hypothyroidism 09/13/2014 07/01/2019 Last Assessment & Plan: Her thyroid is doing good. Routine general medical exam ination at a health care facility 06/30/2009 09/20/2015 Overview: 06/30/2009, from Dr. Davison 08/16/2010, yearly check Routine gynecological examination 06/30/2009 09/20/2015 Overview: [facility], [facility] [place] Menopause syndrome 06/30/2009 09/20/2015 Migraine, unspecified, with intractable migraine, so stated, without mention of status migrainosus 07/01/2019 Overview: Migraine OSTEOPENIA 07/01/2019 Overview: 2004 --2008 bone mass down 10% Unspecified constipation 016 Unspecified hemorrhoids without mention of compl ication 07/01/2019 Overview: Hemorrhoids documented as of this encounter (statuses as of 04/26/2022) [facility] History of Past illness Narrative* Problem Noted Date Resolved Date Stage 3 chronic kidney disease 12/14/2018 0 07/01/2019 Hypothyroidism 09/13/2014 07/01/2019 Last Assessment & Plan: Her thyroid is doing good. Routine general medical exam ination at a health care facility 06/30/2009 09/20/2015 Overview: 06/30/2009, from Dr. Davison 08/16/2010, yearly check Routine gynecological examination 06/30/2009 09/20/2015 Overview: [facility], [facility] [place] Menopause syndrome 06/30/2009 09/20/2015 Migraine, unspecified, with intractable migraine, so stated, without mention of status migrainosus 07/01/2019 Overview: Migraine OSTEOPENIA 07/01/2019 Overview: 2004 --2008 bone mass down 10% Unspecified constipation 016 Unspecified hemorrhoids without mention of compl ication 07/01/2019 Overview: Hemorrhoids documented as of this encounter (statuses as of 05/16/2022) [facility] History of Past illness Narrative* Problem Noted Date Resolved Date Stage 3 chronic kidney disease 12/14/2018 0 07/01/2019 Hypothyroidism 09/13/2014 07/01/2019 Last Assessment & Plan: Her thyroid is doing good. Routine general medical exam ination at a health care facility 06/30/2009 09/20/2015 Overview: 06/30/2009, from Dr. Davison 08/16/2010, yearly check Routine gynecological examination 06/30/2009 09/20/2015 Overview: [facility], [facility] [place] Menopause syndrome 06/30/2009 09/20/2015 Migraine, unspecified, with intractable migraine, so stated, without mention of status migrainosus 07/01/2019 Overview: Migraine OSTEOPENIA 07/01/2019 Overview: 2004 --> 2008 bone mass down 10% Unspecified constipation 016 Unspecified hemorrhoids without mention of compl ication 07/01/2019 Overview: Hemorrhoids documented as of this encounter (statuses as of 05/16/2022) [facility] of Past illness Narrative* Problem Noted Date Resolved Date Stage 3 chronic kidney disease 12/14/2018 0 07/01/2019 Hypothyroidism 09/13/2014 07/01/2019 Last Assessment & Plan: Her thyroid is doing good. Routine general medical exam ination at a health care facility 06/30/2009 09/20/2015 Overview: 06/30/2009, from Dr. Davison 08/16/2010, yearly check Routine gynecological examination 06/30/2009 09/20/2015 Overview: [facility], [facility] [place] Menopause syndrome 06/30/2009 09/20/2015 Migraine, unspecified, with intractable migraine, so stated, without mention of status migrainosus 07/01/2019 Overview: Migraine OSTEOPENIA 07/01/2019 Overview: 2004 --2008 bone mass down 10% Unspecified constipation 016 Unspecified hemorrhoids without mention of compl ication 07/01/2019 Overview: Hemorrhoids documented as of this encounter (statuses as of 06/17/2022) [facility] of Past illness Narrative* Problem Noted Date Resolved Date Stage 3 chronic kidney disease 12/14/2018 0 07/01/2019 Hypothyroidism 09/13/2014 07/01/2019 Last Assessment & Plan: Her thyroid is doing good. Routine general medical exam ination at a health care facility 06/30/2009 09/20/2015 Overview: 06/30/2009, from Dr. Davison 08/16/2010, yearly check Routine gynecological examination 06/30/2009 09/20/2015 Overview: [facility], [facility] [place] Menopause syndrome 06/30/2009 09/20/2015 Migraine, unspecified, with intractable migraine, so stated, without mention of status migrainosus 07/01/2019 Overview: Migraine OSTEOPENIA 07/01/2019 Overview: 2004 --2008 bone mass down 10% Unspecified constipation 016 Unspecified hemorrhoids without mention of compl ication 07/01/2019 Overview: Hemorrhoids documented as of this encounter (statuses as of 06/27/2022) [facility] of Past illness Narrative* Problem Noted Date Resolved Date Stage 3 chronic kidney disease 12/14/2018 0 07/01/2019 Hypothyroidism 09/13/2014 07/01/2019 Last Assessment & Plan: Her thyroid is doing good. Routine general medical exam ination at a health care facility 06/30/2009 09/20/2015 Overview: 06/30/2009, from Dr. Davison 08/16/2010, yearly check Routine gynecological examination 06/30/2009 09/20/2015 Overview: [facility], [facility] [place] Menopause syndrome 06/30/2009 09/20/2015 Migraine, unspecified, with intractable migraine, so stated, without mention of status migrainosus 07/01/2019 Overview: Migraine OSTEOPENIA 07/01/2019 Overview: 2004 --2008 bone mass down 10% Unspecified constipation 016 Unspecified hemorrhoids without mention of compl ication 07/01/2019 Overview: Hemorrhoids documented as of this encounter (statuses as of 07/17/2022) [facility] Past illness Narrative* Problem Noted Date Resolved Date Stage 3 chronic kidney disease 12/14/2018 0 07/01/2019 Hypothyroidism 09/13/2014 07/01/2019 Last Assessment & Plan: Her thyroid is doing good. Routine general medical exam ination at a health care facility 06/30/2009 09/20/2015 Overview: 06/30/2009, from Dr. Davison 08/16/2010, yearly check Routine gynecological examination 06/30/2009 09/20/2015 Overview: [facility], [facility] [place] Menopause syndrome 06/30/2009 09/20/2015 Migraine, unspecified, with intractable migraine, so stated, without mention of status migrainosus 07/01/2019 Overview: Migraine OSTEOPENIA 07/01/2019 Overview: 2004 --2008 bone mass down 10% Unspecified constipation 016 Unspecified hemorrhoids without mention of compl ication 07/01/2019 Overview: Hemorrhoids documented as of this encounter (statuses as of 08/21/2022) [facility] Past illness Narrative* Problem Noted Date Resolved Date Stage 3 chronic kidney disease 12/14/2018 0 07/01/2019 Hypothyroidism 09/13/2014 07/01/2019 Last Assessment & Plan: Her thyroid is doing good. Routine general medical exam ination at a health care facility 06/30/2009 09/20/2015 Overview: 06/30/2009, from Dr. Davison 08/16/2010, yearly check Routine gynecological examination 06/30/2009 09/20/2015 Overview: [facility], [facility] [place] Menopause syndrome 06/30/2009 09/20/2015 Migraine, unspecified, with intractable migraine, so stated, without mention of status migrainosus 07/01/2019 Overview: Migraine OSTEOPENIA 07/01/2019 Overview: 2004 --> 2008 bone mass down 10% Unspecified constipation 016 Unspecified hemorrhoids without mention of compl ication 07/01/2019 Overview: Hemorrhoids documented as of this encounter (statuses as of 09/05/2022) [facility] Narrative* Problem [...] of this encounter (statuses as of 10/02/2022) [facility] Narrative* Problem [...] of this encounter (statuses as of 10/10/2022) [facility] Narrative* Problem [...] of this encounter (statuses as of 10/25/2022) [facility] Narrative* Problem [...] of this encounter (statuses as of 12/10/2022) [facility] Narrative* Problem [...] of this encounter (statuses as of 12/27/2022) [facility]2019 History of Past illness Narrative* Problem Noted Date Diagnosed Date Resolved Date Stage 3 chronic kidney disease 12/14/2018 07/01/2019 Hypothyroidism 09/13/2014 07/01/2019 Last Assessment & Plan: Her thyroid is doing good. Routine general medical exam ination at a [facility] care facility 06/30/2009 09/20/2015 Overview: 06/30/2009, from Dr. Davison 08/16/2010, yearly check Menopause syndrome 06/30/2009 6 Migraine, unspecified, with intractable migraine, so stated, without mention of status migrainosus 07/01/2019 Overview: Migraine OSTEOPENIA 07/01/2019 Overview: 2004 bone mass down 10% Unspecified constipation Unspecified hemorrhoids with out mention of complication 07/01/2019 Overview: Hemorrhoids documented as of this encounter (statuses as of 01/01/2023) [facility] History of Past illness Narrative* Problem [...] of this encounter (statuses as of 01/08/2023) [facility] History of Past illness Narrative* Problem Noted Date Diagnosed Date Resolved Date Stage 3 chronic kidney disease 12/14/2018 07/01/2019 Hypothyroidism 09/13/2014 07/01/2019 Last Assessment & Plan: Her thyroid is doing good. Routine general medical exam ination at a [facility] care facility 06/30/2009 09/20/2015 Overview: 06/30/2009, from Dr. Davison 08/16/2010, yearly check Menopause syndrome 06/30/2009 6 Migraine, unspecified, with intractable migraine, so stated, without mention of status migrainosus 07/01/2019 Overview: Migraine OSTEOPENIA 07/01/2019 Overview: 2004 bone mass down 10% Unspecified constipation Unspecified hemorrhoids with out mention of complication 07/01/2019 Overview: Hemorrhoids documented as of this encounter (statuses as of 02/10/2023) [facility] History of Past illness Narrative* Problem [...] of this encounter (statuses as of 02/12/2023) [facility] History of Past illness Narrative* Problem [...] of this encounter (statuses as of 03/09/2023) [facility] History of Past illness Narrative* Problem [...] of this encounter (statuses as of 03/20/2023) [facility] History of Past illness Narrative* Problem [...] of this encounter (statuses as of 04/17/2023) [facility] History of Past illness Narrative* Problem [...] of this encounter (statuses as of 06/20/2023) [facility] Type 2 diabetes mellitus without complication, with long-term current use of insulin (HCC)- [facility] Type 2 diabetes mellitus [...] hypertension, benign [facility] Diagnosis Essential hypertension, benign [facility] Diagnosis Post-surgical hypothyroidism Postsurgical hypothyroidism documented in this encounter [facility] note* Diagnosis Type 2 diabetes mellitus without complication, with long-term current use of insulin (HCC) documented in this encounter [facility] note* Diagnosis Nausea- Primary Nausea alone Tinnitus of both ears Unspecified tinnitus Impacted cerumen of left ear Impacted cerumen Headache, unspecified headache type Type 2 diabetes mellitus without complication, with long-term current use of insulin (HCC) Breast cancer screening by mammogram documented in this encounter [facility] note* Diagnosis Mixed hyperlipidemia [facility] Diagnosis Essential hypertension, benign documented in this encounter [facility] note* Diagnosis Type 2 diabetes mellitus without complication, with long-term current use of insulin (HCC)- Primary Essential hypertension, benign Post-surgical hypothyroidism Postsurgical hypothyroidism Hair loss Alopecia, unspecified Microcytosis Other abnormality of red blood cells Chronic midline low back pain without sciatica documented in this encounter [facility] note* Diagnosis Osteopenia of multiple sites documented in this encounter [facility] note* Diagnosis Microcytic anemia- Primary Iron deficiency anemia, unspecified Dysuria Acute cystitis with hematuria Acute cystitis documented in this encounter [facility] note* Diagnosis Encounter for screening for malignant neoplasm of colon- Primary Special screening for malignant neoplasms, colon Screening for colon cancer Special screening for malignant neoplasms, colon documented in this encounter [facility] note* Diagnosis 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 Degeneration, intervertebral disc, lumbar Degeneration of lumbar or lumbosacral intervertebral disc Other spondylosis, lumbar region Preoperative clearance Preoperative examination, unspecified Telogen effluvium Type 2 diabetes mellitus without complication, with long-term current use of insulin (HCC) Encounter for immunization Need for other specified prophylactic vaccination against single bacterial disease Intermittent palpitations documented in this encounter [facility] for referral (narrative)* Outpatient Procedure (Routine) - Pending Review Specialty Diagnoses / Procedures Referred By Shaggy cisneros Referred To Contact [facility] Diagnoses Screening for colon cancer Procedures COLONOSCOPY SCREENING COLONOSCOPY FLX DX W/COLLJ SPEC WHEN PFJesika Hatfield MD [address] [place] [address] [facility] [address] [place] [id number] Referral ID Status Reason Start Date Expiration Date Visits Requested Visits Authorized [id number] Pending Review Auto-Generat ed Referral 03/13/2022 03/13/2023 1 1 [facility] for referral (narrative)* Diagnostic Procedure Only (Routine) - Pending Review Specialty Diagnoses / Procedures Referred By Shaggy cisneros Referred To Contact [facility] Diagnoses Breast cancer screening by mammogram Procedures DELONTE SCREENING W ALEXI SCREENING DIGITAL BREAST TOMOSYNTHESIS BI SCREENING MAMMOGRAPHY BI 2-VIEW BREAST INC Jesika Fair MD [address] [place] [address] [facility] [address] [place] [id number] Referral ID Status Reason Start Date Expiration Date Visits Requested Visits Authorized [id number] Pending Review Auto-Generat ed Referral 08/20/2022 09/19/2023 1 1 T [facility] for referral (narrative)* Outpatient Procedure (Routine) - Closed Specialty Diagnoses / Procedures Referred By Shaggy cisneros Referred To Contact [facility] Diagnoses Screening for colon cancer Procedures COLONOSCOPY SCREENING COLONOSCOPY FLX DX W/COLLJ SPEC WHEN Jesika Anderson MD [address] [place] [address] [facility] [address] [place] [id number] Referral ID Status Reason Start Date Expiration Date V isits Requested Visits Authorized [id number] Closed Auto-Generate d Referral 03/13/2022 03/13/2023 1 1 T [facility] for referral (narrative)* Outpatient Procedure (Routine) - Pending Review Specialty Diagnoses / Procedures Referred By Shaggy cisneros Ref[facility] Diagnoses Preoperative clearance Procedures ECG COMPLETE ECG ROUTINE ECG W/LEAST 12 LDS W/I&R Jesica Valdovinos PA-C [address] [place] [address] [facility] [place] [address] [place] [address] Referral ID Status Reason Start Date Expiration Date Visits Requested Visits Authorized [id number] Pending Review Auto-Generat ed Referral 3 03/19/2024 1 1 [facility] Advance Directives No Advanced Directives Records FoundDocuments on File Type Date Recorded Patient Complaint Specialist Expl anation Advance Directive(s) 10/24/2015 11:28 AM Documents on File Type Date Recorded Patient Complaint Specialist Expl anation Advance Directive(s) 10/24/2015 11:28 AM Documents on File Type Date Recorded Patient Complaint Specialist Expl anation Advance Directive(s) 10/24/2015 11:28 AM A DVANCE DIRECTIVE Documents on File Type Date Recorded Patient Complaint Specialist Expl anation Advance Directive(s) 10/24/2015 11:28 AM [...] or prosecute any alcohol or drug abuse patient.[facility] the event this information is protected by the Federal Confidentiality of Alcohol and Drug Abuse Patient Records regulations: The Federal rules restrict any use of the information to criminally investigate or prosecute any alcohol or drug abuse patient.[facility] the event this information is protected by the Federal Confidentiality of Alcohol and Drug Abuse Patient Records regulations: The Federal rules restrict any use of the information to criminally investigate or prosecute any alcohol or drug abuse patient.[facility] the event this information is protected by the Federal Confidentiality of Alcohol and Drug Abuse Patient Records regulations: The Federal rules restrict any use of the information to criminally investigate or prosecute any alcohol or drug abuse patient.[facility] the event this information is protected by the Federal Confidentiality of Alcohol and Drug Abuse Patient Records regulations: The Federal rules restrict any use of the information to criminally investigate or prosecute any alcohol or drug abuse patient.[facility] the event this information is protected by the Federal Confidentiality of Alcohol and Drug Abuse Patient Records regulations: The Federal rules restrict any use of the information to criminally investigate or prosecute any alcohol or drug abuse patient.[facility] the event this information is protected by the Federal Confidentiality of Alcohol and Drug Abuse Patient Records regulations: The Federal rules restrict any use of the information to criminally investigate or prosecute any alcohol or drug abuse patient.[facility] the event this information is protected by the Federal Confidentiality of Alcohol and Drug Abuse Patient Records regulations: The Federal rules restrict any use of the information to criminally investigate or prosecute any alcohol or drug abuse patient.[facility] the event this information is protected by the Federal Confidentiality of Alcohol and Drug Abuse Patient Records regulations: The Federal rules restrict any use of the information to criminally investigate or prosecute any alcohol or drug abuse patient.[facility] the event this information is protected by the Federal Confidentiality of Alcohol and Drug Abuse Patient Records regulations: The Federal rules restrict any use of the information to criminally investigate or prosecute any alcohol or drug abuse patient.[facility] the event this information is protected by the Federal Confidentiality of Alcohol and Drug Abuse Patient Records regulations: The Federal rules restrict any use of the information to criminally investigate or prosecute any alcohol or drug abuse patient.[facility] the event this information is protected by the Federal Confidentiality of Alcohol and Drug Abuse Patient Records regulations: The Federal rules restrict any use of the information to criminally investigate or prosecute any alcohol or drug abuse patient.[facility] the event this information is protected by the Federal Confidentiality of Alcohol and Drug Abuse Patient Records regulations: The Federal rules restrict any use of the information to criminally investigate or prosecute any alcohol or drug abuse patient.[facility] the event this information is protected by the Federal Confidentiality of Alcohol and Drug Abuse Patient Records regulations: The Federal rules restrict any use of the information to criminally investigate or prosecute any alcohol or drug abuse patient.[facility] the event this information is protected by the Federal Confidentiality of Alcohol and Drug Abuse Patient Records regulations: The Federal rules restrict any use of the information to criminally investigate or prosecute any alcohol or drug abuse patient.[facility] the event this information is protected by the Federal Confidentiality of Alcohol and Drug Abuse Patient Records regulations: The Federal rules restrict any use of the information to criminally investigate or prosecute any alcohol or drug abuse patient.[facility] the event this information is protected by the Federal Confidentiality of Alcohol and Drug Abuse Patient Records regulations: The Federal rules restrict any use of the information to criminally investigate or prosecute any alcohol or drug abuse patient.[facility] the event this information is protected by the Federal Confidentiality of Alcohol and Drug Abuse Patient Records regulations: The Federal rules restrict any use of the information to criminally investigate or prosecute any alcohol or drug abuse patient.[facility] the event this information is protected by the Federal Confidentiality of Alcohol and Drug Abuse Patient Records regulations: The Federal rules restrict any use of the information to criminally investigate or prosecute any alcohol or drug abuse patient.[facility] the event this information is protected by the Federal Confidentiality of Alcohol and Drug Abuse Patient Records regulations: The Federal rules restrict any use of the information to criminally investigate or prosecute any alcohol or drug abuse patient.[facility] the event this information is protected by the Federal Confidentiality of Alcohol and Drug Abuse Patient Records regulations: The Federal rules restrict any use of the information to criminally investigate or prosecute any alcohol or drug abuse patient.[facility] the event this information is protected by the Federal Confidentiality of Alcohol and Drug Abuse Patient Records regulations: The Federal rules restrict any use of the information to criminally investigate or prosecute any alcohol or drug abuse patient.[facility] the event this information is protected by the Federal Confidentiality of Alcohol and Drug Abuse Patient Records regulations: The Federal rules restrict any use of the information to criminally investigate or prosecute any alcohol or drug abuse patient.[facility] the event this information is protected by the Federal Confidentiality of Alcohol and Drug Abuse Patient Records regulations: The Federal rules restrict any use of the information to criminally investigate or prosecute any alcohol or drug abuse patient.[facility] the event this information is protected by the Federal Confidentiality of Alcohol and Drug Abuse Patient Records regulations: The Federal rules restrict any use of the information to criminally investigate or prosecute any alcohol or drug abuse patient.[facility] the event this information is protected by the Federal Confidentiality of Alcohol and Drug Abuse Patient Records regulations: The Federal rules restrict any use of the information to criminally investigate or prosecute any alcohol or drug abuse patient.[facility] the event this information is protected by the Federal Confidentiality of Alcohol and Drug Abuse Patient Records regulations: The Federal rules restrict any use of the information to criminally investigate or prosecute any alcohol or drug abuse patient.[facility] the event this information is protected by the Federal Confidentiality of Alcohol and Drug Abuse Patient Records regulations: The Federal rules restrict any use of the information to criminally investigate or prosecute any alcohol or drug abuse patient.[facility] the event this information is protected by the Federal Confidentiality of Alcohol and Drug Abuse Patient Records regulations: The Federal rules restrict any use of the information to criminally investigate or prosecute any alcohol or drug abuse patient.[facility] the event this information is protected by the Federal Confidentiality of Alcohol and Drug Abuse Patient Records regulations: The Federal rules restrict any use of the information to criminally investigate or prosecute any alcohol or drug abuse patient.[facility] the event this information is protected by the Federal Confidentiality of Alcohol and Drug Abuse Patient Records regulations: The Federal rules restrict any use of the information to criminally investigate or prosecute any alcohol or drug abuse patient.[facility] the event this information is protected by the Federal Confidentiality of Alcohol and Drug Abuse Patient Records regulations: The Federal rules restrict any use of the information to criminally investigate or prosecute any alcohol or drug abuse patient.[facility] the event this information is protected by the Federal Confidentiality of Alcohol and Drug Abuse Patient Records regulations: The Federal rules restrict any use of the information to criminally investigate or prosecute any alcohol or drug abuse patient.[facility] the event this information is protected by the Federal Confidentiality of Alcohol and Drug Abuse Patient Records regulations: The Federal rules restrict any use of the information to criminally investigate or prosecute any alcohol or drug abuse patient.[facility] Reason for Visit (unrecogniz ed section and content) Specialty Diagnoses / Procedures Referred By Shaggy cisneros Referred To Contact Pharmacy / PHARMACY Diagnoses DM follow up Procedures EST PHARMACY Self Audrey Nguyen [facility] [address] [place] [address] Referral ID Status Reason Start Date Expiration Date V isits Requested Visits Authorized [id number] Closed Financial Clearance Required - OON Payor [...] 30-39 MIN 4C EST Jesika Olson MD [address] [place] [address] Jesika Olson MD [address] [place] [address] Referral ID Status Reason Start Date Expiration Date Visits Re quested Visits Authorized [id number] Closed 11/16/2021 05/04/2022 1 1 Reason Onset Date Comments Refill Request 02/13/2022 Reason Onset Date Comments Population Health Navigation Outreach 03/14/2022 [facility] Reason Comments Recheck hair loss x [...] Referred By Shaggy cisneros Referred To Contact [facility] Diagnoses Encounter for screening for malignant neoplasm of colon Procedures COLONOSCOPY FLX W/REMOVAL OF FOREIGN BODY(S) [facility] [address] [place] [address] Referral ID Status Reason Start Date Expiration Date Visits Re quested Visits Authorized [id number] 1 1 Reason Comments PreOp Call surgery date is unde termined at this time for insertion of spinal cord stimulator trial leads Dr. kodak Mathew and dropping off paper work for patient assistance Reason Comments Faxed Results TSH and EKG Care Teams (unrecognized sec tion and content) Back Tender Paper Machine Relationship Specialty Start Date End Date Jesika Olson MD [address] [place] [address] PCP - General Internal Medicine 12/15/18 Tucker Andrews [address] [place] [address] Physician Optometry 09/20/19 Audrey Nguyen, [facility] [address] [place], [place] [id number] Pharmacist Pharmacy 02/21/20 Back Tender [employer] Machine Relationship Specialty Start Date End Date Jesika Olson MD [address] [facility] [place] [address] PCP - General Internal Medicine 12/15/18 Tucker Andrews [address] [facility] [place] [place] [address] Physician Optometry 09/20/19 Audrey Nguyen, [facility] [address] [place] [address] Pharmacist Pharmacy 02/21/20 Back Tender Paper Machine Relationship Specialty Start Date End Date Jesika Olson MD [address] [place] [address] PCP - General Internal Medicine 12/15/18 Tucker Andrews [address] [facility] [place] [place] [address] Physician Optometry 09/20/19 Audrey Nguyen, [facility] [address] [place] [address] Pharmacist Pharmacy 02/21/20 Back Tender Paper Machine Relationship Specialty Start Date End Date Jesika Olson MD [address] [facility] [place] [address] PCP - General Internal Medicine 12/15/18 Tucker Andrews [address] [place] [address] Physician Optometry 09/20/19 Audrey Nguyen, [facility] [address] [facility] [place] [address] Pharmacist Pharmacy 02/21/20 Back Tender Paper Machine Relationship Specialty Start Date End Date Jesika Olson MD [address] [facility] [place] [address] PCP - General Internal Medicine 12/15/18 Tucker Andrews [address] [place] [address] Physician Optometry 09/20/19 Audrey Nguyen, [facility] [address] [facility] [place] [address] Pharmacist Pharmacy 02/21/20 Back Tender Paper Machine Relationship Specialty Start Date End Date Jesika Olson MD [address] [facility] [place] [place] [address] PCP - General Internal Medicine 12/15/18 Tucker Andrews [address] [place] [address] Physician Optometry 09/20/19 [facility] [address] [facility] [place] [address] Pharmacist Pharmacy 02/21/20 Back Tender Paper Machine Relationship Specialty Start Date End Date Jesika Olson MD [address] [facility] [place] [address] PCP - General Internal Medicine 12/15/18 Tucker Andrews [address] [place] [address] Physician Optometry 09/20/19 [facility] [address] [facility] [place] [address] Pharmacist Pharmacy 02/21/20 Back Tender Paper Machine Relationship Specialty Start Date End Date Jesika Olson MD [address] [place] [address] PCP - General Internal Medicine 12/15/18 Tucker Andrews [address] [place] [address] Physician Optometry 09/20/19 Audrey Nguyen, [facility] [address] [facility] [place] [address] Pharmacist Pharmacy 02/21/20 Back Tender Paper Machine Relationship Specialty Start Date End Date Jesika Olson MD [address] [facility] [place] [place] [address] PCP - General Internal Medicine 12/15/18 Tucker Andrews [address] [place] [address] Physician Optometry 09/20/19 Audrey Nguyen, [facility] [address] [facility] [place] [place] [address] Pharmacist Pharmacy 02/21/20 Back Tender Paper Machine Relationship Specialty Start Date End Date Jesika Olson MD [address] [facility] [place] [address] PCP - General Internal Medicine 12/15/18 Tucker Andrews [address] [place] [address] Physician Optometry 09/20/19 Audrey Nguyen, [facility] [address] [facility] [place] [address] Pharmacist Pharmacy 02/21/20 Back Tender Paper Machine Relationship Specialty Start Date End Date Jesika Olson MD [address] [facility] [place] [address] PCP - General Internal Medicine 12/15/18 Tucker Andrews [address] [place] [address] Physician Optometry 09/20/19 Audrey Nguyen, [facility] [address] [facility] [place] [address] Pharmacist Pharmacy 02/21/20 Back Tender Paper Machine Relationship Specialty Start Date End Date Jesika Olson MD [address] [facility] [place] [address] PCP - General Internal Medicine 12/15/18 Tucker Andrews [address] [place] [address] Physician Optometry 09/20/19 Audrey Nguyen, [facility] [address] [facility] [place] [address] Pharmacist Pharmacy 02/21/20 Back Tender Paper Machine Relationship Specialty Start Date End Date Jesika Olson MD [address] [place] [address] PCP - General Internal Medicine 12/15/18 Tucker Andrews [address] [facility] [place] [address] Physician Optometry 09/20/19 Audrey Nguyen, [facility] [address] [place] [address] Pharmacist Pharmacy 02/21/20 Back Tender Paper Machine Relationship Specialty Start Date End Date Jesika Olson MD [address] [place] [address] PCP - General Internal Medicine 12/15/18 Tucker Andrews [address] [facility] [place] [address] Physician Optometry 09/20/19 Audrey Nguyen, [facility] [address] [place] [address] Pharmacist Pharmacy 02/21/20 Back Tender Paper Machine Relationship Specialty Start Date End Date Jesika Olson MD [address] [place] [address] PCP - General Internal Medicine 12/15/18 Tucker Andrews [address] [place] [address] Physician Optometry 09/20/19 Audrey Nguyen, [facility] [address] [place] [address] Pharmacist Pharmacy 02/21/20 Back Tender Paper Machine Relationship Specialty Start Date End Date Jesika Olson MD [address] [place] [address] PCP - General Internal Medicine 12/15/18 Tucker Andrews [address] [place] [address] Physician Optometry 09/20/19 Audrey Nguyen, [facility] [address] [place] [address] Pharmacist Pharmacy 02/21/20 Back Tender Paper Machine Relationship Specialty Start Date End Date Jesika Olson MD [address] [place] [address] PCP - General Internal Medicine 12/15/18 Tucker Andrews [address] [place] [address] Physician Optometry 09/20/19 Audrey Nguyen, [facility] [address] [place] [address] Pharmacist Pharmacy 02/21/20 Back Tender Paper Machine Relationship Specialty Start Date End Date Jesika Olson MD [address] [place] [address] PCP - General Internal Medicine 12/15/18 Tucker Andrews [address] [place] [address] Physician Optometry 09/20/19 Audrey Nguyen, [facility] [address] [place] [address] Pharmacist Pharmacy 02/21/20 Back Tender Paper Machine Relationship Specialty Start Date End Date Jesika Olson MD [address] [place] [address] PCP - General Internal Medicine 12/15/18 Tucker Andrews [address] [place] [address] Physician Optometry 09/20/19 Audrey Nguyen, [facility] [address] [place] [address] Pharmacist Pharmacy 02/21/20 Back Tender Paper Machine Relationship Specialty Start Date End Date Jesika Olson MD [address] [facility] [place] [address] PCP - General Internal Medicine 12/15/18 Tucker Andrews [address] [place] [address] Physician Optometry 09/20/19 Audrey Nguyen, [facility] [address] [place] [address] Pharmacist Pharmacy 02/21/20 Back Tender Paper Machine Relationship Specialty Start Date End Date Jesika Olson MD [address] [facility] [place] [address] PCP - General Internal Medicine 12/15/18 Tucker Andrews [address] [place] [address] Physician Optometry 09/20/19 Audrey Nguyen, [facility] [address] [place] [address] Pharmacist Pharmacy 02/21/20 Back Tender Paper Machine Relationship Specialty Start Date End Date Jesika Olson MD [address] [place] [address] PCP - General Internal Medicine 12/15/18 Tucker Andrews [address] [place] [address] Physician Optometry 09/20/19 Audrey Nguyen, [facility] [address] [place] [address] Pharmacist Pharmacy 02/21/20 Back Tender Paper Machine Relationship Specialty Start Date End Date Jesika Olson MD [address] [place] [address] PCP - General Internal Medicine 12/15/18 Tucker Andrews [address] [place] [address] Physician Optometry 09/20/19 Audrey Nguyen, [facility] [address] [place] [address] Pharmacist Pharmacy 02/21/20 INFORMATION SOURCE (unrecogn ized [...] BE BASED ON THE PRIMARY CLINICAL RECORDS. [facility]. provides no warranty or guarantee of the accuracy or completeness of information in this document.
--- NOTE | 2023-07-03 07:14 | OP.PCM_ITS ---
Report of Operation Date of Procedure: 07/03/23 Description of Surgical Findings:: REPORT OF OPERATION PREOPERATIVE DIAGNOSES: 1. Lumbar stenosis, spondylosis. 2. Chronic back pain POSTOPERATIVE DIAGNOSES: 1. Lumbar stenosis, spondylosis. 2. Chronic back pain PROCEDURE PERFORMED: 1. T9-10 partial bilateral laminectomies. 2. Dorsal column stimulator paddle lead placement. 3. Subcutaneous placement of dorsal column stimulator generator. 4. One hour of complex programming postoperatively. STATEMENT OF MEDICAL NECESSITY: This patient is a 67-year-old female with intractable back and leg pain. Image studies confirm the above diagnoses. The patient has opted for treatment of operative intervention, understanding the risks to include but not limited to infection, bleeding,, damage to nerves, arteries and veins, possibility of continued pain, paralysis, need for additional surgery, hardware failure, instability, pulmonary embolism, heart attack, stroke, or . DESCRIPTION OF PROCEDURE: The patient was identified in the preoperative holding area. There, the patient received the preoperative IV antibotics and then transferred to the operating suite. Once in the operating suite, after general endotracheal anesthesia was established, the patient was transferred to the [place] operating table in the prone position. All bony prominences were padded accordingly. The thoracolumbar spine was prepped and draped in standard surgical fashion. Incision was made over the thoracolumbar spine. An incision was centered over the T9-10 interlaminar space, taken down to the thoracic fascia. The fascia was then divided and subperiosteal dissection was taken down to the level of the bilateral T9-10 facet joints. Deep retractors were placed. Partial bilateral laminectomies were performed at the T9-10 interspace, with part of the inferior lamina of T9, and superior lamina of T10. At this point the paddle lead was placed spanning from T8 inferiorly. It was then anchored to the fascia using standard anchors with a silk suture. A second incision was made in the left posterior iliolumbar region as a battery pocket. Wires from the stimulator were then passed subcutaneously with a passing device to the battery pocket and then connected to a new generator battery and the battery was implanted into the pocket. Both incisions were then irrigated and closed with #1 vicryl for the fascia, 2-0 vicryl for subcutaneous, and 2-0 nylon for skin. Neuromonitoring was maintained at baseline throughout the case. Sterile dressing was applied with 4 x 4, ABD, and tape. Sponge, instrument, and needle counts were correct at the end of the case. The patient was extubated, taken to PACU without incident. Then one hour was spent with complex programming when the patient recovered Surgeon: Kodak Mathew Type of Anesthesia: General Estimated Blood Loss (mL): 20 cc Fluids Replaced: 1300 cc Grafts/Implants Used: [employer] Complications None Admit VTE Documentation VTE Present on Admission: No
--- NOTE | 2023-07-03 07:14 | PCM.PN.ORT ---
Subjective Subjective Seen and examined postop. Resting comfortably. Pain controlled. No complaints Objective Data Objective Data Vital Signs: Vital Signs Temp Pulse Resp BP Pulse Ox O2 Del Method 97 F L 72 16 124/69 H 97 Room Air 07/03/23 06:44 07/03/23 06:44 07/03/23 06:44 07/03/23 06:44 07/03/23 06:44 07/03/23 06:44 Oxygen Delivery Method Room Air Weight: 134 lb Body Mass Index (BMI) 22.3 Physical Exam Const alert, oriented x3 and no apparent distress General Appearance: cooperative, comfortable and well kempt HEENT normocephalic and head/scalp atraumatic Head and Scalp: normal to inspection Eyes EOMs intact bilaterally and conjunctivae normal Neck full ROM General: normal visual inspection Chest inspection of chest normal and palpation of chest normal Resp normal respiratory effort and normal air movement Cardio regular rate, regular rhythm and peripheral pulses 2+ throughout GI soft to palpation, non-tender and non-distended Back/Spine Back/Spine Narrative: Dressings clean dry and intact Cervical Spine: cervical ROM normal Thoracic Spine / Upper Back: normal to inspection Lumbar Spine / Lower Back: normal to inspection Extremity normal to inspection, full ROM, normal capillary refill, no clubbing, cyanosis or edema and no calf tenderness Skin no rashes or lesions noted General Skin Exam: no breakdown Neuro oriented x3, CN's II-XII intact bilaterally, moves all extremities, no focal motor deficits, no sensory deficits noted and deep tendon reflexes 2+ bilaterally Motor Exam: muscle tone normal throughout Assessment & Plan Assessment/Plan (1) Lumbar spondylosis: PLAN: Okay to admit See orders Discharge planning, likely home tomorrow
--- NOTE | 2023-07-03 07:15 | PCM.DC.SUM ---
Providers Date of Admission: 07/03/23 Primary Care Physician: Dr. Yary Olson MD Reason For Visit: LUMBAR SPONDYLOSIS Medications at Discharge Home Medications dulaglutide 1.5 mg/0.5 mL subcutaneous pen injector 3 mg subcut SA DIABETES 07/16/18 levothyroxine 100 mcg tablet 100 mcg PO MOTUWETHFRSA THYROID 07/16/18 lisinopril 5 mg tablet 5 mg PO DINNER PROTECT KIDNEYS 07/16/18 metformin 500 mg tablet 1,000 mg PO BID DIABETES 07/16/18 omeprazole 20 mg tablet,delayed release 20 mg PO LUNCH GERD 07/16/18 alendronate 70 mg tablet 70 mg PO SA BONE HEALTH 06/20/23 ascorbic acid (vitamin C) 500 mg tablet (C-500) 500 mg PO DAILY SUPPLEMENT 06/20/23 atorvastatin 20 mg tablet 20 mg PO QHS CHOLESTEROL 06/20/23 coenzyme Q10 100 mg capsule (CoQ-10) 200 mg PO DAILY SUPPLEMENT 06/20/23 diclofenac sodium 1 % topical gel (Voltaren Arthritis Pain) 2 g topical PRN ARTHRITIS 06/20/23 ferrous sulfate 325 mg (65 mg iron) tablet (Feosol) 325 mg PO DAILY ANEMIA 06/20/23 insulin glargine 100 unit/mL (3 mL) subcutaneous pen (Lantus Solostar U-100 Insulin) 25 unit subcut DAILY DIABETES 06/20/23 ketoconazole 1 % shampoo 1 applic topical Q3D HAIR 06/20/23 levothyroxine 100 mcg capsule 50 mcg PO MOORE THYROID 06/20/23 magnesium 100 mg capsule 100 mg PO DAILY SUPPLEMENT 06/20/23 tizanidine 2 mg capsule 2 mg PO Q6H PRN muscle spasticity 06/20/23 hydrocodone-acetaminophen 5-325mg 5mg-325mg 1 tab PO Q6H 7 days #28 tabs 07/03/23 Hospital Course Operations - (T9-10 laminectomy, implantation of permanent spinal cord stimulator lead and generator) Summary of Care Provided Minutes Spent on Discharge: 15 Hospital Course: The patient is a 67-year-old female who underwent implantation of permanent spinal cord stimulator lead and generator on 07/03/2023. She was subsequently admitted. The hospitalist was consulted for medical management. The patient progressed well. Her pain was controlled and she was mobilizing well. No significant medical issues were reported. The patient was subsequently discharged home on 07/04/2023 to follow-up with Dr. Mathew in 3 weeks Physical Exam Const alert, oriented x3 and no apparent distress General Appearance: cooperative, comfortable and well kempt Neck full ROM General: normal visual inspection Chest inspection of chest normal and palpation of chest normal Resp normal respiratory effort and normal air movement Effort and Inspection: able to speak in complete sentences Cardio regular rate and peripheral pulses 2+ throughout GI soft to palpation, non-tender and non-distended Back/Spine Back/Spine Narrative: Dressings clean dry and intact. Incision is well-approximated with interrupted sutures in place. No tenderness erythema drainage or fluctuance Cervical Spine: cervical ROM normal Thoracic Spine / Upper Back: normal to inspection Lumbar Spine / Lower Back: normal to inspection Extremity normal to inspection, full ROM, normal capillary refill, no clubbing, cyanosis or edema and no calf tenderness Skin no rashes or lesions noted General Skin Exam: no breakdown Neuro oriented x3, CN's II-XII intact bilaterally, moves all extremities, no focal motor deficits, no sensory deficits noted and deep tendon reflexes 2+ bilaterally Motor Exam: strength 5/5 throughout and muscle tone normal throughout Weight / BMI Weight Weight: 134 lb Body Mass Index (BMI) 22.3 D/C Instructions Discharge Diet: No restrictions Additional Activity Instructions: No repetitive bending twisting or lifting greater than 5 pounds. No reaching above head Call your doctor if your incision/area has: Continuous Slow Oozing, Sudden Increased Bleeding, Increased Pain/ Swelling, Increased Redness, Foul Smelling Discharge and Swelling at the incision site Call your doctor if you observe: Fever of 101 or Higher, Coldness, Increased Pain, Numbness or Tingling, Change in Color, Inability to urinate, Inability to have a bowel movement, Using more than 1 pad per hour, Shortness of breath, Dizziness, Fainting spells, Swelling in the ankles, Chest pain, Prolonged hiccupping, Increased palpitations (irregular heartbeat), Calf discomfort and Uncontrolled pain Cleanse incision/area with: Do not get Incision Wet and Keep Dressing Clean & Dry Additional Dressing/Incision Instructions: Change dressings daily with gauze and tape. Leave dermabond mesh in place. Use waterproof dressings to shower Additional Instructions: 1. During your procedure, you received sedation through your IV. Please follow these instructions for the next 24 hours: Do not drive a motor vehicle, do not drink any alcoholic beverages, and do not sign any legal documents or make personal or business decisions. A responsible adult should stay with you at least 6 hours after the procedure. 2. Keep your surgical site/incision clean and the dressing dry and intact. You may use an ice pack at the surgical site to reduce any swelling or discomfort. 3. Monitor the incision site for any signs or symptoms of infection. Watch for redness, excessive swelling or drainage, or continued pain at the incision site after 3 days. Contact your physician immediately for a fever, chills or a temperature of 101.5? F or greater. 4. Take your medication exactly as prescribed by your physician. Do not attempt to wean yourself off any of your medications even though your pain is improving. This process needs to be carefully monitored by your doctor. Take any antibiotics prescribed exactly as directed and until they are gone. 5. Avoid stretching, bending, pulling, twisting or any sudden movements. Do not bend or twist at the waist. 6. No lifting greater than 5 pounds. 7. Do not operate a motor vehicle, equipment or a power tool while taking pain medication 8. Do not have any manipulation done by a chiropractor or any other physician without first consulting with the surgeon 9. Please contact our office if you are even scheduled for a CT scan or an MRI. 10. Please call us if you have any questions, problems or concerns. Please Follow Up With: Kodak Mathew DO When: 3 weeks Meaningful Use Info Meaningful Use Diagnoses (Choose all that apply): None applicable Discharge Plan Admission Admit Date/Time: 07/03/23 07:18 Attending Provider: Kodak Mathew Primary Care Provider: Yary Olson Consulting Providers: Saturnino Kyle Instructions Additional Instructions / Restrictions: 1. During your procedure, you received sedation through your IV. Please follow these instructions for the next 24 hours: Do not drive a motor vehicle, do not drink any alcoholic beverages, and do not sign any legal documents or make personal or business decisions. A responsible adult should stay with you at least 6 hours after the procedure. 2. Keep your surgical site/incision clean and the dressing dry and intact. You may use an ice pack at the surgical site to reduce any swelling or discomfort. Change dressing daily with gauze and tape. Leave mesh on incision. use waterproof dressing to shower. 3. Monitor the incision site for any signs or symptoms of infection. Watch for redness, excessive swelling or drainage, or continued pain at the incision site after 3 days. Contact your physician immediately for a fever, chills or a temperature of 101.5? F or greater. 4. Take your medication exactly as prescribed by your physician. Do not attempt to wean yourself off any of your medications even though your pain is improving. This process needs to be carefully monitored by your doctor. Take any antibiotics prescribed exactly as directed and until they are gone. 5. Avoid stretching, bending, pulling, twisting or any sudden movements. Do not bend or twist at the waist. 6. No lifting greater than 5 pounds. 7. Do not operate a motor vehicle, equipment or a power tool while taking pain medication 8. Do not have any manipulation done by a chiropractor or any other physician without first consulting with the surgeon 9. Please contact our office if you are even scheduled for a CT scan or an MRI. 10. Please call us if you have any questions, problems or concerns. Discharge Orders/Prescriptions Prescriptions: New hydrocodone-acetaminophen 5-325 mg tablet 1 tab PO Q6H 7 Days Qty: 28 0RF Continued metformin 500 MG tablet 1,000 mg PO BID levothyroxine 100 MCG tablet 100 mcg PO MOTUWETHFRSA lisinopril 5 MG tablet 5 mg PO DINNER omeprazole 20 MG tablet,delayed release (DR/EC) 20 mg PO LUNCH dulaglutide 1.5 MG/0.5 ML pen injector 3 mg subcut SA levothyroxine 100 mcg capsule 50 mcg PO MOORE atorvastatin 20 mg tablet 20 mg PO QHS tizanidine 2 mg capsule 2 mg PO Q6H PRN (Reason: muscle spasticity) Rx Instructions: do not exceed 3 doses per 24 hrs insulin glargine [Lantus Solostar U-100 Insulin] 100 unit/mL (3 mL) insulin pen 25 unit SUBCUT DAILY ferrous sulfate [Feosol] 325 mg (65 mg iron) tablet 325 mg PO DAILY ascorbic acid (vitamin C) [C-500] 500 mg tablet 500 mg PO DAILY magnesium 100 mg capsule 100 mg PO DAILY alendronate 70 mg tablet 70 mg PO SA coenzyme Q10 [CoQ-10] 100 mg capsule 200 mg PO DAILY diclofenac sodium [Voltaren Arthritis Pain] 1 % gel 2 g topical PRN ketoconazole 1 % shampoo 1 applic topical Q3D Referrals / Follow Up: Yary Olson MD [Primary Care Provider] - Kodak Mathew DO [Med Staff - Active Staff] - Disposition Disposition (needs filled in before D/C Order can be placed): Home, Self Care
[2023-07-03 07:22] LABS: Bedside Glucose 187 mg/dL (74-106)
[2023-07-03] MEDS: Cefazolin 2 GM in 0.9% Normal Saline (100mL Bag) 100 ML IV (07:39)
[2023-07-03] MEDS: THROMBIN (RECOMBINANT) 20,000 UNIT VIAL 20000 UNIT TOPICAL (08:47)
[2023-07-03] MEDS: Bupivacaine 0.25% 30 ML Vial (09:24)
[2023-07-03 10:15] LABS: Bedside Glucose 147 mg/dL (74-106)
[2023-07-03] MEDS: oxyCODONE 5 MG Tablet PO ×3 (12:16→22:35)
[2023-07-03] MEDS: Pantoprazole Sodium 20 MG Tablet PO (12:43)
[2023-07-03] MEDS: Acetaminophen 500 MG Tablet 1000 MG PO ×2 (14:09→22:34)
[2023-07-03] MEDS: Cefazolin 1 GM/50 ML BAG IV ×2 (15:19→22:38)
[2023-07-03] MEDS: Lactated Ringers 1,000 ML 100 ML IV ×2 (15:22→20:06)
--- NOTE | 2023-07-03 15:52 | PN.HOSP_ITS ---
Reason for Visit Reason for Visit: Comes requested by Dr. Mathew for postoperative medical management Subjective Subjective Feeling fine. Has significant back pain though. Objective Data Objective Data Vital Signs: Vital Signs Temp Pulse Resp BP Pulse Ox O2 Del Method 37.2 C 78 18 107/39 L 98 Room Air 07/03/23 14:41 07/03/23 14:41 07/03/23 14:41 07/03/23 14:41 07/03/23 14:41 07/03/23 14:41 Oxygen Delivery Method Room Air Weight: 60.781 kg Body Mass Index (BMI) 22.3 Intake & Output: Intake and Output for Last 24 Hours 07/01/23 07/02/23 07/03/23 23:59 23:59 23:59 Intake Total 1110 / 1110 Output Total 300 / 300 Balance 810 / 810 Lab / Micro Data Labs: Laboratory Results - last 24 hr 07/03/23 06:41: POC Glucose 187 H 07/03/23 09:57: POC Glucose 147 H Radiography Diagnostic Testing: Radiology Impression Thoracic Spine X-Ray 07/03/23 06:30 IMPRESSION: Intraoperative imaging provided for T9-T10 laminectomy and spinal cord stimulator insertion. Electronically Signed: Kemal Adams MD at 9:49 EST , Physical Exam Const alert and no apparent distress HEENT head/scalp atraumatic and moist oral mucous membranes Resp normal respiratory effort, no retractions, no use of accessory muscles and clear to auscultation bilaterally Cardio regular rate, regular rhythm, S1 normal heart sound and S2 normal heart sound GI normal to inspection, nondistended, normoactive bowel sounds, soft to palpation, non-tender and non-distended Skin Skin Narrative: Bandage over back. No surrounding erythema beyond that. Did not remove bandage. Assessment & Plan Assessment/Plan (1) Lumbar spondylosis: PLAN: Plan Diabetes mellitus type 2 * Continue with glargine. Since patient is going to be staying here we will add sliding scale insulin. Hypertension: Continue with lisinopril Hypothyroidism continue levothyroxine Lumbar spondylosis * Status post T9-10 partial bilateral laminectomies. Dorsal column stimulators, subcutaneous plan assessment dorsal column stimulator generator on * Management per spine surgery. Patient medically stable for discharge. Will defer disposition to spine surgery. I will have the patient on sliding scale insulin but that would not need to be continued upon discharge. Thank you for the consult, will follow peripherally. Charges/Coding Visit Charges Inpatient E&M: 42936 Subs Hosp L2
[2023-07-03] MEDS: Insulin Lispro 100 UNIT/ML INSULN.PEN SC (16:52)
[2023-07-03] MEDS: metFORMIN HCl 1,000 MG Tablet 1000 MG PO (16:53)
[2023-07-03] MEDS: Lisinopril 5 MG Tablet PO (16:53)
[2023-07-03 17:38] LABS: Bedside Glucose 223 mg/dL (74-106)
[2023-07-03] MEDS: Atorvastatin Calcium 20 MG Tablet PO (22:34)
[2023-07-04 00:28] LABS: Bedside Glucose 223 mg/dL (74-106)
[2023-07-04 01:12] VITALS: BP 149/59; PULSE 68; RESP 20; TEMP 36.8; O2SAT 94
[2023-07-04 04:57] VITALS: BP 110/59; PULSE 74; RESP 18; TEMP 37; O2SAT 95
[2023-07-04] MEDS: Acetaminophen 500 MG Tablet 1000 MG PO (04:58)
[2023-07-04] MEDS: Levothyroxine 100 MCG Tablet PO (04:58)
[2023-07-04] MEDS: oxyCODONE 5 MG Tablet PO ×2 (04:59→10:05)
[2023-07-04] MEDS: Insulin Lispro 100 UNIT/ML INSULN.PEN SC (06:20)
[2023-07-04 06:40] LABS: Bedside Glucose 164 mg/dL (74-106)
[2023-07-04] MEDS: metFORMIN HCl 1,000 MG Tablet 1000 MG PO (08:29)
[2023-07-04] MEDS: Ferrous Sulfate 325 MG Tablet PO (08:29)
[2023-07-04] MEDS: Insulin Glargine-YFGN 100 UNIT/ML Pen 25 UNIT SC (08:30)
[2023-07-04] MEDS: Magnesium Chloride 64 MG Delay Rel.Tablet PO (08:30)
[2023-07-04] MEDS: Ascorbic Acid 500 MG Tablet PO (08:30)
[2023-07-04] MEDS: Ensure Surgery 237 ML LIQUID PO (08:34)
[2023-07-04] MEDS: Glucerna Shake 120 ML LIQUID PO (08:34)
--- NOTE | 2023-07-04 09:05 | CASEMGMT ---
MISSY PARHAM Assessment: Face to Face with pt for initial transition planning/care coordination assessment. RN DIONE introduced self and role at [facility], pt voices understanding and consents to assessment. Pt is A&O x4 and answers all questions appropriately at this time. Pt sitting up in chair, just finished working with therapy. Care providers, pharmacy, and demographics verified/updated. Admitting Dx: lumbar spondylosis PCP:[facility] Specialists:kristina Mathew; chen Moise Preferred Pharmacy: [facility] Retail Insurance: [facility] Prescription Benefit: yes LNOK: Matthew Collado, ; Negin Felder, dtr Living Arrangements: Pt lives with in a two story home with 1 step to enter. Pt reports she is I in ADL's and denies concerns at home. Transportation: Pt drives self and denies concerns with transportation. Pt is able to transport her until she can drive again. DME:None HHC/SNF: Denies hx Pt states no concerns with going home at time of dc. Pt states no further concerns/needs. CM to follow. Advised pt to ask CM if any further question/concerns/needs arise, voices understanding. Pt Goal: Home Plan: Home
[2023-07-04 09:11] VITALS: BP 99/62; PULSE 73; RESP 16; TEMP 36.8; O2SAT 98
[2023-07-04 09:22] VITALS: PULSE 74
--- NOTE | 2023-07-04 10:03 | CASEMGMT ---
Met with patient to complete ZAMBRANO form. ZAMBRANO form explained to patient who voiced understanding and signed form. Original form placed in pt?s chart and copy provided to?patient. Louise Woods, Discharge Planning Asst
--- NOTE | 2023-07-04 10:53 | PHA.DC_ITS ---
Pharmacy [facility] Med Reconciliation Pharmacy Service has performed discharge medication reconciliation for this patient. Attempted to staff counsel patient on homegoing [place], but patient had already been discharged at time of counselling attempt. The patient's discharge medication list was reviewed for discrepancies and discrepancies were resolved. Medications at Discharge Home Medications dulaglutide 1.5 mg/0.5 mL subcutaneous pen injector 3 mg subcut SA DIABETES 07/16/18 levothyroxine 100 mcg tablet 100 mcg PO MOTUWETHFRSA THYROID 07/16/18 lisinopril 5 mg tablet 5 mg PO DINNER PROTECT KIDNEYS 07/16/18 metformin 500 mg tablet 1,000 mg PO BID DIABETES 07/16/18 omeprazole 20 mg tablet,delayed release 20 mg PO LUNCH GERD 07/16/18 alendronate 70 mg tablet 70 mg PO SA BONE HEALTH 06/20/23 ascorbic acid (vitamin C) 500 mg tablet (C-500) 500 mg PO DAILY SUPPLEMENT 06/20/23 atorvastatin 20 mg tablet 20 mg PO QHS CHOLESTEROL 06/20/23 coenzyme Q10 100 mg capsule (CoQ-10) 200 mg PO DAILY SUPPLEMENT 06/20/23 diclofenac sodium 1 % topical gel (Voltaren Arthritis Pain) 2 g topical PRN ARTHRITIS 06/20/23 ferrous sulfate 325 mg (65 mg iron) tablet (Feosol) 325 mg PO DAILY ANEMIA 06/20/23 insulin glargine 100 unit/mL (3 mL) subcutaneous pen (Lantus Solostar U-100 Insulin) 25 unit subcut DAILY DIABETES 06/20/23 ketoconazole 1 % shampoo 1 applic topical Q3D HAIR 06/20/23 levothyroxine 100 mcg capsule 50 mcg PO MOORE THYROID 06/20/23 magnesium 100 mg capsule 100 mg PO DAILY SUPPLEMENT 06/20/23 tizanidine 2 mg capsule 2 mg PO Q6H PRN muscle spasticity 06/20/23 hydrocodone-acetaminophen 5-325mg 5mg-325mg 1 tab PO Q6H 7 days #28 tabs 07/03/23
== END 2023-07-04 10:45 | disposition home or self-care (01) ==
LOC: SDC 13:58 → MS3 13:58
PROVIDERS: Admitting Provider Orthopaedic Surgery; PCP Internal Medicine; Referring Provider Orthopaedic Surgery; Visit Provider Orthopaedic Surgery
PROC: (CPT 63655; principal; 2023-07-03 07:00)
DX: Z45.42 Encounter for adjustment and management of neurostimulator (principal); Z79.4 Long term (current) use of insulin; E11.9 Type 2 diabetes mellitus without complications; M48.061 Spinal stenosis, lumbar region without neurogenic claudication; G89.29 Other chronic pain; M47.816 Spondylosis without myelopathy or radiculopathy, lumbar region; I10 Essential (primary) hypertension; E03.9 Hypothyroidism, unspecified; Z79.890 Hormone replacement therapy; Z79.899 Other long term (current) drug therapy; K21.9 Gastro-esophageal reflux disease without esophagitis
CPT/HCPCS: 63685; 63655; 00300; 72070; 76000; 82962; 94668; 96361; 96365; 96366; 97161; 99221; C1778; C1820; J7120; G0378; J2405

== ENCOUNTER → 2023-08-18 | Outpatient (CLI) | payer MEDICARE, SELFPAY ==
--- NOTE | 2023-08-18 09:28 | BI_ITS ---
MAMMOGRAPHY - BILATERAL DIAGNOSTIC REASON FOR EXAM: Female, 67 years old. One-week history of a palpable lump in the deep upper central portion of the right breast. PERTINENT HISTORY: Non-contributory. TECHNIQUE: Digital bilateral breast khanh (3D mammographic acquisition) in the CC and MLO projections. 2-D mediolateral oblique (MLO) and craniocaudad (CC) views of both breasts were obtained. CAD: Full Field Digital Mammography with Computer Added Detection was performed. COMPARISON: Comparison is made with prior study of September 26, 2022 and September 25, 2021. FINDINGS: Breast Composition: The breasts are heterogeneously dense, which may obscure small masses. There are no dominant masses or suspicious calcifications. No other significant abnormalities are identified. There has been no significant change since the prior study. BI/DIAG MAMM W/CAD, BILAT IMPRESSION: Stable bilateral diagnostic mammogram. With the patient''s history of a palpable lump in the right breast, correlation with ultrasound is recommended. ASSESSMENT CATEGORY: BIRADS Category 0: Incomplete. Need additional imaging evaluation. A letter regarding these results will be sent to the patient by the facility within 30 days. Approximately 10% of breast cancers are not detected by mammography. A normal mammogram should not delay biopsy of a clinically suspicious abnormality. Electronically Signed: Kemal Adams MD at 11:17 EDT ,
--- NOTE | 2023-08-18 09:28 | US_ITS ---
STUDY: ULTRASOUND BREAST - RIGHT REASON FOR EXAM: Female, 67 years old. Palpable lump in the right breast. TECHNIQUE: Axial and longitudinal images of the RIGHT breast were performed with a high resolution ultrasound transducer. # OF IMAGES: 12 COMPARISON: Comparison is made with prior mammogram done earlier in the day. FINDINGS: RIGHT Breast: The deep upper inner quadrant of the right breast was examined with ultrasound. The palpable lump corresponds to the patient''s rib. US/Breast Limited Unilateral IMPRESSION: The palpable lump corresponds to the patient''s breathing. ASSESSMENT CATEGORY: BIRADS Category 1: Negative. A letter regarding these results will be sent to the patient by the facility within 30 days. Electronically Signed: Kemal Adams MD at 15:33 EDT ,
== END | disposition home or self-care (01) ==
PROVIDERS: PCP Internal Medicine; Visit Provider Nurse Practitioner Family
DX: N60.19 Diffuse cystic mastopathy of unspecified breast (principal); N63.12 Unspecified lump in the right breast, upper inner quadrant
CPT/HCPCS: 76642; 77062; 77066; G0279